=== PATIENT | male | born 1965 | race Caucasian/White ===

== ENCOUNTER 2017-07-20 05:51 | Day surgery (SDC) | payer OTHER, SELFPAY ==
[2017-07-20 06:16] VITALS: BP 135/84; PULSE 66; RESP 16; TEMP 36.3; O2SAT 98; BMI 40.1
[2017-07-20] MEDS: oxyCODONE HCl Cr 10 MG Tablet PO (06:27)
--- NOTE | 2017-07-20 07:06 | PCM.IMDPSTOP ---
Immediate Post-Op Note Date of Procedure: 07/20/17 Primary Surgeon/Physician: Ryan Recinos DO plate cutter: Christian Kohler Pre-Operative Diagnosis: Left knee medial meniscus tear, left medial tibial plateau stress fracture with subchondral edema. Internal derangement of the knee. Post-Operative Diagnosis: Same as above Surgery/Procedure Performed:: Left knee arthroscopy with medial meniscus debridement, partial synovectomy, micro internal fixation of the medial tibial plateau Description of Surgical Findings:: See dictation Estimated Blood Loss: 10 Specimen's removed: None Type of Anesthesia:: General, General/Regional ASA Class: ASA1 Normal Healthy Patient - Admit VTE Documentation VTE Present on Admission: No VTE Mechan Device Prophylaxis: SCD's, Knee High [place] Hose VTE Pharm Prophylaxis ordered?: No Reason prophylaxis not ordered:: Treatment Not Indicated
--- NOTE | 2017-07-20 07:07 | PCM.DC.ORTHO ---
Discharge Activity: Return to Normal Activity, May not drive while taking narcotic pain medications., May Shower, Use Crutches May shower in (days): 2 May resume sexual activity in: No Restrictions Ice area for (Minutes): 20 - Use Polar Care as needed Weight Bearing Status: Weight bearing as tolerated Keep extremity elevated above heart level: Left Leg Additional Activity Instructions:: Activity as tolerated. May shower in 2 days. Do not submerge wound. Remove dressing completely. Replace Micheal wrap to keep swelling down. Range of motion as tolerated. Call your doctor if your incision/area has: Continuous Slow Oozing, Sudden Increased Bleeding, Increased Pain/ Swelling, Increased Redness, Foul Smelling Discharge, Swelling at the incision site Call your doctor if you observe: Fever of 101 or Higher, Coldness, Increased Pain, Numbness or Tingling, Change in Color, Inability to urinate, Inability to have a bowel movement, Using more than one pad per hour, Shortness of breath, Dizziness, Fainting spells, Swelling in the ankles, Chest pain, Prolonged hiccoughing, Increased palpitations (irregular heartbeat), Calf discomfort, Uncontrolled pain Suture Line Care: Avoid Pulling/Pushing, Avoid Pinching/Bending Change Dressing in (Days):: 2 Remove Dressing in (days):: 2 Cleanse incision/area with: Soap & Water Allergies/Adverse Reactions: Allergies No Known Allergies Allergy (Verified 07/13/17 10:04) Medications to take at Discharge Amlodipine [Norvasc] 10 mg PO DAILY 07/13/17 Lisinopril/Hydrochlorothiazide [Zestoretic 20-12.5 mg Tablet] 1 each PO DAILY 07/13/17 Docusate Sodium [Colace] 100 mg PO BID PRN PRN #10 cap 07/20/17 Oxycodone [Oxyir] 10 mg PO Q4H PRN PRN #60 tablet 07/20/17 ProMETHAzine [Phenergan] 25 mg PO Q4H PRN PRN #10 tab 07/20/17 The following prescriptions were given: Oxycodone [Oxyir] 10 mg PO Q4H PRN PRN #60 tablet PRN Reason: Pain ProMETHAzine [Phenergan] 25 mg PO Q4H PRN PRN #10 tab PRN Reason: Nausea Docusate Sodium [Colace] 100 mg PO BID PRN PRN #10 cap PRN Reason: Constipation Primary Care Physician: Mathtew Bender Jr. [Primary Care Provider] - Please Follow Up With: Ryan Recinos DO When: CALL [facility] FOR APPT FOR 2 WEEKS Proposed Discharge Date: 07/20/17
--- NOTE | 2017-07-20 07:10 | RAD_ITS ---
STUDY: X-RAY - LEFT KNEE REASON FOR EXAM: Male, 52 years old. Imaging provided for arthroscopy. TECHNIQUE: 2 coned-down view(s) of the knee. COMPARISON: None. FINDINGS: Intraoperative imaging was provided. A metallic nail is seen in the medial tibial plateau. RAD/Knee 1 or 2 Views IMPRESSION: Metallic nail seen in the medial tibial plateau. Electronically Signed: Dustin Patton MD at 8:54 EST Tel [phone], Service support ,
[2017-07-20] MEDS: Cefazolin 2 GM in 0.9% Normal Saline 100 ML IV (07:14)
[2017-07-20] MEDS: Bupivacaine Mpf 0.5% 30 ML VIAL (08:10)
[2017-07-20 08:39] VITALS: BP 131/81; BP 135/84; PULSE 86; RESP 18; TEMP 36.6; O2SAT 100
[2017-07-20] MEDS: Ketorolac 30 MG/ML Syringe IV (08:44)
[2017-07-20 08:45] VITALS: BP 127/81; PULSE 86; RESP 18; O2SAT 98
[2017-07-20 09:00] VITALS: BP 113/78; PULSE 81; RESP 18; O2SAT 97
--- NOTE | 2017-07-20 09:01 | OP.PCM_ITS ---
Report of Operation Date of Procedure: 07/20/17 Pre-Operative Diagnosis: Left knee medial meniscus tear, left medial tibial plateau stress fracture with subchondral edema. Internal derangement of the knee. Post-Operative Diagnosis: Same as above Surgery/Procedure Performed:: Left knee arthroscopy with medial meniscus debridement, partial synovectomy, micro internal fixation of the medial tibial plateau Description of Surgical Findings:: 52-year-old male with recalcitrant left knee pain that failed nonoperative management to include NSAIDs activity modifications physical therapy and injections. Patient had an MRI that showed subchondral edema and stress reaction to the medial tibial plateau with some degenerative changes noted. Patient had a medial meniscus tear. Having failed conservative measures patient elected for operative intervention. Patient was met in the holding area was left lower extremity was marked and identified by the with surgeon. Patient was taken the operating room in satisfactory condition with somewhat to place to identify patient up procedure limb. Patient received 2 g Ancef. He had a well-placed tourniquet left proximal thigh. He was then prepped and draped in usual fashion. Left lower extremity was elevated Esmarch used for exsanguination and tourniquet was increased to 250 mmHg for roughly 40 minutes. Anterolateral portal was established and we entered into the suprapatellar pouch. There was no return effusion. Superior lateral outflow portal was created. 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 His trochlea showed a very proximal grade 2 segment but then the mid segment was within normal limits. There was no patella maltracking. The patient had a large robust thick plical band medially. Moved in the lateral gutter and there was no loose bodies the popliteal hiatus was normal. We then moved underneath the plical band into the medial compartment established anteromedial portal. Using mechanical shaver and vapor cautery the patient underwent a standard partial synovectomy and plica resection. We performed a chondroplasty of the patella. His trochlear chondromalacia was otherwise stable. Patient's medial compartment showed chondromalacia from his plical band rubbing which was stable. However the was a drop off at roughly 10? of knee flexion moving into the mid range of motion consistent with his medial compartment changes. The patient does not show joseph eburnation of the bone yet but the cartilage is very thin through that area although globally worn. The patient showed a radial tear to the body of the meniscus medial to the posterior horn. This was mechanically debrided using biters and an shaver technique to a stable rim. The patient showed anteromedial wear patterns consistent with his femoral condyle lesion. This was grade 3 and overall nature. Again this was medially located underneath a normal-appearing medial meniscus. This was localized roughly to the 9 o'clock position of the condyle. Patient showed mild notch stenosis but the ACL and PCL are normal. Patient's lateral compartment otherwise was pristine to the femoral condyle he had no meniscal pathology and showed grade 1 to grade 2 changes across the plateau. The popliteal hiatus was normal. After performing a synovectomy chondroplasty meniscus debridement we prepared for the micro internal fixation of the stress reaction region of his medial tibial plateau. Using C-arm visualization the trocar was placed in appropriate position and drilled accordingly. We then injected the calcium phosphate cement using standard technique with gentle pressurization. The scope was left within the joint to evaluate for any extravasation of calcium flakes versus fat bubbles. Because of the cartilage maintenance we did not see any. The joint was subsequently run to be sure we did not miss anything and nothing could be seen. C-arm visualization showed no extravasation of fluid at this point time. Cement was allowed to cure for 8 minutes. This the trocar was then retracted. The portal sites were then closed with 3-0 nylon. He was injected with 50 cc of Marcaine solution around the portal sites in the trocar site on his proximal tibia. He was then dressed with Xeroform 4 x 4's Kerlix roll ABD Micheal wrap. Tourniquet was let down. I was scrubbed and available time during our procedure. Patient be weightbearing as tolerated while the knee arthroscopy protocol from [facility]. We had no drains or complications. Implants included calcium phosphate cement from [employer] using the micro internal fixation fixation technique. Any issues please contact me. data analyst: Christian Kohler Type of Anesthesia:: General, General/Regional Specimen's removed: None Estimated Blood Loss (mL): 10 - Admit VTE Documentation VTE Present on Admission: No VTE Mechan Device Prophylaxis: SCD's, Knee High [place] Hose VTE Pharm Prophylaxis ordered?: No Reason prophylaxis not ordered:: Treatment Not Indicated
[2017-07-20 09:22] VITALS: BP 114/75; BP 135/84; PULSE 80; RESP 16; TEMP 36.6; O2SAT 98
[2017-07-20] MEDS: oxyCODONE 5 MG Tablet 10 MG PO (09:50)
[2017-07-20 10:10] VITALS: BP 135/84
== END 2017-07-20 10:10 | disposition home or self-care (01) ==
LOC: SDC 05:51 → AC 05:52
PROVIDERS: Visit Provider Orthopaedic Surgery
PROC: (CPT 29870; principal; 2017-07-20 06:55)
DX: S83.242A Other tear of medial meniscus, current injury, left knee, initial encounter (principal); M84.362A Stress fracture, left tibia, initial encounter for fracture; M23.92 Unspecified internal derangement of left knee; X58.XXXA Exposure to other specified factors, initial encounter; Y93.9 Activity, unspecified; Y92.9 Unspecified place or not applicable; Y99.9 Unspecified external cause status; I10 Essential (primary) hypertension; G47.30 Sleep apnea, unspecified; Z85.828 Personal history of other malignant neoplasm of skin
CPT/HCPCS: 01400; 29855; 29881; 64447; 73560; 76000; J7120; J2405

== ENCOUNTER → 2017-09-20 15:39 | Outpatient (CLI) | payer OTHER, SELFPAY ==
--- NOTE | 2017-09-20 15:41 | RAD_ITS ---
STUDY: X-RAY - LEFT KNEE REASON FOR EXAM: Male, 52 years old. Pain of the left knee. 9 weeks past surgery. TECHNIQUE: 4 view(s) of the knee. COMPARISON: Prior left knee radiographs of March 16, 2017. Prior limited fluoroscopic views of the knee from July 20, 2017. FINDINGS: Normal visualized distal femur. Broad area of new sclerotic density in the proximal tibia under the medial tibial plateau. Normal proximal tibiofibular articulation. Advanced/increased narrowing of the medial compartment. Normal lateral femorotibial compartment. There is mild degenerative arthrosis of the patellofemoral articulation. Negative for a substantial joint effusion. The soft tissue structures are unremarkable. RAD/Knee 4 or More Views IMPRESSION: Increased narrowing of the medial compartment since the prior radiographs of March 16, 2017. A broad band of sclerosis has developed in the proximal tibia under the medial tibial plateau. Negative for acute fracture or substantial joint effusion. Electronically Signed: Daiana Sherman MD at 0:01 EDT , Service support ,
== END ==
PROVIDERS: Visit Provider Orthopaedic Surgery
DX: M17.11 Unilateral primary osteoarthritis, right knee (principal)
CPT/HCPCS: 73564

== ENCOUNTER 2017-09-20 16:30 | Outpatient (RCR) | payer OTHER, SELFPAY ==
--- NOTE | 2017-09-06 08:45 | HP.PTEVAL_ITS ---
Patient's Visit Information ERYN ERICKSON is a 52 year old M referred to Physical Therapy by Ryan Recinos DO DR.[email or web address] with a diagnosis of Left knee medial meniscus tear, left medial tibial plateau stress fracture. Date of Evaluation: 09/05/17 Physical Therapist: Nadine Rudd - Visit Plan Frequency: 2x /Week Duration: 4 Weeks Plan: Focus on LE and core s/s s/p knee scope- pain management as needed - Subjective Subjective: Patient reports that he feels worse than he has every been. Had surgery 07/20/[address] Recinos- Before surgery pain was on the tibia under the knee cap- scope and injection feels good now the pain has moved. Point tender along the medial joint line and has not gotten any better. Ice helps momentarily but does not last long distances. Back to work 2 weeks post op- eased back in. General Surgery- stands half a day for 90 minutes at a time. No radiating pain. No N/T from surgery. Describes pain as sharp/shooting. No pain when sitting. Instant he gets off of it the pain goes away. Worst: 10/10 Best: 0/10. Had PT for piriformis syndrome right side- over a year ago. Does not get a lot of exercises. No x-rays since surgery- MRI- June. Celebrex started 2 days ago. Last injection was 3 weeks ago on the lateral side of the joint. Shoes- crocs with orthotics. Sleep: no problems. PMHx: HTN , multiple right knee surgeries. Meds: Celebrex, lysinopril, hypothiaside, amlodapine. - Objective Posture: FH, RS- pt is overweight. Gait: antalgic decreased stance on the left LE- poor heel/toe pattern. Stairs: recip with 2 HR-poor control with descent and uses UE. HR/TR: able- discomfort with TR. Balance: WS but unable to SLS for greater than 3 seconds. Squat: (mini)- weight shift to the right and reports pain. Palpation: tender superior to medial joint line. ROM: 0-120 degrees. Strength: Ankle: 5/5, Knee: 4+/5 with pain, Hip: 4/5 Core: poor. Flexibility: HS: moderate, Gastroc: moderate. Observation: incision healing well no s/s of infection - Goals Goal 1:: Patient will be I with HEP and progression Goal Time Frame: 4-6 Weeks Goal 2:: Patient will asc/desc 8 stairs recip with 1 HR and good control Goal Time Frame: 4-6 Weeks Goal 3:: Patient will ambulate >300 feet with a normal gait pattern Goal Time Frame: 4-6 Weeks Goal 4:: Patient will demo 5/5 strength in LE where deficit Goal Time Frame: 4-6 Weeks - Rehabilitation Potential Physical Therapy Diagnosis: Patient presents with hypomobility s/p left knee scope. He has decreased strength and muscular endurance leading to pain with ADL 's. Rehabilitation Potential: Good - Anticipated Interventions Patient/Client Instruction: Educate patient on: Benefits of Fitness Program For the Purpose of:: To increase tolerance to activity/condition/position Therapeutic Exercise to Include: Strength training, Endurance training, Balance training, Body mechanics, Postural training, Flexibilty training, Gait and locomotor training, Dynamic Lumbar Stabilization For the Purpose of:: To improve muscle performance and motor function TENS: Yes Cryotherapy (ice pack, ice massage): Yes Thermo therapy (hot pack): Yes Ultrasound (thermal/non thermal): Yes For the Purpose of:: To decrease pain Thank you for the opportunity to evaluate your patient. For Medicare and Medicare HMO plans, please review the plan of care and approve it. It will need to be FAXED BACK to us at [phone] for Medicare purposes. Please let me know if there are questions or concerns regarding this plan of care. Physician Signature: Date:
--- NOTE | 2017-11-12 14:08 | HP.PT.NRP ---
HP - Discharge Summary (1) - Patient Information ERYN ERICKSON was seen in my office for initial evaluation on 09/05/17. The following Plan of Care was established for this patient: Initial Frequency: 2x /Week Initial Duration: 4 Weeks - Anticipated Interventions Patient/Client Instruction: Educate patient on: Benefits of Fitness Program For the Purpose of:: To increase tolerance to activity/condition/position Therapeutic Exercise to Include: Strength training, Endurance training, Balance training, Body mechanics, Postural training, Flexibilty training, Gait and locomotor training, Dynamic Lumbar Stabilization For the Purpose of:: To improve muscle performance and motor function TENS: Yes Cryotherapy (ice pack, ice massage): Yes Thermo therapy (hot pack): Yes Ultrasound (thermal/non thermal): Yes For the Purpose of:: To decrease pain This patient was last seen in our office . Pertinent comments regarding their Physical therapy will appear below: Patient has not returned for 30 days and is appropriate for discharge. Return to MD for further evaluation as needed. At this point I will be discontinuing this patient from physical therapy. I would be happy to see this patient again in the future if found appropriate by the physician. Thank you! Nadine Rudd
== END 2017-09-20 19:00 | disposition home or self-care (01) ==
LOC: PT 16:30
PROVIDERS: Visit Provider Orthopaedic Surgery
DX: Z98.890 Other specified postprocedural states (principal)
CPT/HCPCS: 97110; 97162

== ENCOUNTER → 2018-03-19 07:46 | Outpatient (CLI) | payer OTHER, SELFPAY ==
[2018-03-19 09:07] LABS: AST(SGOT) 21 U/L (15-37); Alanine Aminotransfer ALT/SGPT 41 U/L (16-61); Albumin, Serum 3.4 g/dL (3.2-5.0); Alkaline Phosphatase 84 U/L (45-117); Anion Gap 8 (5-15); BUN 14 mg/dL (7-18); BUN/Creat Ratio 18.5 RATIO (10-20); Calcium,Total 8.6 mg/dL (8.5-10.1); Chloride 104 mmol/L (98-107); Cholesterol 190 mg/dL (200); Creatinine, Serum 0.76 mg/dL (0.70-1.30); EST Glomerular Filtration Rate 115 mL/min (>60); Est Glom Filt Rate - Afr Amer 139 mL/min (>60); Globulin 3.4 g/dL (2.2-4.2); Glucose 97 mg/dL (74-106); High Density Lipoprotein 39 mg/dL; Potassium 3.5 mmol/L (3.5-5.1); Protein, Total 6.8 g/dL (6.4-8.2); Sodium Level 143 mmol/L (136-145); Triglycerides 120 mg/dL; Very Low Density Lipoprotein 24 mg/dL (5-40)
== END ==
PROVIDERS: Family Provider Family Medicine; PCP Family Medicine; Referring Provider Family Medicine; Visit Provider Family Medicine
DX: I10 Essential (primary) hypertension (principal); E78.5 Hyperlipidemia, unspecified
CPT/HCPCS: 36415; 80053; 80061

== ENCOUNTER → 2018-07-05 14:56 | Outpatient (CLI) | payer OTHER, SELFPAY ==
[2018-07-05 14:56] VITALS: BMI 40.8
--- NOTE | 2018-07-05 14:59 | RAD_ITS ---
STUDY: X-RAY - PELVIS AND BILATERAL HIPS REASON FOR EXAM: Bilateral hip pain, fall today. TECHNIQUE: AP view of the pelvis.? 2 views of the right hip, and 2 views of the left hip were obtained. COMPARISON: None. FINDINGS: Normal visualized soft tissue structures. There is enthesopathy of the right iliac wing. Normal bilateral superior and inferior pubic rami. Normal pubic symphysis. Normal bilateral ischial tuberosities. Normal visualized right femoral head. Normal right acetabulum. Normal right hip joint. Normal visualized left femoral head. Normal left acetabulum. Normal left hip joint. RAD/Hips B/L min 2 views w/ Pelvis IMPRESSION: Enthesopathy of the right iliac wing. Otherwise, unremarkable x-ray examination of the pelvis and bilateral hips. Electronically Signed: Kermit Michaels MD at 15:38 EST Tel , Service support ,
== END ==
PROVIDERS: Family Provider Family Medicine; PCP Family Medicine; Referring Provider Physician Assistant Surgical; Visit Provider Physician Assistant Surgical
DX: S70.02XA Contusion of left hip, initial encounter (principal); S70.12XA Contusion of left thigh, initial encounter; W19.XXXA Unspecified fall, initial encounter; Y93.9 Activity, unspecified; Y92.9 Unspecified place or not applicable; Y99.9 Unspecified external cause status
CPT/HCPCS: 73521

== ENCOUNTER → 2018-07-17 16:09 | Outpatient (CLI) | payer OTHER, SELFPAY ==
[2018-07-05 14:56] VITALS: BMI 40.8
--- NOTE | 2018-07-17 16:26 | MRI_ITS ---
STUDY: MRI RIGHT SHOULDER REASON FOR EXAM: Anterior upper chest pain from fall 2 weeks ago. TECHNIQUE: Standardized fat and water weighted pulse sequences were obtained in all 3 orthogonal planes. COMPARISON: None. FINDINGS: There is mild supraspinatus tendinosis (T2 coronal images 14, 15) without discrete tendon tear. Normal infraspinatus tendon. Normal subscapularis tendon. Normal teres minor tendon. Normal supraspinatus muscle. Normal infraspinatus muscle. Normal subscapularis muscle. There is atrophy with partial fat replacement of the teres minor muscle (T2 axial images 11, 12). There is a minimal volume of fluid in the glenohumeral joint extending into the bicipital tendon sheath. There is mild cystic change of the greater tuberosity. Normal biceps labral complex. Normal intracapsular long biceps tendon. Normal labrum. Normal capsulo- ligamentous complex. There is acromioclavicular arthrosis without substantial undersurface osteophytes (T2 sagittal image 9). There is a Type II morphology (curved), with a neutral orientation. There is no subacromial-subdeltoid bursal fluid. Normal visualized coracohumeral and coracoacromial ligaments. Normal deltoid muscle. Normal trapezius muscle. MRI/Upper Ext Joint Only(Routine) IMPRESSION: Mild supraspinatus tendinosis without demonstrated rotator cuff tear. Atrophy of the teres minor muscle. Acromioclavicular arthrosis. Right pectoralis major tear, described on the MRI chest report. Electronically Signed: Kermit Michaels MD at 10:24 EST Tel , Service support ,
--- NOTE | 2018-07-17 16:27 | MRI_ITS ---
STUDY: MR CHEST WITHOUT CONTRAST (ATTENTION RIGHT PECTORALIS MAJOR) REASON FOR EXAM: Right pectoralis tear, fall 2 weeks ago. TECHNIQUE: Standardized fat and water weighted pulse sequences were obtained in all 3 orthogonal planes. COMPARISON: None. FINDINGS: There is a tear of the sternal head of the right pectoralis major at the musculotendinous junction with a hematoma (T2 axial images 11-18). The hematoma measures approximately 6.2 x 5.6 cm (AP x length). There is a partial tendon tear of the clavicular head of the right pectoralis major near the musculotendinous junction (inversion recovery axial image 13). MRI/Chest without Contrast IMPRESSION: Tear of the sternal head of the right pectoralis major at the musculotendinous junction with hematoma. Partial tear of the tendon of the clavicular head of the right pectoralis major. Electronically Signed: Kermit Michaels MD at 10:23 EST Tel , Service support ,
--- OUTSIDE RECORDS SUMMARY | 2018-09-16 05:27 | XMS RPT_ITS ---
:1965 Author Organization OH[facility] Care Team Providers Name Role Phone FELICIA CROOKS (DIRECTOR OF PREMIUM SEAT SALES) Referring Unavailable AVTAR BUNCH (PA) Referring Unavailable MEAGHAN BROUSSARD Admitting Unavailable MEAGHAN BROUSSARD Attending Unavailable RHEA ANDERSON Consulting Unavailable MEAGHAN BROUSSARD Attending Unavailable AVTAR BUNCH (ANABELL) Referring Unavailable MEAGHAN BROUSSARD Referring Unavailable MEAGHAN BROUSSARD Referring Unavailable AVTAR BUNCH (PA) Attending Unavailable AVTAR BUNCH (PA) Referring Unavailable AVTAR BUNCH (PA) Referring Unavailable CEBUL III, ELIAS A Attending Unavailable CEBUL III, ELIAS A Referring Unavailable AVTAR BUNCH (PA) Attending Unavailable JULIO C, AVTAR Retana (PA) Referring Unavailable GABE, KERMIT Attending Unavailable GABE, KERMIT Attending Unavailable GABE, KERMIT Referring Unavailable Mitchel, William Attending Unavailable Cebul III, Elias Referring Unavailable Mitchel, William Attending Unavailable Mitchel, William Referring Unavailable Cebul III, Elias Primary Care Unavailable Mitchel, William Attending Unavailable Mitchel, William Referring Unavailable Cebul III, Elias Primary Care Unavailable Jorje, Ryan Attending Unavailable Jorje, Ryan Referring Unavailable Cebul Jr., Elias Primary Care Unavailable Jorje, Ryan Attending Unavailable Jorje, Ryan Referring Unavailable Cebul Jr., Elias Primary Care Unavailable Cebul III, Elias Attending Unavailable Cebul III, Elias Referring Unavailable Cebul III, Elias Primary Care Unavailable PROBLEMS PROBLEMS DATE TYPE CONDITION / CODE ATTENDING STATUS SOURCE 07/19/2018 Unknown S29.011A - Strain of William Grullon Active [facility] thorax, initial Repository encounter / S29.011A(ICD-10) 07/05/2018 Unknown S70.02XA - Contusion William Grullon Active [facility] of left hip, initial [facility] encounter / Hospital S70.02XA(ICD-10) Repository 07/05/2018 Unknown S70.12XA - Contusion William Grullon Active [facility] of left thigh, [facility] initial encounter / Hospital S70.12XA(ICD-10) Repository 12/18/2017 Active Unknown / JULIO C Active [facility] UNK(Unknown) AVTAR Retana (PA) Clinic Main [place] Repository 11/30/2017 Active Unilateral primary AARTI MEAGHAN Active [facility] osteoarthritis, left M Clinic Other knee / [place] M17.12(ICD-10) Repository 11/30/2017 Active Presence of MEAGHAN BROUSSARD Active [facility] unspecified M Clinic Other artificial knee [place] joint / Repository Z96.659(ICD-10) 09/15/2016 Active Hyperlipidemia, NA [facility]ly [facility] unspecified / Clinic Other E78.5(ICD-10) [place] Repository 09/15/2016 Active Morbid (severe) NA Formerly [facility] obesity due to Clinic Other excess calories / [place] E66.01(ICD-10) Repository 09/15/2016 Active Essential (primary) NA Active [facility] hypertension / Clinic Other I10(ICD-10) [place] Repository 09/01/2016 Active Obstructive sleep NA Active [facility] apnea (adult) Clinic Other (pediatric) / [place] G47.33(ICD-10) Repository 11/08/2017 Active Encounter for other NA Active [facility] preprocedural Clinic Other examination / [place] Z01.818(ICD-10) Repository 11/08/2017 Active Pain in left knee / NA Active [facility] M25.562(ICD-10) Clinic Other [place] Repository 11/08/2017 Active Gastro-esophageal NA Active [facility] reflux disease Clinic Other without esophagitis [place] / K21.9(ICD-10) Repository 10/18/2017 Active 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 Clinic Main osteoarthritis, left [place] knee / Repository M17.32(ICD-10) 10/18/2017 Active Anemia, unspecified NA [facility]ly [facility] / D64.9(ICD-10) Clinic Main [place] Repository 11/15/2017 Unknown Z98.890 - Other JorjeRyan Active [facility] specified [facility] postprocedural Hospital states / Repository Z98.890(ICD-10) 09/20/2017 Unknown M17.11 - Unilateral Ryan Recinos [facility] primary [facility] osteoarthritis, Hospital right knee / Repository M17.11(ICD-10) PROCEDURES PROCEDURES No Procedure Records FoundRESULTS RESULTS CHEST WITHOUT Observed: 07/17/2018 Status: F Source: [facility] CONTRAST 4:27 PM [facility] RE[facility] Imaging Services [address] [place] [address] Chest without Contrast MR#: [id number] Acct: [id number] Name: JUSTUS ERICKSON Rep #: [id number] : 1965 M 53 From: Kermit Michaels MD PCP: Elias Gibbs III, MD Status: REG CLI Study: Chest without Contrast Date of Exam: 07/17/18 Exam# [id number] Ordering Dr: William Grullon STUDY: MR CHEST WITHOUT CONTRAST (ATTENTION RIGHT PECTORALIS MAJOR) REASON FOR EXAM: Right pectoralis tear, fall 2 weeks ago. TECHNIQUE: Standardized fat and water weighted pulse sequences were obtained in all 3 orthogonal planes. COMPARISON: None. FINDINGS: There is a tear of the sternal head of the right pectoralis major at the musculotendinous junction with a hematoma (T2 axial images 11-18). The hematoma measures approximately 6.2 x 5.6 cm (AP x length). There is a partial tendon tear of the clavicular head of the right pectoralis major near the musculotendinous junction (inversion recovery axial image 13). MRI/Chest without Contrast IMPRESSION: Tear of the sternal head of the right pectoralis major at the musculotendinous junction with hematoma. Partial tear of the tendon of the clavicular head of the right pectoralis major. Electronically Signed: Kermit Michaels MD at 10:23 EST Tel , Service support , CC: William HUNG; Elias Gibbs III, MD Manufacturing Engineering Director: Signed UPPER EXT JOINT Observed: 07/17/2018 Status: F Source: FAIRFAX ONLY(ROUTINE) 4:26 PM [facility] Imaging Services [address] [place] [address] Upper Ext Joint Only(Routine) MR#: [id number] Acct: [id number] Name: JUSTUS ERICKSON Rep #: [id number] : 1965 M 53 From: Kermit Michaels MD PCP: Elias Gibbs III, MD Status: REG CLI Study: Upper Ext Joint Only(Routine) Date of Exam: 07/17/18 Exam# [id number] Ordering Dr: Mikhail Tejada STUDY: MRI RIGHT SHOULDER REASON FOR EXAM: Anterior upper chest pain from fall 2 weeks ago. TECHNIQUE: Standardized fat and water weighted pulse sequences were obtained in all 3 orthogonal planes. COMPARISON: None. FINDINGS: There is mild supraspinatus tendinosis (T2 coronal images 14, 15) without discrete tendon tear. Normal infraspinatus tendon. Normal subscapularis tendon. Normal teres minor tendon. Normal supraspinatus muscle. Normal infraspinatus muscle. Normal subscapularis muscle. There is atrophy with partial fat replacement of the teres minor muscle (T2 axial images 11, 12). There is a minimal volume of fluid in the glenohumeral joint extending into the bicipital tendon sheath. There is mild cystic change of the greater tuberosity. Normal biceps labral complex. Normal intracapsular long biceps tendon. Normal labrum. Normal capsulo- ligamentous complex. There is acromioclavicular arthrosis without substantial undersurface osteophytes (T2 sagittal image 9). There is a Type II morphology (curved), with a neutral orientation. There is no subacromial-subdeltoid bursal fluid. Normal visualized coracohumeral and coracoacromial ligaments. Normal deltoid muscle. Normal trapezius muscle. MRI/Upper Ext Joint Only(Routine) IMPRESSION: Mild supraspinatus tendinosis without demonstrated rotator cuff tear. Atrophy of the teres minor muscle. Acromioclavicular arthrosis. Right pectoralis major tear, described on the MRI chest report. Electronically Signed: Kermit Michaels MD at 10:24 EST Tel , Service support , CC: Elias Gibbs III, MD; Mikhail HNUG Manufacturing Engineering Director: Signed URGENT CARE VISIT Observed: 07/08/2018 Status: F Source: [facility] REPORT 8:36 AM [facility] [place] [address] OFFICE VISIT Date of Service: 07/05/18 MR#: [id number] Acct: [id number] Name: DREROGERJUSTUS Tiburcio Rep #: [id number] : 1965 Provider: William HUNG Age/Sex: 53/M Location: [facility] Status: Signed Intake Vital Signs07/05/18 Body Mass Index (BMI) 40.1 07/05/18 Height 6 ft Intake Visit Reasons: FELL AT WORK Is patient in pain?: Yes Allergies No Known Allergies Allergy (Verified 07/05/18 14:48) Medications Amlodipine [Norvasc] 10 mg PO DAILY 07/13/17 [History Confirmed 07/05/18] Lisinopril/Hydrochlorothiazide [Zestoretic 20-12.5 mg Tablet] 1 ea PO DAILY 07/13/17 [History Confirmed 07/05/18] Docusate Sodium [Colace] 100 mg PO BID PRN PRN #10 cap 07/20/17 [Rx Confirmed 07/05/18] proMETHazine tablet [Phenergan] 25 mg PO Q4H PRN PRN #10 tab 07/20/17 [Rx Confirmed 07/05/18] celecoxib 100 mg capsule 100 mg PO BID #60 cap 09/03/17 [Rx Confirmed 07/05/18] placard See Rx Instructions .ROUTE .COMPLEX #1 09/12/17 [Rx Confirmed 07/05/18] oxycodone 5 mg tablet 10 mg PO Q8H PRN #60 tab 11/23/17 [Rx Confirmed 07/05/18] PFSH Medical History Hypertension (Chronic) Surgical History History of left knee replacement (Acute) Social History Smoking Status: Never smoker HPI HPI Details: JUSTUS ERICKSON, is a 53 M who presents to the office today for initial evaluation of left hip and right pectoral pain after falling at work last night. Patient states that he was walking down the hallway and then turned into another cord or and when he turned the floor was wet causing him to fall. He states that he caught himself with his right arm and felt a sharp shearing type pain in the right pectoral region. He also reports left hip pain that was seemingly minimal at the time of the incident however today he states his pain has increased particularly with any type of forward extension or going up or down stairs. He denies any previous injuries to either the right shoulder or left hip. He denies hitting his head or any moments of loss of consciousness. He denies any numbness or tingling or loss in range of motion to either. No other associated symptoms or alleviating/aggravating factors. ROS Const Constitutional: No chills, fever(s) or fatigue Resp Respiratory: No shortness of breath or chest congestion Cardio Cardiology: No chest pain at rest, chest pain with exertion or shortness of breath Musc Musculoskeletal: Positive for abnormal walking, joint pain and stiffness; no tingling, numbness or radiating pain into limb Skin Skin: No wounds or lesions Neuro Neurology: Positive for abnormal walking; no behavioral changes, confusion, tingling or numbness Psych Psychiatric: No behavioral changes, No confusion Endo Endocrine: No fatigue Exam Const General: cooperative, healthy appearing [facility] Head: normocephalic, atraumatic Ears: hearing grossly normal bilaterally Eyes General: appearance normal, both eyes and all related structures Pupils: PERRL Resp Effort AND Inspection: normal respiratory effort Skin General: no rashes or lesions noted Neuro General: alert, CN's II-XI intact bilaterally Cognition: normal cognition Speech: speech normal Gait: normal gait Motor: muscle tone normal throughout Sensory Exam: no sensory deficits noted Extrem General: full ROM, normal capillary refill, no joint enlargement, normal exam except as noted Other: Pain upon forward flexion of the left hip. No pain to extension or abduction at the left hip. No obvious deformity upon palpation. Mild ecchymosis over the right middle upper arm with no tenderness to palpation. There is moderate tender to palpation of the right pectoral muscle toward the point of insertion. Positive cross arm test. Negative apley scratch or pain upon abduction of the right arm. Psych Appearance: grossly normal Mental Status: mental status grossly normal Assessment AND Plan Problems 1. Contusion of left hip and thigh, initial encounter S70.02XA; S70.12XA Status Acute 2. Strain of right pectoralis muscle, initial encounter S29.011A Status Acute Plan X-ray of the hip and pelvis read and interpreted by myself finding no acute osseous abnormalities. Awaiting radiology interpretation at time of dictation. [employer] 14 filled out with patient released back to work today with no restrictions. Form C9 filled out requesting MRI of the right chest and shoulder. Patient advised to continue with ibuprofen and ice 3 times daily for 20 minutes. Patient advised to follow-up after his MRI or sooner should he have any worsening symptoms or new concerns. Patient advised of potential red flags and when appropriate to report to the ED. Patient verbalized understanding and agreement with all the above. Orders Orders: Coding Level of Care Code Off vis,new,level 4 Diagnoses Contusion of left hip and thigh, initial encounter S70.02XA; S70.12XA Encounter type: initial encounter Strain of right pectoralis muscle, initial encounter S29.011A Encounter type: initial encounter 07/08/18 0836 <Electronically signed by William HUNG> Date William HUNG Cosigner Signature: Date (if applicable) CC: HIPS B/L MIN 2 Observed: 07/05/2018 Status: F Source: [facility] VIEWS W/ PELVIS 3:00 PM [facility] Imaging Services [address] [place] [address] Hips B/L min 2 views w/ Pelvis MR#: [id number] Acct: [id number] Name: JUSTUS ERICKSON Rep #: [id number] : 1965 53 From: Kermit Michaels MD PCP: Elias Gibbs III, MD Status: REG CLI Study: Hips B/L min 2 views w/ Pelvis Date of Exam: 07/05/18 Exam# [id number] Ordering Dr: William Grullon STUDY: X-RAY - PELVIS AND BILATERAL HIPS REASON FOR EXAM: Bilateral hip pain, fall today. TECHNIQUE: AP view of the pelvis.? 2 views of the right hip, and 2 views of the left hip were obtained. COMPARISON: None. FINDINGS: Normal visualized soft tissue structures. There is enthesopathy of the right iliac wing. Normal bilateral superior and inferior pubic rami. Normal pubic symphysis. Normal bilateral ischial tuberosities. Normal visualized right femoral head. Normal right acetabulum. Normal right hip joint. Normal visualized left femoral head. Normal left acetabulum. Normal left hip joint. RAD/Hips B/L min 2 views w/ Pelvis IMPRESSION: Enthesopathy of the right iliac wing. Otherwise, unremarkable x-ray examination of the pelvis and bilateral hips. Electronically Signed: Kermit Michaels MD at 15:38 EST Tel , Service support , CC: William HUNG; Elias Gibbs III, MD Manufacturing Engineering Director: Signed PROGRESS Observed: 06/21/2018 Status: COMPLETED Source: [facility] 4:05 PM [facility] REPOSITORY HNO ID: [id number] Author: Kermit High V Service: (none) Author Type: Physician Type: Progress Notes Filed: 06/21/2018 4:09 PM Note Text: Addendum- recheck on 06/21/18 due to worsening shoulder pain. Murray is leaving for vacation (cruise) in 4 days, and shoulder pain is so severe that he is not sure if he will be able to go in the state he is in. He would like to repeat the corticosteroid injection in slightly different location, as he is having sharp and severe pain over the greater tuberosity at insertion point of the rotator cuff. Exam shows restricted range of motion due to pain. Rotator cuff strength testing is difficult to evaluate due to pain response. No significant redness or swelling noted. The risk, benefits and alternatives of injection and no injection therapy were discussed. Personnel were discussed and the patient consented for an injection. The patient has been identified by name and birthdate. The injection site was identified, marked and prepped with a alcohol swab. Time out completed. The lateral shoulder was injected with a 25 gauge needle with 1cc Kenalog (40mg), 2cc xylocaine plain 1% and 2cc marcaine plain 0.5%. The injection site was then dressed with a bandaid. The patient tolerated the injection well. The patient was instructed to call the office if any adverse local effects occurred or any if any questions or concerns arise. Patient's request for medication is as follows Signed Prescriptions Disp Refills betamethasone acetate-betamethasone sodium phosphate 6 mg injection (CELESTONE) oxyCODONE ER (OXYCONTIN) 10 mg 12 hr tablet 20 tablet 0 Sig: Take 1 tablet by mouth every 12 hours for 10 days. ALDEN Class: C-II He is given a short-term course of medication for pain with the understanding that he will not be working or driving while taking this medication and it is for short-term use only, until the injection takes full effect and normal motion is restored. Kermit High DO PROGRESS Observed: 06/17/2018 Status: COMPLETED Source: [place] 10:05 AM [facility] REPOSITORY O ID: [id number] Author: Kermit High V Service: (none) Author Type: Physician Type: Progress Notes Filed: 06/17/2018 10:09 AM Note Text: Patient presents with: left shoulder pain, follow up HPI: Justus is a 53 year old male who presents for evaluation of shoulder pain for 2 weeks. He received a subacromial injection from hi 3 months ago, and had great symptom relief until recently. He has been exercising more lately, and thinks it may be contributing to the exacerbation of pain. He states it is not as severe as it was last time, but present every day and beginning to interfere with daily activities. PE: General: Well-appearing male in no acute distress. Skin: Intact to inspection and palpation. Psychiatric: Mood and affect appropriate. A and O x3. Musculoskeletal Exam: Gait and Station normal. Cervical spine: Normal ROM and normal to palpation. Bilateral upper extremities show equal motion of the elbows, and wrists. Left shoulder exam shows active forward flexion to 160, abduction to 160, IR to belt line, ER adduction was 60. Positive for Hawkin's and Neer's tests. Rotator cuff strength 5/5. Normal stability to testing. Normal tone. No pain to palpation of the AC joint. No pain to palpation of the bicipital groove. Neurologic Exam: Intact sensation and reflexes in both upper extremities. Vascular: 2+ radial pulses, both upper extremities. IMPRESSION: Left shoulder subacromial bursitis with calcification. RECOMMENDATIONS: Continue with shoulder rehab exercises- handout given with examples of exercises. The risk, benefits and alternatives of injection and no injection therapy were discussed. Personnel were discussed and the patient consented for an injection. The patient has been identified by name and birthdate. The injection site was identified, marked and prepped with a alcohol swab. Time out completed. The subacromial space was injected with a 25 gauge needle with 1cc Celestone (6 mg), 2cc xylocaine plain 1% and 2cc marcaine plain 0.5%. The injection site was then dressed with a bandaid. The patient tolerated the injection well. The patient was instructed to call the office if any adverse local effects occurred or any if any questions or concerns arise. Kermit High DO PROGRESS Observed: 06/17/2018 Status: COMPLETED Source: [place] 9:38 AM [facility] REPOSITORY O ID: [id number] Author: Heather Nelson Ma Service: (none) Author Type: (none) Type: Progress Notes Filed: 06/17/2018 10:09 AM Note Text: Patient presents with: Established Patient: Follow up left shoulder pain AMB ROOMING INTAKE FLOWSHEET DATA Risk Screening Do you have concerns about personal safety or safety in the home?: No Pain Pain Score: 4/10 Pain Location: Shoulder-Left Description: Aching Duration Amount of Time: 1 Duration Units: Weeks Frequency: Continuous Intervention: Medication Patient states he is taking Ibuprofen for the pain and helps some. Wants a cortisone injection. CNOV Observed: 06/17/2018 Status: COMPLETED Source: [place] 9:30 AM [facility] Office Visit ([facility]) JUSTUS ERICKSON III ([id number]) 1965 M EMP Date Time Provider Department 06/17/18 9:30 AM KERMIT HIGH During your visit today, we recorded the following information about you: Blood pressure 137/91 Heather Nelson Ma 06/17/2018 10:09 AM Signed Patient presents with: Established Patient: Follow up left shoulder pain AMB ROOMING INTAKE FLOWSHEET DATA Risk Screening Do you have concerns about personal safety or safety in the home?: No Pain Pain Score: 4/10 Pain Location: Shoulder-Left Description: Aching Duration Amount of Time: 1 Duration Units: Weeks Frequency: Continuous Intervention: Medication Patient states he is taking Ibuprofen for the pain and helps some. Wants a cortisone injection. Kermit High DO 06/17/2018 10:09 AM Signed Patient presents with: left shoulder pain, follow up HPI: Justus is a 53 year old male who presents for evaluation of shoulder pain for 2 weeks. He received a subacromial injection from hi 3 months ago, and had great symptom relief until recently. He has been exercising more lately, and thinks it may be contributing to the exacerbation of pain. He states it is not as severe as it was last time, but present every day and beginning to interfere with daily activities. PE: General: Well-appearing male in no acute distress. Skin: Intact to inspection and palpation. Psychiatric: Mood and affect appropriate. A and O x3. Musculoskeletal Exam: Gait and Station normal. Cervical spine: Normal ROM and normal to palpation. Bilateral upper extremities show equal motion of the elbows, and wrists. Left shoulder exam shows active forward flexion to 160, abduction to 160, IR to belt line, ER adduction was 60. Positive for Hawkin's and Neer's tests. Rotator cuff strength 5/5. Normal stability to testing. Normal tone. No pain to palpation of the AC joint. No pain to palpation of the bicipital groove. Neurologic Exam: Intact sensation and reflexes in both upper extremities. Vascular: 2+ radial pulses, both upper extremities. IMPRESSION: Left shoulder subacromial bursitis with calcification. RECOMMENDATIONS: Continue with shoulder rehab exercises- handout given with examples of exercises. The risk, benefits and alternatives of injection and no injection therapy were discussed. Personnel were discussed and the patient consented for an injection. The patient has been identified by name and birthdate. The injection site was identified, marked and prepped with a alcohol swab. Time out completed. The subacromial space was injected with a 25 gauge needle with 1cc Celestone (6 mg), 2cc xylocaine plain 1% and 2cc marcaine plain 0.5%. The injection site was then dressed with a bandaid. The patient tolerated the injection well. The patient was instructed to call the office if any adverse local effects occurred or any if any questions or concerns arise. DO Kermit Cabral DO 06/21/2018 3:52 PM Signed Addended by: KERMIT HIGH DO, V on: 06/21/2018 03:52 PM Modules accepted: Yaya High DO 06/21/2018 4:09 PM Signed Addendum- recheck on 06/21/18 due to worsening shoulder pain. Murray is leaving for vacation (cruise) in 4 days, and shoulder pain is so severe that he is not sure if he will be able to go in the state he is in. He would like to repeat the corticosteroid injection in slightly different location, as he is having sharp and severe pain over the greater tuberosity at insertion point of the rotator cuff. Exam shows restricted range of motion due to pain. Rotator cuff strength testing is difficult to evaluate due to pain response. No significant redness or swelling noted. The risk, benefits and alternatives of injection and no injection therapy were discussed. Personnel were discussed and the patient consented for an injection. The patient has been identified by name and birthdate. The injection site was identified, marked and prepped with a alcohol swab. Time out completed. The lateral shoulder was injected with a 25 gauge needle with 1cc Kenalog (40mg), 2cc xylocaine plain 1% and 2cc marcaine plain 0.5%. The injection site was then dressed with a bandaid. The patient tolerated the injection well. The patient was instructed to call the office if any adverse local effects occurred or any if any questions or concerns arise. Patient's request for medication is as follows Signed Prescriptions Disp Refills betamethasone acetate-betamethasone sodium phosphate 6 mg injection (CELESTONE) oxyCODONE ER (OXYCONTIN) 10 mg 12 hr tablet 20 tablet 0 Sig: Take 1 tablet by mouth every 12 hours for 10 days. ALDEN Class: C-II He is given a short-term course of medication for pain with the understanding that he will not be working or driving while taking this medication and it is for short-term use only, until the injection takes full effect and normal motion is restored. Kermit High DO Referring Provider: KERMIT HIGH V [[id number]] Allergies As of Date: 06/17/2018 (No Known Allergies) Date Reviewed: 06/17/2018 Reviewed by: Heather Nelson Ma - Fully Assessed Reason for Visit: Established Patient [175] Cmt: Follow up left shoulder pain Primary Visit Diagnosis:Subacromial impingement of left shoulder [M75.42] Other Visit Diagnosis:Chronic left shoulder pain [M25.512, G89.29] Order(s):[] betamethasone acetate-betamethasone sodium phosphate 6 mg injection (CELESTONE)Disp: Rfl: oxyCODONE ER (OXYCONTIN) 10 mg 12 hr tabletTake 1 tablet by mouth every 12 hours for 10 days.Disp: 20 tabletRfl: 0 MRI SHOULDER WO IVCON LT [[id number]] Order #: [id number] FUTURE Prescriptions as of 06/17/2018 Sig: AMLODIPINE 10 MG TABLET TAKE 1 TABLET BY MOUTH ONCE D* COMPOUNDED PRESCRIPTION CPAP @ 9 cm of water w/humidi* COMPOUNDED PRESCRIPTION CPAP/BIPAP MASK A7034 CUSH* LOSARTAN 100 MG-HYDROCHLOROTH* Take 1 tablet by mouth once d* NALTREXONE 8 MG-BUPROPION 90 * 1 po qam for 1 wk; then 1 po * ASPIRIN 81 MG TABLET,DELAYED * Take 1 tablet by mouth twice * DOCUSATE SODIUM 100 MG CAPSULE Take 1 capsule by mouth twice* Patient not taking: Reported on 04/02/2018 MUPIROCIN 2 % TOPICAL OINTMENT Please apply 0.5 inches to th* Patient not taking: Reported on 04/02/2018 OXYCODONE ER 10 MG TABLET,CRU* Take 1 tablet by mouth every * PANTOPRAZOLE 20 MG TABLET,DEL* Take 1 tablet by mouth once d* Problem List As Of Date 06/17/2018 Noted Resolved Pain in testis [N50.819] INVALID FOR*09/15/2016 Family history of colon cancer [Z80.0] INVALID FOR* Esophageal reflux [K21.9] INVALID FOR* Acute gastritis without mention of hemorrhage [*INVALID FOR*09/15/2016 ABDON (obstructive sleep apnea) [G47.33] INVALID FOR* Tendinopathy of left gluteus medius [M67.952] INVALID FOR*03/22/2017 Essential hypertension [I10] INVALID FOR* Morbid obesity due to excess calories (HCC) [E6*INVALID FOR* Situational depression [F43.21] INVALID FOR*03/22/2017 Hyperlipidemia LDL goal <100 [E78.5] INVALID FOR* Primary osteoarthritis of left knee [M17.12] INVALID FOR*11/30/2017 More... Obesity, Class III, BMI >= 40 [E66.01] INVALID FOR* S/P total knee arthroplasty [Z96.659] INVALID FOR*11/30/2017 Other tear of medial meniscus, current injury, *INVALID FOR* Other meniscus derangements, unspecified medial*INVALID FOR* Benign colon polyp [K63.5] INVALID FOR* Prescriptions ordered this encounter Disp Refills Start End BETAMETHASONE ACETATE AND SODIUM ANDERS* 06/17/2018 06/17/2018 Route: OTHER OXYCODONE ER 10 MG TABLET,CRUSH RESI* 20 t* 0 06/21/2018 07/01/2018 Class: Print RX Route: ORAL Sig: Take 1 tablet by mouth every 12 hours for 10 days. Medications Discontinued During This Encounter oxyCODONE IR (ROXICODONE) 5 mg immed* 60 t* 0 03/05/2018 06/21/2018 Class: Print RX Sig: Take 1-2 tabs every 8 hours NEEDED for pain PATIENT IS STATUS POST MAJOR ORTHOPEDIC SURGERY Disc: Reason for discontinue is not on file. Encounter Status:Closed by KERMIT HIGH DO, V on 06/17/18 PROGRESS Observed: 04/02/2018 Status: COMPLETED Source: [place] 4:27 PM [facility] [place] REPOSITORY [facility] ID: [id number] Author: Kemrit High V Service: (none) Author Type: Physician Type: Progress Notes Filed: 04/02/2018 4:32 PM Note Text: Patient presents with: New Patient: left shoulder pain, calcium deposit HPI: Justus is a 52 year old male who presents for evaluation of shoulder pain for 2 weeks. The pain was the result of no specific injury. The location is along the lateral aspect of the shoulder, with radiation to the mid brachium. The pain is described as a sharp pain, intensity is 5/10 at its worse. The pain is intermittant in nature. The pain is relieved with rest, and aggravated with reaching, lifting and overhead movements. The pain wakes the patient at night. Over the counter NSAIDs do not improve the symptoms. Previous treatments include NSAIDS. Previous studies include X-ray. MEDICATIONS: Current Outpatient Prescriptions on File Prior to Visit: losartan-hydrochlorothiazide (HYZAAR) 100-25 mg per tablet Take 1 tablet by mouth once daily. amLODIPine (NORVASC) 10 mg tablet TAKE 1 TABLET BY MOUTH ONCE DAILY. aspirin, enteric coated (ASPIR-LOW) 81 mg EC tablet Take 1 tablet by mouth twice daily for [address] (PROTONIX) 20 mg tablet Take 1 tablet by mouth once daily for 14 days. COMPOUNDED PRESCRIPTION CPAP/BIPAP MASK A7034 CUSHION FOR NASAL APAP A7032 DISPOSABLE FILTER/APAP A7038 CPAP TUBING WHEATING ELEMENT A4604 HEADGEAR USED W/CPAP/BIPAP A7035 COMPOUNDED PRESCRIPTION CPAP @ 9 cm of water w/humidification. Mask ( medium ResMed Browning FX nasal pillows) optional chin strap (if indicated) , filters, tubing, humidifier and lifetime supplies docusate sodium (COLACE) 100 mg capsule Take 1 capsule by mouth twice daily. (Patient not taking: Reported on 04/02/2018 ) mupirocin (BACTROBAN) 2 % ointment Please apply 0.5 inches to the inside of each nostril with a Q-tip two times a day for the 5 consecutive days prior to surgery. (Patient not taking: Reported on 04/02/2018 ) naltrexone-bupropion (CONTRAVE) 8-90 mg TbER 1 po qam for 1 wk; then 1 po BID for 1 wk; then 2 po qam and 1 every afternoon for 1 wk; then 2 po BID No current facility-administered medications on file prior to visit. ALLERGIES: Patient has no known allergies. HISTORIES: PAST MEDICAL HISTORY Diagnosis Date - Essential hypertension 09/15/2016 - HTN (hypertension) - Hyperlipidemia LDL goal <100 09/15/2016 - Situational depression 09/15/2016 - Skin cancer of face 09/06/10 Invasive SCC left lateral cheek PAST SURGICAL HISTORY Procedure Laterality Date - COLONOSCOP W/ OR W/O BRSH SPEC 06/10/2004 Colonoscopy - COLONOSCOP W/ OR W/O BRSH SPEC 04/08/10 Normal - EGD W/O BRSH SPECIMEN W/BX 04/08/10 Mild antral gastritis - EGD W/O OR W/BRUSH/WASH 06/10/2004 EGD - KNEE SCOPE,DIAGNOSTIC 1982 right Arthroscopy, knee - MAL LESION FACE,EAR,EYEL <5MM 09/06/10 Exc. left cheek skin lesion/ablate skin tags axilla bilaterally - PAST SURGICAL HISTORY OF 1997 knee surgery - SHAV SKIN LES <5MM FACE,FACIAL 04/01/14 Shave bx right infraorbit - SIMP REPAIR SCALP,NECK,TRK <2.5CM 10/25/12 Right thumb lac repair Social History Marital status: Spouse name: Years of education: Number of children: Social History Main Topics Smoking status: Never Smoker Smokeless tobacco: Never Used Alcohol use: Yes Comment: Occasional Drug use: No PE: General: Well-appearing male in no acute distress. Skin: Intact to inspection and palpation. Psychiatric: Mood and affect appropriate. A and O x3. Musculoskeletal Exam: Gait and Station normal. Cervical spine: Normal ROM and normal to palpation. Bilateral upper extremities show equal motion of the elbows, and wrists. Left shoulder exam shows active forward flexion to 160, abduction to 160, IR to belt line, ER adduction was 60. Positive for Hawkin's and Neer's tests. Rotator cuff strength 5/5. Normal stability to testing. Normal tone. No pain to palpation of the AC joint. No pain to palpation of the bicipital groove. Neurologic Exam: Intact sensation and reflexes in both upper extremities. Vascular: 2+ radial pulses, both upper extremities. IMPRESSION: Left shoulder subacromial bursitis with calcification. RECOMMENDATIONS: I recommend Continuing with home exercises for shoulder rehabilitation and range of motion The risk, benefits and alternatives of injection and no injection therapy were discussed. Personnel were discussed and the patient consented for an injection. The patient has been identified by name and birthdate. The injection site was identified, marked and prepped with a alcohol swab. Time out completed. The subacromial space was injected with a 25 gauge needle with 1cc Celestone (6 mg), 2cc xylocaine plain 1% and 2cc marcaine plain 0.5%. The injection site was then dressed with a bandaid. The patient tolerated the injection well. The patient was instructed to call the office if any adverse local effects occurred or any if any questions or concerns arise. Kermit High DO PROGRESS Observed: 04/02/2018 Status: COMPLETED Source: [place] 4:01 PM [facility] [place] REPOSITORY [facility] ID: [id number] Author: Vanessa Pond RN Service: (none) Author Type: (none) Type: Progress Notes Filed: 04/02/2018 4:55 PM Note Text: AMB ROOMING INTAKE FLOWSHEET DATA Risk Screening Do you have concerns about personal safety or safety in the home?: No Pain Pain Score: 5/10 Pain Location: Shoulder-Left Description: Aching, Sharp Duration Amount of Time: 2 Duration Units: Weeks Frequency: Continuous Intervention: Medication Patient presents with: New Patient: left shoulder pain, calcium deposit Pt. had recent xray by Dr. Wright. He has had pain x 2 weeks and has been taking ibuprofen 800 mg three times daily, without relief. CNOV Observed: 04/02/2018 Status: COMPLETED Source: [place] 4:00 PM [facility] REPOSITORY Office Visit ([facility]) DREJUSTUS Tiburcio LUBIN ([id number]) 1965 [facility] Date Time Provider Department 04/02/18 4:00 PM KERMIT HIGH During your visit today, we recorded the following information about you: Vanessa Pond RN 04/02/2018 4:55 PM Addendum AMB ROOMING INTAKE FLOWSHEET DATA Risk Screening Do you have concerns about personal safety or safety in the home?: No Pain Pain Score: 5/10 Pain Location: Shoulder-Left Description: Aching, Sharp Duration Amount of Time: 2 Duration Units: Weeks Frequency: Continuous Intervention: Medication Patient presents with: New Patient: left shoulder pain, calcium deposit Pt. had recent xray by Dr. Wright. He has had pain x 2 weeks and has been taking ibuprofen 800 mg three times daily, without relief. Kermit High DO 04/02/2018 4:32 PM Signed Patient presents with: New Patient: left shoulder pain, calcium deposit HPI: Justus is a 52 year old male who presents for evaluation of shoulder pain for 2 weeks. The pain was the result of no specific injury. The location is along the lateral aspect of the shoulder, with radiation to the mid brachium. The pain is described as a sharp pain, intensity is 5/10 at its worse. The pain is intermittant in nature. The pain is relieved with rest, and aggravated with reaching, lifting and overhead movements. The pain wakes the patient at night. Over the counter NSAIDs do not improve the symptoms. Previous treatments include NSAIDS. Previous studies include X-ray. MEDICATIONS: Current Outpatient Prescriptions on File Prior to Visit: losartan-hydrochlorothiazide (HYZAAR) 100-25 mg per tablet Take 1 tablet by mouth once daily. amLODIPine (NORVASC) 10 mg tablet TAKE 1 TABLET BY MOUTH ONCE DAILY. aspirin, enteric coated (ASPIR-LOW) 81 mg EC tablet Take 1 tablet by mouth twice daily for [address] (PROTONIX) 20 mg tablet Take 1 tablet by mouth once daily for 14 days. COMPOUNDED PRESCRIPTION CPAP/BIPAP MASK A7034 CUSHION FOR NASAL APAP A7032 DISPOSABLE FILTER/APAP A7038 CPAP TUBING WHEATING ELEMENT A4604 HEADGEAR USED W/CPAP/BIPAP A7035 COMPOUNDED PRESCRIPTION CPAP @ 9 cm of water w/humidification. Mask ( medium ResMed Browning FX nasal pillows) optional chin strap (if indicated) , filters, tubing, humidifier and lifetime supplies docusate sodium (COLACE) 100 mg capsule Take 1 capsule by mouth twice daily. (Patient not taking: Reported on 04/02/2018 ) mupirocin (BACTROBAN) 2 % ointment Please apply 0.5 inches to the inside of each nostril with a Q-tip two times a day for the 5 consecutive days prior to surgery. (Patient not taking: Reported on 04/02/2018 ) naltrexone-bupropion (CONTRAVE) 8-90 mg TbER 1 po qam for 1 wk; then 1 po BID for 1 wk; then 2 po qam and 1 every afternoon for 1 wk; then 2 po BID No current facility-administered medications on file prior to visit. ALLERGIES: Patient has no known allergies. HISTORIES: PAST MEDICAL HISTORY Diagnosis Date - Essential hypertension 09/15/2016 - HTN (hypertension) - Hyperlipidemia LDL goal <100 09/15/2016 - Situational depression 09/15/2016 - Skin cancer of face 09/06/10 Invasive SCC left lateral cheek PAST SURGICAL HISTORY Procedure Laterality Date - COLONOSCOP W/ OR W/O BRS SPEC 06/10/2004 Colonoscopy - COLONOSCOP W/ OR W/O BRSH SPEC 04/08/10 Normal - EGD W/O BRSH SPECIMEN W/BX 04/08/10 Mild antral gastritis - EGD W/O OR W/BRUSH/WASH 06/10/2004 EGD - KNEE SCOPE,DIAGNOSTIC 1982 right Arthroscopy, knee - MAL LESION FACE,EAR,EYEL <5MM 09/06/10 Exc. left cheek skin lesion/ablate skin tags axilla bilaterally - PAST SURGICAL HISTORY OF 1997 knee surgery - SHAV SKIN LES <5MM FACE,FACIAL 04/01/14 Shave bx right infraorbit - SIMP REPAIR SCALP,NECK,TRK <2.5CM 10/25/12 Right thumb lac repair Social History Marital status: Spouse name: Years of education: Number of children: Social History Main Topics Smoking status: Never Smoker Smokeless tobacco: Never Used Alcohol use: Yes Comment: Occasional Drug use: No PE: General: Well-appearing male in no acute distress. Skin: Intact to inspection and palpation. Psychiatric: Mood and affect appropriate. A and O x3. Musculoskeletal Exam: Gait and Station normal. Cervical spine: Normal ROM and normal to palpation. Bilateral upper extremities show equal motion of the elbows, and wrists. Left shoulder exam shows active forward flexion to 160, abduction to 160, IR to belt line, ER adduction was 60. Positive for Hawkin's and Neer's tests. Rotator cuff strength 5/5. Normal stability to testing. Normal tone. No pain to palpation of the AC joint. No pain to palpation of the bicipital groove. Neurologic Exam: Intact sensation and reflexes in both upper extremities. Vascular: 2+ radial pulses, both upper extremities. IMPRESSION: Left shoulder subacromial bursitis with calcification. RECOMMENDATIONS: I recommend Continuing with home exercises for shoulder rehabilitation and range of motion The risk, benefits and alternatives of injection and no injection therapy were discussed. Personnel were discussed and the patient consented for an injection. The patient has been identified by name and birthdate. The injection site was identified, marked and prepped with a alcohol swab. Time out completed. The subacromial space was injected with a 25 gauge needle with 1cc Celestone (6 mg), 2cc xylocaine plain 1% and 2cc marcaine plain 0.5%. The injection site was then dressed with a bandaid. The patient tolerated the injection well. The patient was instructed to call the office if any adverse local effects occurred or any if any questions or concerns arise. Kermit High DO Referring Provider: SELF [[id number]] Allergies As of Date: 04/02/2018 (No Known Allergies) Date Reviewed: 04/02/2018 Reviewed by: Vanessa Pond RN - Fully Assessed Reason for Visit: New Patient [172] Cmt: left shoulder pain, calcium deposit Primary Visit Diagnosis:Subacromial impingement of left shoulder [M75.42] Order(s):[] betamethasone acetate-betamethasone sodium phosphate 6 mg injection (CELESTONE)Disp: Rfl: Prescriptions as of 04/02/2018 Sig: LOSARTAN 100 MG-HYDROCHLOROTH* Take 1 tablet by mouth once d* AMLODIPINE 10 MG TABLET TAKE 1 TABLET BY MOUTH ONCE D* ASPIRIN 81 MG TABLET,DELAYED * Take 1 tablet by mouth twice * PANTOPRAZOLE 20 MG TABLET,DEL* Take 1 tablet by mouth once d* COMPOUNDED PRESCRIPTION CPAP/BIPAP MASK A7034 CUSH* COMPOUNDED PRESCRIPTION CPAP @ 9 cm of water w/humidi* DOCUSATE SODIUM 100 MG CAPSULE Take 1 capsule by mouth twice* Patient not taking: Reported on 04/02/2018 MUPIROCIN 2 % TOPICAL OINTMENT Please apply 0.5 inches to th* Patient not taking: Reported on 04/02/2018 NALTREXONE 8 MG-BUPROPION 90 * 1 po qam for 1 wk; then 1 po * Medication notes this encounter ASPIRIN 81 MG TABLET,DELAYED RELEASE >> Vanessa Pond RN 04/02/2018 3:59 PM >> VANESSA POND RN Apr 02, 2018 3:59 PM occasionally PANTOPRAZOLE 20 MG TABLET,DELAYED RELEASE >> Vanessa Pond RN 04/02/2018 4:00 PM >> VANESSA POND RN lai Apr 02, 2018 4:00 PM as needed Problem List As Of Date 04/02/2018 Noted Resolved Pain in testis [N50.819] INVALID FOR*09/15/2016 Family history of colon cancer [Z80.0] INVALID FOR* Esophageal reflux [K21.9] INVALID FOR* Acute gastritis without mention of hemorrhage [*INVALID FOR*09/15/2016 ABDON (obstructive sleep apnea) [G47.33] INVALID FOR* Tendinopathy of left gluteus medius [M67.952] INVALID FOR*03/22/2017 Essential hypertension [I10] INVALID FOR* Morbid obesity due to excess calories (HCC) [E6*INVALID FOR* Situational depression [F43.21] INVALID FOR*03/22/2017 Hyperlipidemia LDL goal <100 [E78.5] INVALID FOR* Primary osteoarthritis of left knee [M17.12] INVALID FOR*11/30/2017 More... Obesity, Class III, BMI >= 40 [E66.01] INVALID FOR* S/P total knee arthroplasty [Z96.659] INVALID FOR*11/30/2017 Other tear of medial meniscus, current injury, *INVALID FOR* Other meniscus derangements, unspecified medial*INVALID FOR* Benign colon polyp [K63.5] INVALID FOR* Prescriptions ordered this encounter Disp Refills Start End BETAMETHASONE ACETATE AND SODIUM ANDERS* 04/02/2018 04/02/2018 Route: OTHER Encounter Status:Closed by KERMIT HIGH DO, V on 04/02/18 COMPREHENSIVE METABOLIC Collected: 03/19/2018 Status: F Source: [place] 7:53 AM [facility] [place] [place] REPOSITORY TYPE CODE TESTS RESULT OUT OF RANGE REFERENCE UNITS LAB L501.0100 74-106 mg/dL Normal GLU 97 Result Comment: Please note revised GLUCOSE reference range effective 2017. LAB L501.1000 7-18 mg/dL Normal BUN 14 LAB L501.1100 0.70-1.30 mg/dL Normal CREAT,SERUM 0.76 Result Comment: The validity of the calculated GFR AND GFRAA in patients over 70 years has not been determined. Clinical correlation is essential. LAB L501.1110 >60 mL/min Normal EST GFR 115 Result Comment: Non- GFR Calc LAB L501.1115 >60 mL/min Normal EST GFR - AA 139 Result Comment: GFR Calc LAB L501.1300 10-20 RATIO Normal BUN/CRE 18.5 LAB L501.1500 6.4-8.2 g/dL T Normal PROT 6.8 LAB L501.1800 3.2-5.0 g/dL Normal ALB 3.4 LAB L501.1950 2.2-4.2 g/dL Normal GLOB 3.4 LAB L501.2000 0.9-2.4 RATIO Normal A/G 1.0 LAB L501.2200 8.5-10.1 mg/dL CA Normal 8.6 LAB L501.4100 15-37 U/L Normal AST 21 LAB L501.4305 45-117 U/L Normal ALK P 84 LAB L501.4405 16-61 U/L Normal ALT 41 LAB L501.4600 0.20-1.00 mg/dL T Normal BILI 0.40 LAB L501.5300 136-145 mmol/L NA Normal 143 LAB L501.5600 3.5-5.1 mmol/L K Normal 3.5 LAB L501.5900 98-107 mmol/L CL Normal 104 LAB L501.6100 21.0-32.0 mmol/L Normal CO2 31.0 LAB L501.6200 5-15 Normal GAP 8 Performed By: #### L500.4050, L500.4100 #### [facility] [address] [place], [place], [address] LIPID PROFILE Collected: 03/19/2018 Status: F Source: [place] 7:53 AM [facility] REPOSITORY TYPE CODE TESTS RESULT OUT OF RANGE REFERENCE UNITS LAB L501.4900 200 mg/dL Normal CHOL 190 Result Comment: <200 mg/dL Desirable 200-240 mg/dL Borderline >240 mg/dL High Risk LAB L501.5000 mg/dL Normal TRIG 120 Result Comment: The drugs N-Acetylcysteine and Metamizole may falsely depress this assay. Serum Triglycerides Reference Interval Normal <150 mg/dL Borderline high 150 - 199 mg/dL High 200 - 499 mg/dL Very High > or = 500 mg/dL LAB L501.6400 mg/dL Low HDL 39 Result Comment: The drugs N-Acetylcysteine and Metamizole may falsely depress this assay. Reference Range HDL <40 mg/dL Low HDL Cholesterol HDL >or= 60 mg/dL High HDL Cholesterol LAB L501.6500 0-130 mg/dL Normal LDL 127 LAB L501.6600 5-40 mg/dL Normal VLDL 24 Performed By: #### L500.4050, L500.4100 #### [facility] [address] [place], [place], [address] PROGRESS Observed: 03/05/2018 Status: COMPLETED Source: [place] 3:45 PM [facility] ID: [id number] Author: Avtar Bunch (Pa) Service: (none) Author Type: Physician Manager Advertising Type: Progress Notes Filed: 03/06/2018 7:55 AM Note Text: Ortho Knee Follow Up Note Narrative Referring Provider: Avtar Bunch PA-C [id number] [facility] [place] [place] [address] PCP: Elias Gibbs III MD IMPRESSION/PLAN: 52 year old male s/p left knee uni completed on 11/30/2017. IMPRESSION: No complaints or limitations PLAN: No new treatment indicated: Routine follow-up with x-rays. Patient Reassurance: Patient reassured and supported. All questions answered. Follow up 1 year X-Rays Needed Justus Erickson III presents today for a 3 month visit ACTIVE PROBLEM LIST Family History of Colon Cancer Esophageal Reflux Abdon (Obstructive Sleep Apnea) Essential Hypertension Morbid Obesity Due to Excess Calories (Hcc) Hyperlipidemia Ldl Goal <100 Obesity, Class III, BMI >= 40 Other Tear of Medial Meniscus, Current Injury, Left Knee, Initial Encounter Other Meniscus Derangements, Unspecified Medial Meniscus, Left Knee Benign Colon Polyp Status post op: Left unicompartmental arthroplasty BMI: There is no height or weight on file to calculate BMI. Post-operative recovery was complicated by uneventful/none. Patient rates his condition as improving. Does the patient still experience pain? Yes 4/10 Post Op discharge patient location: in home. Functional Assessment is as follows: completed course of therapy. Functional difficulties: None. Pain Medication: None Currently Ambulating with: no ambulation aides EXAM: POST OP KNEE Left Post-Operative Knee Ambulates with a: normal gait. SKIN: Appropriate postop appearance and Incision well healed. Range of motion is 0 degrees in extension and 120 degrees of flexion. Extension La degrees Pain with ROM:No There is None effusion. Mal-alignment: No Tender to the palpation of None Neurovascular Status: Sensation Intact and Moves foot and ankle up AND down Stability:Anterior/Posterior- Yes, stable and Varus/Valgus- Yes, stable Quad strength: normal Imagin. None today. Provider: Avtar Bunch PA-C CNOV Observed: 03/05/2018 Status: COMPLETED Source: [place] 3:30 PM [facility] REPOSITORY Office Visit ([place]) JUSTUS ERICKSON III ([id number]) 1965 [facility] Date Time Provider Department 03/05/18 3:30 PM AVTAR BUNCH (PA) During your visit today, we recorded the following information about you: Blood pressure 152/82 Avtar Bunch PA-C 03/06/2018 7:55 AM Signed Ortho Knee Follow Up Note Narrative Referring Provider: Avtar Bunch PA-C [id number] [facility] [address] PCP: Elias Gibbs III MD IMPRESSION/PLAN: 52 year old male s/p left knee uni completed on 11/30/2017. IMPRESSION: No complaints or limitations PLAN: No new treatment indicated: Routine follow-up with x-rays. Patient Reassurance: Patient reassured and supported. All questions answered. Follow up 1 year X-Rays Needed Justus Erickson III presents today for a 3 month visit ACTIVE PROBLEM LIST Family History of Colon Cancer Esophageal Reflux Abdon (Obstructive Sleep Apnea) Essential Hypertension Morbid Obesity Due to Excess Calories (Hcc) Hyperlipidemia Ldl Goal <100 Obesity, Class III, BMI >= 40 Other Tear of Medial Meniscus, Current Injury, Left Knee, Initial Encounter Other Meniscus Derangements, Unspecified Medial Meniscus, Left Knee Benign Colon Polyp Status post op: Left unicompartmental arthroplasty BMI: There is no height or weight on file to calculate BMI. Post-operative recovery was complicated by uneventful/none. Patient rates his condition as improving. Does the patient still experience pain? Yes 10/02 Post Op discharge patient location: in home. Functional Assessment is as follows: completed course of therapy. Functional difficulties: None. Pain Medication: None Currently Ambulating with: no ambulation aides EXAM: POST OP KNEE Left Post-Operative Knee Ambulates with a: normal gait. SKIN: Appropriate postop appearance and Incision well healed. Range of motion is 0 degrees in extension and 120 degrees of flexion. Extension La degrees Pain with ROM:No There is None effusion. Mal-alignment: No Tender to the palpation of None Neurovascular Status: Sensation Intact and Moves foot and ankle up AND down Stability:Anterior/Posterior- Yes, stable and Varus/Valgus- Yes, stable Quad strength: normal Imagin. None today. Provider: Avtar Bunch PA-C Referring Provider: AVTAR BUNCH (ANABELL) [[id number]] Allergies As of Date: 03/05/2018 (No Known Allergies) Date Reviewed: 03/05/2018 Reviewed by: Kalpana Rosales (Alfonso) ALFONSO Solitario - Fully Assessed Reason for Visit: Follow Up [171] Cmt: Left UNI replacement 11/30/2017 Visit Diagnosis:Status post total knee replacement, unspecified laterality [Z96.659] Order(s):oxyCODONE IR (ROXICODONE) 5 mg immediate release tabletTake 1-2 tabs every 8 hours NEEDED for pain PATIENT IS STATUS POST MAJOR ORTHOPEDIC SURGERYDisp: 60 tabletRfl: 0 Prescriptions as of 03/05/2018 Sig: OXYCODONE 5 MG TABLET Take 1-2 tabs every 8 hours A* LOSARTAN 100 MG-HYDROCHLOROTH* Take 1 tablet by mouth once d* AMLODIPINE 10 MG TABLET TAKE 1 TABLET BY MOUTH ONCE D* DOCUSATE SODIUM 100 MG CAPSULE Take 1 capsule by mouth twice* ASPIRIN 81 MG TABLET,DELAYED * Take 1 tablet by mouth twice * PANTOPRAZOLE 20 MG TABLET,DEL* Take 1 tablet by mouth once d* MUPIROCIN 2 % TOPICAL OINTMENT Please apply 0.5 inches to th* COMPOUNDED PRESCRIPTION CPAP/BIPAP MASK A7034 CUSH* NALTREXONE 8 MG-BUPROPION 90 * 1 po qam for 1 wk; then 1 po * COMPOUNDED PRESCRIPTION CPAP @ 9 cm of water w/humidi* Problem List As Of Date 03/05/2018 Noted Resolved Pain in testis [N50.819] INVALID FOR*09/15/2016 Family history of colon cancer [Z80.0] INVALID FOR* Esophageal reflux [K21.9] INVALID FOR* Acute gastritis without mention of hemorrhage [*INVALID FOR*09/15/2016 ABDON (obstructive sleep apnea) [G47.33] INVALID FOR* Tendinopathy of left gluteus medius [M67.952] INVALID FOR*03/22/2017 Essential hypertension [I10] INVALID FOR* Morbid obesity due to excess calories (HCC) [E6*INVALID FOR* Situational depression [F43.21] INVALID FOR*03/22/2017 Hyperlipidemia LDL goal <100 [E78.5] INVALID FOR* Primary osteoarthritis of left knee [M17.12] INVALID FOR*11/30/2017 More... Obesity, Class III, BMI >= 40 [E66.01] INVALID FOR* S/P total knee arthroplasty [Z96.659] INVALID FOR*11/30/2017 Other tear of medial meniscus, current injury, *INVALID FOR* Other meniscus derangements, unspecified medial*INVALID FOR* Benign colon polyp [K63.5] INVALID FOR* Prescriptions ordered this encounter Disp Refills Start End OXYCODONE 5 MG TABLET 60 t* 0 03/05/2018 03/16/2018 Class: Print RX Sig: Take 1-2 tabs every 8 hours NEEDED for pain PATIENT IS STATUS POST MAJOR ORTHOPEDIC SURGERY Medications Discontinued During This Encounter oxyCODONE IR (ROXICODONE) 5 mg immed* 80 t* 0 12/18/2017 03/05/2018 Class: Print RX Sig: Take 1-2 tabs every 6-8 hours NEEDED for pain PATIENT IS STATUS POST MAJOR ORTHOPEDIC SURGERY Disc: Reason for discontinue is not on file. Encounter Status:Closed by AVTAR BUNCH PA-C on 03/06/18 PROGRESS Observed: 02/21/2018 Status: COMPLETED Source: [place] 5:10 PM [facility] [place] REPOSITORY HNO ID: [id number] Author: Elias Gibbs III Service: (none) Author Type: Physician Type: Progress Notes Filed: 02/21/2018 7:33 PM Note Text: SUBJECTIVE: This is a 52 year old male that is here today for 1. obesity--he would like to retry contrave and weight losing diet 2. s/p marta-replacement L knee-improving though he still feels pain at the end of his work day. He is taking less ibuprofen and only an occasional hydrocodone. 3. Hypertension. He does note that his blood pressure never goes below 135/90. He is willing to try a medication switch from lisinopril to losartan. He does not have cough. PAST MEDICAL HISTORY Diagnosis Date - Essential hypertension 09/15/2016 - HTN (hypertension) - Hyperlipidemia LDL goal <100 09/15/2016 - Situational depression 09/15/2016 - Skin cancer of face 09/06/10 Invasive SCC left lateral cheek Current Outpatient Prescriptions on File Prior to Visit: amLODIPine (NORVASC) 10 mg tablet TAKE 1 TABLET BY MOUTH ONCE DAILY. docusate sodium (COLACE) 100 mg capsule Take 1 capsule by mouth twice daily. mupirocin (BACTROBAN) 2 % ointment Please apply 0.5 inches to the inside of each nostril with a Q-tip two times a day for the 5 consecutive days prior to surgery. lisinopril-hydrochlorothiazide (PRINZIDE,ZESTORETIC) 20-12.5 mg per tablet Take 2 tablets by mouth once daily. COMPOUNDED PRESCRIPTION CPAP/BIPAP MASK A7034 CUSHION FOR NASAL APAP A7032 DISPOSABLE FILTER/APAP A7038 CPAP TUBING WHEATING ELEMENT A4604 HEADGEAR USED W/CPAP/BIPAP A7035 naltrexone-bupropion (CONTRAVE) 8-90 mg TbER 1 po qam for 1 wk; then 1 po BID for 1 wk; then 2 po qam and 1 every afternoon for 1 wk; then 2 po BID COMPOUNDED PRESCRIPTION CPAP @ 9 cm of water w/humidification. Mask ( medium ResMed Browning FX nasal pillows) optional chin strap (if indicated) , filters, tubing, humidifier and lifetime supplies aspirin, enteric coated (ASPIR-LOW) 81 mg EC tablet Take 1 tablet by mouth twice daily for [address] (PROTONIX) 20 mg tablet Take 1 tablet by mouth once daily for 14 days. No current facility-administered medications on file prior to visit. FAMILY HISTORY Problem Relation Age of Onset - Cancer Mother colon - other (corneal transplant x 2) Father Social History Substance Use Topics - Smoking status: Never Smoker - Smokeless tobacco: Never Used - Alcohol use Yes Comment: Occasional BP 140/86 Pulse 78 Resp 18 . OBJECTIVE: APPEARANCE Well appearing, alert, in no acute distress, well-hydrated, well nourished. and Morbidly obese NECK Supple, no adenopathy; thyroid symmetric, normal size, no bruits HEART RRR with normal S1 and S2, no murmurs, no gallops, no JVD appreciated LUNG clear to auscultation ABDOMEN soft, non-tender, non-distended, without organomegaly or palpable masses, no tenderness to palpation EXTREMITIES well-healing scar left anterior knee. Large lower legs with knee-high support hose ASSESSMENT: Morbid obesity Hypertension?just at goal Recent left knee hemiarthroplasty?doing well History of colon polyps?benign PLAN: healthy weight losing diet and regular exercise eat less sugar, bread, potato, pasta, rice, corn, corn syrup, saturated fats switch from lisinopril-hct to losartan-hct 100mg-25mg daily restart contrave in follow-up in weight and blood pressure in one month TRISTIAN Suggs MD, III MD CNOV Observed: 02/21/2018 Status: COMPLETED Source: [place] 4:00 PM [facility] REPOSITORY Office Visit (FAMPWS) JUSTUS ERICKSON III ([id number]) 1965 [facility] Date Time Provider Department 02/21/18 4:00 PM ELIAS GIBBS III During your visit today, we recorded the following information about you: Pulse Respiration Blood pressure 78/minute 18/minute 140/86 Elias Gibbs III MD 02/21/2018 7:33 PM Signed SUBJECTIVE: This is a 52 year old male that is here today for 1. obesity--he would like to retry contrave and weight losing diet 2. s/p marta-replacement L knee-improving though he still feels pain at the end of his work day. He is taking less ibuprofen and only an occasional hydrocodone. 3. Hypertension. He does note that his blood pressure never goes below 135/90. He is willing to try a medication switch from lisinopril to losartan. He does not have cough. PAST MEDICAL HISTORY Diagnosis Date - Essential hypertension 09/15/2016 - HTN (hypertension) - Hyperlipidemia LDL goal <100 09/15/2016 - Situational depression 09/15/2016 - Skin cancer of face 09/06/10 Invasive SCC left lateral cheek Current Outpatient Prescriptions on File Prior to Visit: amLODIPine (NORVASC) 10 mg tablet TAKE 1 TABLET BY MOUTH ONCE DAILY. docusate sodium (COLACE) 100 mg capsule Take 1 capsule by mouth twice daily. mupirocin (BACTROBAN) 2 % ointment Please apply 0.5 inches to the inside of each nostril with a Q-tip two times a day for the 5 consecutive days prior to surgery. lisinopril-hydrochlorothiazide (PRINZIDE,ZESTORETIC) 20-12.5 mg per tablet Take 2 tablets by mouth once daily. COMPOUNDED PRESCRIPTION CPAP/BIPAP MASK A7034 CUSHION FOR NASAL APAP A7032 DISPOSABLE FILTER/APAP A7038 CPAP TUBING WHEATING ELEMENT A4604 HEADGEAR USED W/CPAP/BIPAP A7035 naltrexone-bupropion (CONTRAVE) 8-90 mg TbER 1 po qam for 1 wk; then 1 po BID for 1 wk; then 2 po qam and 1 every afternoon for 1 wk; then 2 po BID COMPOUNDED PRESCRIPTION CPAP @ 9 cm of water w/humidification. Mask ( medium ResMed Browning FX nasal pillows) optional chin strap (if indicated) , filters, tubing, humidifier and lifetime supplies aspirin, enteric coated (ASPIR-LOW) 81 mg EC tablet Take 1 tablet by mouth twice daily for [address] (PROTONIX) 20 mg tablet Take 1 tablet by mouth once daily for 14 days. No current facility-administered medications on file prior to visit. FAMILY HISTORY Problem Relation Age of Onset - Cancer Mother colon - other (corneal transplant x 2) Father Social History Substance Use Topics - Smoking status: Never Smoker - Smokeless tobacco: Never Used - Alcohol use Yes Comment: Occasional BP 140/86 Pulse 78 Resp 18 . OBJECTIVE: APPEARANCE Well appearing, alert, in no acute distress, well- hydrated, well nourished. and Morbidly obese NECK Supple, no adenopathy; thyroid symmetric, normal size, no bruits HEART RRR with normal S1 and S2, no murmurs, no gallops, no JVD appreciated LUNG clear to auscultation ABDOMEN soft, non-tender, non-distended, without organomegaly or palpable masses, no tenderness to palpation EXTREMITIES well-healing scar left anterior knee. Large lower legs with knee-high support hose ASSESSMENT: Morbid obesity Hypertension?just at goal Recent left knee hemiarthroplasty?doing well History of colon polyps?benign PLAN: healthy weight losing diet and regular exercise eat less sugar, bread, potato, pasta, rice, corn, corn syrup, saturated fats switch from lisinopril-hct to losartan-hct 100mg-25mg daily restart contrave in follow-up in weight and blood pressure in one month TRISTIAN Suggs MD, III MD Frank A Cebul, III MD 02/21/2018 5:24 PM Signed PLAN: healthy weight losing diet and regular exercise eat less sugar, bread, potato, pasta, rice, corn, corn syrup, saturated fats switch from lisinopril-hct to losartan-hct 100mg-25mg daily restart contrave Elias Gibbs III MD Referring Provider: ELIAS GIBBS III [[id number]] Allergies As of Date: 02/21/2018 (No Known Allergies) Date Reviewed: 02/21/2018 Reviewed by: Juliana ([facility]) ASHANTI Gaxiola - Fully Assessed Reason for Visit: Routine check up [Other] Primary Visit Diagnosis:Essential hypertension [I10] Other Visit Diagnoses:Morbid obesity due to excess calories (HCC) [E66.01] ABDON (obstructive sleep apnea) [G47.33] Benign colon polyp [K63.5] Order(s):losartan-hydrochlorothiazide (HYZAAR) 100-25 mg per tabletTake 1 tablet by mouth once daily.Disp: 30 tabletRfl: 11 CPAP DEVICE, WITH HUMIDIFIER [[id number]] Order #: [id number] Prescriptions as of 02/21/2018 Sig: AMLODIPINE 10 MG TABLET TAKE 1 TABLET BY MOUTH ONCE D* DOCUSATE SODIUM 100 MG CAPSULE Take 1 capsule by mouth twice* MUPIROCIN 2 % TOPICAL OINTMENT Please apply 0.5 inches to th* COMPOUNDED PRESCRIPTION CPAP/BIPAP MASK A7034 CUSH* NALTREXONE 8 MG-BUPROPION 90 * 1 po qam for 1 wk; then 1 po * COMPOUNDED PRESCRIPTION CPAP @ 9 cm of water w/humidi* LOSARTAN 100 MG-HYDROCHLOROTH* Take 1 tablet by mouth once d* ASPIRIN 81 MG TABLET,DELAYED * Take 1 tablet by mouth twice * PANTOPRAZOLE 20 MG TABLET,DEL* Take 1 tablet by mouth once d* Problem List As Of Date 02/21/2018 Noted Resolved Pain in testis [N50.819] INVALID FOR*09/15/2016 Family history of colon cancer [Z80.0] INVALID FOR* Esophageal reflux [K21.9] INVALID FOR* Acute gastritis without mention of hemorrhage [*INVALID FOR*09/15/2016 ABDON (obstructive sleep apnea) [G47.33] INVALID FOR* Tendinopathy of left gluteus medius [M67.952] INVALID FOR*03/22/2017 Essential hypertension [I10] INVALID FOR* Morbid obesity due to excess calories (HCC) [E6*INVALID FOR* Situational depression [F43.21] INVALID FOR*03/22/2017 Hyperlipidemia LDL goal <100 [E78.5] INVALID FOR* Primary osteoarthritis of left knee [M17.12] INVALID FOR*11/30/2017 More... Obesity, Class III, BMI >= 40 [E66.01] INVALID FOR* S/P total knee arthroplasty [Z96.659] INVALID FOR*11/30/2017 Other tear of medial meniscus, current injury, *INVALID FOR* Other meniscus derangements, unspecified medial*INVALID FOR* Benign colon polyp [K63.5] INVALID FOR* Other instructions from your clinician: PLAN: healthy weight losing diet and regular exercise eat less sugar, bread, potato, pasta, rice, corn, corn syrup, saturated fats switch from lisinopril-hct to losartan-hct 100mg-25mg daily restart robyn Gibbs III MD Prescriptions ordered this encounter Disp Refills Start End LOSARTAN 100 MG-HYDROCHLOROTHIAZIDE * 30 t* 11 02/21/2018 Route: ORAL Sig: Take 1 tablet by mouth once daily. Medications Discontinued During This Encounter lisinopril-hydrochlorothiazide (PRIN* 180 * 3 05/10/2017 02/21/2018 Route: ORAL Sig: Take 2 tablets by mouth once daily. Disc: Clinical Decision Encounter Status:Closed by ELIAS GIBBS III, MD on 02/21/18 CNOV Observed: 12/18/2017 Status: COMPLETED Source: [place] 12:00 PM [facility] REPOSITORY Office Visit (ORAVON) JUSTUS ERICKSON III ([id number]) 1965 [facility] Date Time Provider Department 12/18/17 12:00 PM AVTAR BUNCH (PA) During your visit today, we recorded the following information about you: Avtar Bunch PA-C 12/18/2017 11:38 AM Signed Ortho Knee Follow Up Note Narrative Referring Provider: Avtar Bunch PA-C [id number] [facility] [address] PCP: Elias Gibbs III MD IMPRESSION/PLAN: 52 year old male s/p left knee unicompartmental arthroplasty completed on November 30, 2017. IMPRESSION: Excellent early outcome PLAN: Continue therapy as per prior. Patient is doing remarkably well. Patient Reassurance: Patient reassured and supported. All questions answered. Follow up 3 months No X-Rays Needed Justus Erickson III presents today for a a routine 1st post- op visit ACTIVE PROBLEM LIST Family History of Colon Cancer Esophageal Reflux Abdon (Obstructive Sleep Apnea) Essential Hypertension Morbid Obesity Due to Excess Calories (Hcc) Hyperlipidemia Ldl Goal <100 Obesity, Class III, BMI >= 40 Status post op: Left unicompartmental arthroplasty BMI: There is no height or weight on file to calculate BMI. Post-operative recovery was complicated by uneventful/none. Patient rates his condition as improving. Post Op discharge patient location: in home. Functional Assessment is as follows: has already started outpatient PT as of this visit. Functional difficulties: None. Pain Medication: Narcotic Currently Ambulating with: no ambulation aides EXAM: POST OP KNEE Left Post-Operative Knee Ambulates with a: normal gait. SKIN: Appropriate postop appearance. Range of motion is 0 degrees in extension and 115 degrees of flexion. Extension La degrees Pain with ROM:Yes There is Mild effusion. Mal-alignment: No Tender to the palpation of Medial femoral condyle and Medial joint line Neurovascular Status: Sensation Intact and Moves foot and ankle up AND down Stability:Anterior/Posterior- Yes, stable and Varus/Valgus- Yes, stable Quad strength: normal Imagin. There is no evidence of loosening. Provider: Avtar Bunch PA-C Completed by: Avtar Bunch PA-C Referring Provider: AVTAR BUNCH (ANABELL) [[id number]] Allergies As of Date: 12/18/2017 (No Known Allergies) Date Reviewed: 11/30/2017 Reviewed by: Jama (Rn) ALFONSO Valles - Fully Assessed Primary Visit Diagnosis:Primary osteoarthritis of left knee [M17.12] Other Visit Diagnosis:Status post total knee replacement, unspecified laterality [Z96.659] Order(s):oxyCODONE IR (ROXICODONE) 5 mg immediate release tabletTake 1-2 tabs every 6-8 hours NEEDED for pain PATIENT IS STATUS POST MAJOR ORTHOPEDIC SURGERYDisp: 80 tabletRfl: 0 Prescriptions as of 12/18/2017 Sig: OXYCODONE 5 MG TABLET Take 1-2 tabs every 6- 8 hours* DOCUSATE SODIUM 100 MG CAPSULE Take 1 capsule by mouth twice* ASPIRIN 81 MG TABLET,DELAYED * Take 1 tablet by mouth twice * PANTOPRAZOLE 20 MG TABLET,DEL* Take 1 tablet by mouth once d* MUPIROCIN 2 % TOPICAL OINTMENT Please apply 0.5 inches to th* AMLODIPINE 10 MG TABLET TAKE 1 TABLET BY MOUTH ONCE D* LISINOPRIL 20 MG-HYDROCHLOROT* Take 2 tablets by mouth once * COMPOUNDED PRESCRIPTION CPAP/BIPAP MASK A7034 CUSH* NALTREXONE 8 MG-BUPROPION 90 * 1 po qam for 1 wk; then 1 po * Patient not taking: Reported on 11/08/2017 COMPOUNDED PRESCRIPTION CPAP @ 9 cm of water w/humidi* Problem List As Of Date 12/18/2017 Noted Resolved Pain in testis [N50.819] INVALID FOR*09/15/2016 Family history of colon cancer [Z80.0] INVALID FOR* Esophageal reflux [K21.9] INVALID FOR* Acute gastritis without mention of hemorrhage [*INVALID FOR*09/15/2016 ABDON (obstructive sleep apnea) [G47.33] INVALID FOR* Tendinopathy of left gluteus medius [M67.952] INVALID FOR*03/22/2017 Essential hypertension [I10] INVALID FOR* Morbid obesity due to excess calories (HCC) [E6*INVALID FOR* Situational depression [F43.21] INVALID FOR*03/22/2017 Hyperlipidemia LDL goal <100 [E78.5] INVALID FOR* Primary osteoarthritis of left knee [M17.12] INVALID FOR*11/30/2017 More... Obesity, Class III, BMI >= 40 [E66.01] INVALID FOR* S/P total knee arthroplasty [Z96.659] INVALID FOR*11/30/2017 Prescriptions ordered this encounter Disp Refills Start End OXYCODONE 5 MG TABLET 80 t* 0 12/18/2017 12/29/2017 Class: Print RX Sig: Take 1-2 tabs every 6-8 hours NEEDED for pain PATIENT IS STATUS POST MAJOR ORTHOPEDIC SURGERY Medications Discontinued During This Encounter oxyCODONE IR (ROXICODONE) 5 mg immed* 80 t* 0 11/29/2017 12/18/2017 Class: Print RX Cmt: Patient is s/p a major orthopedic surgery. They have received a prescription for more than 30 ME because of the anticipated pain following this procedure in the immediate postoperative period. Route: ORAL Sig: Take 1-2 tablets by mouth every 4 hours as needed for up to 14 days. Earliest Fill Date: 11/29/17 Disc: Reason for discontinue is not on file. Encounter Status:Closed by AVTAR BUNCH PA-C on 12/18/17 PROGRESS Observed: 12/18/2017 Status: COMPLETED Source: [place] 11:36 AM [facility] REPOSITORY O ID: [id number] Author: Avtar Bunch (Pa) Service: (none) Author Type: Physician Manager Advertising Type: Progress Notes Filed: 12/18/2017 11:38 AM Note Text: Ortho Knee Follow Up Note Narrative Referring Provider: Avtar Bunch PA-C [id number] [facility] [address] PCP: Elias Gibbs III MD IMPRESSION/PLAN: 52 year old male s/p left knee unicompartmental arthroplasty completed on November 30, 2017. IMPRESSION: Excellent early outcome PLAN: Continue therapy as per prior. Patient is doing remarkably well. Patient Reassurance: Patient reassured and supported. All questions answered. Follow up 3 months No X-Rays Needed Justus Erickson III presents today for a a routine 1st post- op visit ACTIVE PROBLEM LIST Family History of Colon Cancer Esophageal Reflux Abdon (Obstructive Sleep Apnea) Essential Hypertension Morbid Obesity Due to Excess Calories (Hcc) Hyperlipidemia Ldl Goal <100 Obesity, Class III, BMI >= 40 Status post op: Left unicompartmental arthroplasty BMI: There is no height or weight on file to calculate BMI. Post-operative recovery was complicated by uneventful/none. Patient rates his condition as improving. Post Op discharge patient location: in home. Functional Assessment is as follows: has already started outpatient PT as of this visit. Functional difficulties: None. Pain Medication: Narcotic Currently Ambulating with: no ambulation aides EXAM: POST OP KNEE Left Post-Operative Knee Ambulates with a: normal gait. SKIN: Appropriate postop appearance. Range of motion is 0 degrees in extension and 115 degrees of flexion. Extension La degrees Pain with ROM:Yes There is Mild effusion. Mal-alignment: No Tender to the palpation of Medial femoral condyle and Medial joint line Neurovascular Status: Sensation Intact and Moves foot and ankle up AND down Stability:Anterior/Posterior- Yes, stable and Varus/Valgus- Yes, stable Quad strength: normal Imagin. There is no evidence of loosening. Provider: Avtar Bunch PA-C Completed by: Avtar Bunch PA-C XR KNEE 3V AP/LAT/MERCHANT Observed: 12/18/2017 Status: F Source: [facility] 10:49 AM [facility] REPOSITORY * * *Final Report* * * DATE OF EXAM: Dec 18 2017 10:49AM AFR [id number] - XR KNEE 3V AP/LAT/MERCHANT LT / PROCEDURE REASON: Unilateral primary osteoarthritis, left knee * * * * Physician Interpretation * * * * EXAMINATION: XR KNEE 3V AP/LAT/MERCHANT LT HISTORY: POST OP FOLLOW UP Unilateral primary osteoarthritis, left knee . TECHNIQUE: XR KNEE 3V AP/LAT/MERCHANT LT Laterality: LEFT Number of different views (projections): 3 M: XB_1 COMPARISON: 10/02/2017 RESULT: Medial unicondylar arthroplasty has been performed since the previous examination. Components are intact and in expected position and alignment. Remainder of the joint spaces are preserved without change. There is no significant joint effusion. Incidental note is made of a right ACL reconstruction. No other significant abnormality. IMPRESSION: Normal left postoperative medial unicondylar arthroplasty. Manufacturing Engineering Director: AIME Transcribe Date/Time: Dec 18 2017 10:57A Dictated by : RACH GUERRA MD This examination was interpreted and the report reviewed and electronically signed by: RACH GUERRA MD on Dec 18 2017 10:58AM EST [id number] PROGRESS Observed: 12/18/2017 Status: COMPLETED Source: [place] 10:46 AM [facility] REPOSIT[facility] HNO ID: [id number] Author: Bert Conteh (Rt) Service: (none) Author Type: Fine Dining Server Type: Progress Notes Filed: 12/18/2017 10:47 AM Note Text: Radiology Service Progress Note PATIENT NAME: Justus Erickson III DATE OF SERVICE: December 18, 2017 TIME: 10:46 AM PATIENT IDENTITY VERIFICATION COMPLETED USING TWO (2) METHODS: Patient confirmed name verbally and Date of . PATIENT GENDER DATA: Male PATIENT RELEVANT IMPLANT DATA REVIEWED: Not Applicable RADIOLOGY DEPARTMENT: General X-ray: Exam(s) Completed: Lower Extremity X-Ray(s): Knee, AP / Lat / Merchant Left and Wt. Bearing: PERIPHERAL IV DATA: Not applicable SIGNED BY: RT Yady December 18, 2017 10:46 AM CONSULT Observed: 11/30/2017 Status: COMPLETED Source: [place] 4:45 PM [facility] REPOSITORY HNO ID: [id number] Author: Rhea Anderson Service: General Internal Medicine Author Type: Physician Type: Consults Filed: 11/30/2017 5:04 PM Note Text: CONSULT NOTE - INTERNAL MEDICINE PATIENT NAME: Justus Erickson III SERVICE DATE: 11/30/2017 SERVICE TIME: 4 PM ADMITTING PHYSICIAN: Meaghan Broussard CC: Postop medical management, patient is status post left uni-KR SUBJECTIVE / ROS: Patient denies any CP, SOB, Dizziness, Palpitations, Abdominal Pain, Nausea or Vomiting. His pain is controlled well He denies any recent cough, skin rash, Ear/ nose/ Eye complaints, urinary/bowel change He has been able to urinate since his surgery. He has been ambulating with therapy and is doing well. He complains of soreness in his throat since his surgery. PAST MEDICAL HISTORY Diagnosis Date - Essential hypertension 09/15/2016 - HTN (hypertension) - Hyperlipidemia LDL goal <100 09/15/2016 - Situational depression 09/15/2016 - Skin cancer of face 09/06/10 Invasive SCC left lateral cheek PAST SURGICAL HISTORY Procedure Laterality Date - COLONOSCOP W/ OR W/O BRSH SPEC 06/10/2004 Colonoscopy - COLONOSCOP W/ OR W/O BRSH SPEC 04/08/10 Normal - EGD W/O BRSH SPECIMEN W/BX 04/08/10 Mild antral gastritis - EGD W/O OR W/BRUSH/WASH 06/10/2004 EGD - KNEE SCOPE,DIAGNOSTIC 1982 right Arthroscopy, knee - MAL LESION FACE,EAR,EYEL <5MM 09/06/10 Exc. left cheek skin lesion/ablate skin tags axilla bilaterally - PAST SURGICAL HISTORY OF 1997 knee surgery - SHAV SKIN LES <5MM FACE,FACIAL 04/01/14 Shave bx right infraorbit - SIMP REPAIR SCALP,NECK,TRK <2.5CM 10/25/12 Right thumb lac repair Social History Substance Use Topics - Smoking status: Never Smoker - Smokeless tobacco: Never Used - Alcohol use Yes Comment: Occasional ALLERGIES No Known Allergies MEDICATIONS: No current facility-administered medications on file prior to encounter. Current Outpatient Prescriptions on File Prior to Encounter: lisinopril-hydrochlorothiazide (PRINZIDE,ZESTORETIC) 20-12.5 mg per tablet Take 2 tablets by mouth once daily. COMPOUNDED PRESCRIPTION CPAP/BIPAP MASK A7034 CUSHION FOR NASAL APAP A7032 DISPOSABLE FILTER/APAP A7038 CPAP TUBING WHEATING ELEMENT A4604 HEADGEAR USED W/CPAP/BIPAP A7035 naltrexone-bupropion (CONTRAVE) 8-90 mg TbER 1 po qam for 1 wk; then 1 po BID for 1 wk; then 2 po qam and 1 every afternoon for 1 wk; then 2 po BID (Patient not taking: Reported on 11/08/2017 ) COMPOUNDED PRESCRIPTION CPAP @ 9 cm of water w/humidification. Mask ( medium ResMed Browning FX nasal pillows) optional chin strap (if indicated) , filters, tubing, humidifier and lifetime supplies OBJECTIVE PHYSICAL EXAM: Patient Vitals for the past 24 hrs: BP Temp Temp src Pulse Resp SpO2 Height Weight 11/30/17 1400 - - - - - - 182.9 cm (6' 0.01) (!) 137 kg (302 lb 0.5 oz) 11/30/17 1200 138/86 36.3 ?C (97.4 ?F) Temporal Art 72 16 96 % - - 11/30/17 1130 122/81 - - 70 16 96 % - - 11/30/17 1115 125/84 36.3 ?C (97.3 ?F) Temporal Art 73 16 96 % - - 11/30/17 1100 130/84 - - 69 16 98 % - - 11/30/17 1053 122/78 - - 63 16 95 % - - 11/30/17 1048 128/83 - - 71 16 96 % - - 11/30/17 1035 125/76 - - 79 16 - - - 11/30/17 1028 122/79 36.4 ?C (97.5 ?F) Temporal Art 84 16 96 % - - 11/30/17 0735 125/91 - - 91 16 96 % - - 11/30/17 0730 144/99 - - 85 16 96 % - - 11/30/17 0637 144/82 36.7 ?C (98.1 ?F) Temporal Art 80 16 98 % - - Body mass index is 40.95 kg/m?. GENERAL: no distress. AANDOX3 HEENT: conjunctiva is pink, no icterus; m/m moist, no sinus tenderness NECK: no LN LUNGS: Lungs clear to auscultation, Fair air entry. CARDIAC: normal S1 and S2; no rub or gallops ABDOMEN: Abdomen soft, non-tender. BS normal. EXTREMETIES: Bilateral normal ankle DF Problem List ACTIVE PROBLEM LIST Family History of Colon Cancer Esophageal Reflux Abdon (Obstructive Sleep Apnea) Essential Hypertension Morbid Obesity Due to Excess Calories (Hcc) Hyperlipidemia Ldl Goal <100 Obesity, Class III, BMI >= 40 DATA: Diagnostic tests reviewed for today's visit: Most recent labs: CBC, Coags, BMP, Mg, Phos: No new labs Assessment/Plan: 1. Status post left uni-KR: His pain is controlled well. He is doing well with therapy. He has been cleared by therapy and orthopedic service also for discharge to home today area patient is comfortable with his plans for discharge. 2. Hypertension: I have discussed with patient regarding possibility of hypotension and to hold his medications as advised if any symptoms of dizziness were noted. 3. Obstructive sleep apnea: Continue CPAP. 4. Hyperlipidemia: Continue present management SIGNATURE: Rhea Anderson MD DATE: November 30, 2017 TIME: 4:59 PM NURSING PROG Observed: 11/30/2017 Status: COMPLETED Source: [place] 4:41 PM [facility] OTHER CAMPUS REPOSITORY HNO ID: [id number] Author: Jama Valles RN Service: Nursing Author Type: Registered Nurse Type: Nursing Progress Note Filed: 11/30/2017 4:42 PM Note Text: Nursing Progress Note Patient Name: Justus Erickson III Patient Location: [id number]- Cleared by medical dr. anderson PT, and Dr. Mcclellan. This note was completed by: Jama Valles RN CASE MANAGEM Observed: 11/30/2017 Status: COMPLETED Source: [place] 4:19 PM [facility] REPOSITORY HNO ID: [id number] Author: Mckenna Weinre (Sw) Service: Care Management Author Type: Sewer Contractor Type: Care Mgt Progress Note Filed: 11/30/2017 4:21 PM Note Text: CARE MANAGEMENT DISCHARGE NOTE SERVICE DATE: 11/30/2017 SERVICE TIME: 4:20pm LOS: 1 day Admission Date: 11/30/2017 DISCHARGE ARRANGEMENT (list agency and phone number) Home and Home care Provider: [facility] CAREGIVER ASSESSMENT: Caregiver is ready, willing and able to meet the patient's needs as recommended by the inter-professional team? No Caregiver Needed Patient's transition needs and plan for meeting these needs: Does the patient have an acute stroke diagnosis, or has the patient had a stroke during this admission? No HANDOFF COMMUNICATION: soc for hhc 12/01/09. 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 Anderson then discharged home w/ Home PT Discharge orders were reviewed, med reconciliation reviewed DISPO: Home with Home PT today I spent 15 minutes in the visit, with more than 50% of the total kwaj-[id number] time of the visit in counseling / coordination of care. SIGNATURE: Ryan Maza APRN.NICOLASA PATIENT NAME: Justus Erickson III DATE: November 30, 2017 TIME: 3:35 PM PAGER/CONTACT #: [phone] THERAPY NT Observed: 11/30/2017 Status: COMPLETED Source: [place] 2:43 PM CLINIC OTHER CAMPUS REPOSITORY HNO ID: [id number] Author: Lito Maldonado (PtLinda Vergara Service: Physical Therapy Author Type: Physical Therapist Type: Therapy (PT/OT/Speech/Resp) Filed: 11/30/2017 2:55 PM Note Text: Physical Therapy Evaluation LUCKR by Dr. Broussard SERVICE DATE: 11/30/2017 SERVICE TIME: 1320 to 1435 ROOM: [place] [id number] Recommended Discharge Disposition: Home PT Anticipated Discharge Needs: Equipment Recommended Discharge Equipment: Wheeled Walker PT Recommendations to Nursing: Ambulate with device;In halls;With assist of 1 person Device: Crutch(es);Wheeled Walker PT 6 Clicks Score: 23 Precautions/Activity Restrictions: Total Knee Replacement;Weight Bearing Restrictions Extremity With Weight Bearing Restricted: Left Lower Extremity Left Lower Extremity Weight Bearing Status: WBAT ASSESSMENT : Patient presents s/p L UCKR by Dr. Broussard on 11/30/17. Pt. performes bed mobility with MOD I and completes transfers and amb on level surfaces with SBA with either crutches or FWW. Pt. Owns crutches and plans on getting FWW. Pt. amb up/down 3 steps with 1 HR and 1 crutch withCGA. Pt. Was instructed in supine and seated TKR ex, car transfers, safety, and TKR precautions. Pt.'s will be available to A as needed. Recommend [facility] To progress ROM and strength of L knee and improve transfers and amb with least restrictive AD. Patient Disposition at Start of Session: Supine in Bed Patient Disposition at End of Session: Supine in Bed Tolerated Full Session Physical Therapy Problem List: Education Deficit;Pain;Decreased Activity Tolerance;Decreased Range Of Motion;Decreased Strength;Functional Mobility Impairment;Balance Impaired Patient /Caregiver Goals: Go Home Goals for Plan of Care: Transfer sit to/from stand with: Modified Independent Ambulate with: Modified Independent Distance: 250' Device: Crutch(es);Wheeled Walker Ambulate up and down steps with: Modified Independent Number of steps: 3 Device: Crutch(es);Rail ROM: 0-100 L knee Rehab Potential: Excellent PLAN: Treatment Frequency (times per week): BID Current admission Treatment Interventions: Education;Joint Mobility;Strengthening;Functional Mobility Training;Balance Training Plan of Care developed with: Patient;Caregiver TREATMENT INTERVENTIONS: Therapy Diagnosis: Difficulty walking-musculoskeletal Interventions Provided: Evaluation;Therapeutic Exercise (64506);Therapeutic Activity (38183);Gait Training (97388) $ Evaluation-Low (62210) Billed Units: 1 unit Therapeutic Exercise (34280) Treatment Minutes: 15 1 unit Skilled Intervention(s): Instruction in therapeutic exercise supine B LE ther ex 1 x 10: QS, AP, GS, SAQ, Hip ABD, SLR and seated LE there ex 1 x 10: LAQ, Seated knee flex, seated knee ext stretch Verbal and tactile cuing provided L LE Facilitation of muscle control, optimal recruitment and alignment L LE Therapeutic Activity (13601) Treatment Minutes: 25 2 units Skilled Intervention(s): Instructed patient in supine to and from sit pushing with upper extremities to sit up Instruction in sit to and from stand technique with proper hand placement and body positioning at edge of bed/chair Education with TKR precautions, car transfers, commode transfers, safety Gait Training (03230) Treatment Minutes: 15 1 unit Skilled Intervention(s): Instruction in sit to stand technique with proper hand placement and body positioning at edge of bed/chair, Instruction in stand to sit technique with LE's touching chair/bed and reaching back for surface, Instruction in sequencing, gait pattern, Instruction in correction of gait deviations, Instruction in WB precautions, Instruction in stair negotiation and Instruction in use of equipment, cues for sequence and pattern Pt. Was instructed in gait training on level surfaces with both FWW and them B axillary crutches. Pt. Was instructed in stair amb with 1 HR and 1 crutch. Total Timed Code Treatment Minutes: 55 Total Treatment Time (minutes): 70 FUNCTIONAL G CODE: PT 6 Clicks Score: 23 (11/30/17 1320) Mobility: Walking and Moving Around Current Status (G8978): CI (11/30/17 1320) Mobility: Walking and Moving Around Goal Status (G8979): CH (11/30/17 1320) Based on clinical assessment and the score on the 6 Clicks Functional Assessment Tool, the G code and corresponding severity modifiers are documented above. SUBJECTIVE: Current Hospital Course: Chart reviewed; Pt. was admitted to [facility] for elective L UCKR by Dr. Broussard on 11/30/17. Reason for Physical Therapy Consult : s/p L UCKR Relevant Past Medical History: GERD, ABDON, HTN, obesity Patient Report: Pt. agreeable to therapy. Pt. Asking about ex, when he can ride a bike and if he can walk with crutches. 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 Pt. Lives in a 2 level house but can stay on 1st floor. OBJECTIVE: CURRENT FUNCTIONAL STATUS: Current Functional Mobility Assist Level Additional Information Rolling Supine to Sit Modified Independent bedrail used Sit to Supine Modified Independent bedrail used Scooting Independent Sit to Stand Stand By Assistance Stand to Sit Stand By Assistance Bed to Chair Stand By Assistance Toilet/Commode Contact Guard Assistance Gait Stand By Assistance Gait Device: Crutch(es);Wheeled Walker Gait Distance (feet): 100' Stairs Contact Guard Assistance Stairs Device: Crutch(es);Rail Number of Stairs: 3 Curb Step Car Transfer (verbally reviewed wi Pt.) Gait Deviations Left Lower Extremity: Weight bearing decreased;Stance time decreased;Step length decreased Pt. amb 100' with FWW with SBA and then 50' with B axillary crutches with SBA. Pt. amb with a slow, steady, reciprocal gait wit heel to toe progression, Balance: Static Sitting;Dynamic Sitting;Static Standing;Dynamic Standing Static Sitting Balance: Independent Dynamic Sitting Balance: Independent Static Standing Balance: Supervision Dynamic Standing Balance: Stand By Assistance Please see discipline specific clinical documentation flowsheet for complete details for this therapy evaluation/treatment. SIGNATURE: Lito Vergara PT PATIENT NAME: Justus Erickson III DATE: November 30, 2017 TIME: 2:44 PM PAGER/CONTACT #: [phone] CASE MGT INIT Observed: 11/30/2017 Status: COMPLETED Source: [facility] 1:45 PM CLINIC OTHER CAMPUS REPOSITORY HNO ID: [id number] Author: Mckenna Weiner (Sw) Service: Care Management Author Type: Sewer Contractor Type: Care Mgt Initial Assessment Filed: 11/30/2017 1:48 PM Note Text: CARE MANAGEMENT: ASSESSMENT AND DISCHARGE PLAN SERVICE DATE: 11/30/2017 SERVICE TIME: 1:30pm PRIMARY CARE PHYSICIAN: Elias Gibbs III MD ADMISSION STATUS: Extended Recovery Needs Prior to Discharge: To Be Determined;Discharge Prescriptions;OT/PT Evaluation;Discharge Transportation 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 No Advance Directive: Current Advance Directive: Health Care Power of Leather Scraper In Chart: Yes Up To Date and Valid: Yes Health Literacy: 1. How often do you need to have someone help you when you read instructions, pamphlets, or other written material from your doctor or pharmacy? Never - 1 2. How confident are you filling out medical forms by yourself? Extremely - 1 If Patient scores > 3 on either question, the following interventions were put into place: Patient did not score > 3 FUNCTIONAL AND COGNITIVE/BEHAVIORAL PRIOR TO ADMISSION: Baseline Mental Status: Alert AND Oriented, Person, Place , Time and Situation Functional Status: Independent Does Patient Currently Receive Any Community Services or Home Care? None Equipment Prior to Admission: None Has the Patient Been in a Jail Facility in the Past 30 days? No SOCIAL: Living Arrangement: Home Lives With: Spouse Financial Resources: Employed: yes Primary Contact: Extended Emergency Contact Information Primary Emergency Contact: Anastacia Spear Address: [address] [place] [address] [place] [address] Mobile Relation: Spouse Supportive: Yes Other Important Patient Contacts: None Caregiver Assessment: Caregiver is ready, willing and able to meet the patient's needs as recommended by the inter-professional team? No Caregiver Needed Patient's transition needs and plan for meeting these needs: Does the patient have an acute stroke diagnosis, or has the patient had a stroke during this admission? No Medication Adherence: I am convinced of the importance of my prescription medication: Agree completely - 0 I worry that my prescription medication will do more harm than good to me Disagree completely - 0 I feel financially burdened by my [id number] expenses for my prescription medication: Disagree completely - 0 Patient is categorized as low risk < 2 Are you interested in bedside delivery of your medications? No Food Concerns: In the Last Month, Have You had Trouble Getting Food? No trouble getting food During the Last Month, Have You Worried Whether Your Food Would Run Out Before You Had Enough Money to Buy More? No Is the Patient Psychosocially Complex? No ASSESSMENT AND PLAN: Medical Needs: None Psychosocial Needs: None FREEDOM OF CHOICE EXPLAINED: Yes Justus Erickson Financial Disclosure Provided The patient and/or family has been given the Provider List: Yes Provider List: Home Care Preference: [facility] POTENTIAL TRANSITION PLANS [facility] OT/PT SIGNATURE: ÓSCAR Au PATIENT NAME: Justus Erickson III DATE: November 30, 2017 TIME: 1:45 PM PAGER/CONTACT #: LON POST Observed: 11/30/2017 Status: COMPLETED Source: [facility] 12:32 PM CLINIC OTHER CAMPUS REPOSITORY HNO ID: [id number] Author: Jr Ji Service: Anesthesiology Author Type: Anesthesiologist Type: Anesthesia PostOp Filed: 11/30/2017 12:32 PM Note Text: POST ANESTHESIA EVALUATION NOTE SERVICE DATE: 11/30/2017 SERVICE TIME: 12:32 PM : 1965 Vitals: 11/30/17 0637 11/30/17 1028 11/30/17 1115 11/30/17 1200 Temp: 36.7 ?C (98.1 ?F) 36.4 ?C (97.5 ?F) 36.3 ?C (97.3 ?F) 36.3 ?C (97.4 ?F) 11/30/17 1100 11/30/17 1115 11/30/17 1130 11/30/17 1200 BP: 130/84 125/84 122/81 138/86 11/30/17 1100 11/30/17 1115 11/30/17 1130 11/30/17 1200 Pulse: 69 73 70 72 11/30/17 1100 11/30/17 1115 11/30/17 1130 11/30/17 1200 Resp: 16 16 16 16 11/30/17 1100 11/30/17 1115 11/30/17 1130 11/30/17 1200 SpO2: 98% 96% 96% 96% Validated Vital Signs: Yes No apparent anesthetic complications. The patient is appropriately hydrated with stable respiratory and cardiovascular status. Patient has safe and adequate airway control. The patient has appropriate pain relief and no significant post operative nausea or vomiting. The patient has achieved baseline mental status. Further assessment by Anesthesia Service: None Other Remarks: SIGNATURE: Jr Ji MD PATIENT NAME: Justus Erickson III DATE: November 30, 2017 TIME: 12:32 PM PAGER/CONTACT #: [phone] NURSING PROG Observed: 11/30/2017 Status: COMPLETED Source: [place] 10:26 AM [facility] REPOSITORY HNO ID: [id number] Author: Sharon Maldonado (Rn) ALFONSO Smith Service: (none) Author Type: Registered Nurse Type: Nursing Progress Note Filed: 11/30/2017 10:29 AM Note Text: Discharge Status: Patient is Awakening, and is no airway issues. Skin condition was warm and pink. Transported to recovery room via bed with siderails up. Accompanied by director life insurance and [employer]/. OPERATIVE NO Observed: 11/30/2017 Status: COMPLETED Source: [place] 9:54 AM [facility] REPOSITORY HNO ID: [id number] Author: Meaghan Broussard Service: Orthopaedic Surgery Author Type: Physician Type: Operative Report Filed: 11/30/2017 9:59 AM Note Text: PATIENT NAME: Justus Erickson III LOG ID: [id number] Surgery Date: November 30, 2017 Surgeon(s) and Manager Advertising(s): Surgeon(s) and Role: * Meaghan Broussard - Primary * Marco Mata - Assisting There were no qualified residents available for this procedure. Please bill for Jace Mata as neurology physician assistant Procedure(s): Procedure(s) (LRB): ROBOTIC ASSISTED UNI KNEE ARTHROPLASTY (Left) NAVIGATION COMPUTER ASSISTED (Left) Anesthesia: Spinal Operative Time: Total operative time from wheels in to wheels out, including anesthesia time was * Missing case tracking time(s) * Incision Start: 8:15 AM Incision Stop: 10 AM Attestation: I was present for all of the critical portions of the operation and performed all critical portions. The resident/fellow/PA performed the closure under supervision, and assisted during the operation. I was immediately available for the duration of the entire case. Preop Diagnosis: Pre-Op Diagnosis Codes: Primary osteoarthritis of left knee [M17.12] Postop Diagnosis: Same as Pre-Op Diagnosis Codes: Primary osteoarthritis of left knee [M17.12] Findings: Medial compartment OA EBL: 150 cc Implants: Implant Name Type Inv. Item Serial No. Personal Care Aid Lot No. LRB No. Used CEMENT SIMPLEX P BONE RADIOPAQUE FULL DOSE - [id number] Cement / Putty CEMENT SIMPLEX P BONE RADIOPAQUE FULL DOSE DELFINO [id number] Left 1 BFG-TM-R-KIND IMPLANT - Rancho tibial baseplate Implant JRR-OO-C-KIND IMPLANT DELFINO [id number] Left 1 CAU-LH-C-KIND IMPLANT -Rancho femoral component Implant ZNW-SL-K-KIND IMPLANT DELFINO [id number] Left 1 ONC-GS-L-KIND IMPLANT -RANCHO tibial insert Implant KYW-RR-X-KIND IMPLANT DELFINO [id number] Left 1 Problem List: ACTIVE PROBLEM LIST Family History of Colon Cancer Esophageal Reflux Abdon (Obstructive Sleep Apnea) Essential Hypertension Morbid Obesity Due to Excess Calories (Hcc) Hyperlipidemia Ldl Goal <100 Primary Osteoarthritis of Left Knee Obesity, Class III, BMI >= 40 OPERATIVE INDICATIONS: The patient has a long history of progressive left knee pain, arthritis, and degeneration. They has developed deformity in the left knee from predominantly medial wear and bone loss. Non-operative treatment and Physical Therapy have been attempted on the left, but have not improved or controlled the symptoms and pain that occurs during normal daily activities. Knee motion has also become limited and is restricting the patient. Left uni vs. total knee arthroplasty was recommended. The risks, benefits and potential complications of the arthroplasty surgery were discussed with the patient in detail. Specific details of the surgical procedure, hospitalization, recovery, rehabilitation, and long-term precautions were also presented. Pre-operative teaching was provided. Implant/prosthesis selection was outlined, and the many options available were explained; the final choice will be made at the time of the procedure to match the anatomy and condition of the bone, ligaments, tendons, and muscles. The patient was seen by [facility] for pre-operative optimization, and risk assessment. Nancy-operative blood management and the potential for blood transfusion were discussed with risks and options clearly outlined. Understanding of all topics was conveyed to me by the patient pre-operatively, and patient consent was given to proceed with the left total knee replacement. OPERATIVE PROCEDURE: The patient was identified and brought into the Operating Room by the anesthesia and nursing teams. Anesthesia was successfully performed. The patient was then positioned supine on the operating room table, and all bony prominences were padded. Intravenous antibiotic prophylaxis dosing was confirmed. A tourniquet was applied to the left upper thigh. A full knee exam was done after anesthesia was in full effect. The left leg was prepped and draped in the usual sterile fashion. A surgical time-out was performed immediately preceding the incision with all personnel in the operating room; the patient identity was again confirmed, the left knee-surgical site and extremity were identified and confirmed, X-rays were reviewed, and availability of the appropriate surgical equipment was established. The left knee was exsanguinated and exposed using a limited anterior-midline skin incision. Dissection was carried down through skin and subcutaneous tissue to the extensor mechanism with a scalpel. A limited median para-patellar arthrotomy was made to enter the knee space sharply. A large amount of normal appearing joint fluid was encountered and suctioned. The synovium was thickened, hypertrophic, and inflamed. A partial synovectomy was performed for exposure, and the medial and lateral gutters were cleared of scar and synovial reflections. The superficial medial collateral ligament was carefully elevated off osteophytes which were then removed with a rongeur and osteotome. Degenerative meniscal remnants were excised medially. The patellar synovial reflections were released and the patella exposed to reveal normal articular surface. The trochlea demonstrated similar minimal wear. The patella was then subluxed laterally. The knee was then flexed up to 90 degrees. Assessment of the left knee joint revealed severe end-stage articular damage with no remaining medial weight bearing cartilage. The medial compartment was severely eburnated with bone loss on the posterior medial tibia and posterior medial femoral condyles, resulting in the varus deformity. The anterior cruciate ligament was found to be functional. Osteophytes were removed from the notch. Osteophytes were then further debrided from the femur and the tibia. Next the arrays were placed and the femur and tibia were mapped. Tension on ligaments was taken using the computer/robot. He had some hyperextension, so we took less tibia and more posterior femur to balacne the gaps. The robot was used to p[repare the femur and tibia. Trials were placed. The knee had now full extension with no hyperextension and excellent ROM. The knee remained in slight varus overlall (0.5-1 degree) so we did not overstuff the joint. All of the trials were then removed and the wound was copiously irrigated and then dried using pulsatile lavage. The components were then cemented in place first with the tibia with pressurization and negative pressure using the suction. We then pressurized the femur and impacted this in place using cement as well. We then placed the appropriate sized feeler gauge and allow the cement to harden and 20-30? of flexion. Once it hardened we removed the trial feeler gauge and inspected the knee for any loose or retained cement. We copiously irrigated out the wound again. We then placed the final polyethylene insert. Again a range of motion was undertaken revealing excellent stability throughout the range of motion and no evidence of meniscal bearing spin out. The wound was then copiously irrigated again and closed in multiple layers irrigated between each layer of closure. A sterile dressing was then applied and the patient was brought to the recovery room in stable condition. SPECIMEN SENT TO PATHOLOGY: Distal femoral bone fragments, proximal tibial joint surface, and synovium. PAIN COCKTAIL: 1/2% Naropin (ropivacaine)-20cc, 0.5 % Lidocaine with 1:200,000 epi-20cc, 2 mg duramorph- 4cc, Toradol 30mg -1cc = injection total volume 45cc. SIGNATURE: Meaghan Broussard MD DATE: November 30, 2017 TIME: 9:54 AM NURSING PROG Observed: 11/30/2017 Status: COMPLETED Source: [place] 7:43 AM [facility] REPOSITORY HNO ID: [id number] Author: Sharon Ngo) ALFONSO Smith Service: (none) Author Type: Registered Nurse Type: Nursing Progress Note Filed: 11/30/2017 8:30 AM Note Text: Body temperature maintained by maintaining OR room temperature between 68-72 degrees F, providing patient with warm bath blankets, limiting areas of exposure and providing warm irrigation fluid. NURSING PROG Observed: 11/30/2017 Status: COMPLETED Source: [place] 7:43 AM [facility] HNO ID: [id number] Author: Sharon Ngo) ALFONSO Smith Service: (none) Author Type: Registered Nurse Type: Nursing Progress Note Filed: 11/30/2017 8:31 AM Note Text: Patient transported to the OR via cart, accompanied by RN, MUNIR. Level of consciousness: Alert and Oriented x 3 Emotional Status:Calm Sensory Impairments: No Language Barrier: No Mobility Impairments: Yes, spinal in place. Assisted to OR table x 4. Addressed any patient concerns regarding consents, OR environment, and anesthetics. NURSING PROG Observed: 11/30/2017 Status: COMPLETED Source: [place] 7:09 AM [facility] HNO ID: [id number] Author: Natalee Ngo) ALFONSO Allison Service: (none) Author Type: Registered Nurse Type: Nursing Progress Note Filed: 11/30/2017 7:10 AM Note Text: Nursing Progress Note Patient Name: Justus Erickson III Patient Location: -OPERATING ROOM MOCL[place]/* Daily Note: Pt alert and oriented, aware of procedure. +2 dp and pt pulses to left knee, push/pull adequate. Tolerated IV well. This note was completed by: Natalee Allison RN CONFIRM BLOOD TYPE Collected: 11/30/2017 Status: F Source: [place] 7:05 AM [facility] OTHER [place] REPOSITORY TYPE CODE TESTS RESULT OUT OF REFERENCE UNITS RANGE LAB %ABR A ABO/RH(D) POSITIVE Performed By: #### CONABO #### [place] [id number] [place] [id number] ANES PREOP Observed: 11/30/2017 Status: COMPLETED Source: [place] 7:02 AM [facility] OTHER [place] REPOSITORY HNO ID: [id number] Author: Jr Ji Service: Anesthesiology Author Type: Anesthesiologist Type: Anesthesia PreOp Filed: 11/30/2017 7:20 AM Note Text: ANESTHESIOLOGY DAY OF SURGERY NOTE SERVICE DATE: 11/30/2017 SERVICE TIME: 7:02 AM : 1965 Procedure(s) (LRB): ROBOTIC ASSISTED UNI KNEE ARTHROPLASTY (Left) NAVIGATION COMPUTER ASSISTED (Left) Surgeon(s): Meaghan Broussard Estimated body mass index is 40.96 kg/m? as calculated from the following: Height as of 11/08/17: 182.9 cm (6'). Weight as of 11/08/17: 137 kg (302 lb). Most recent hematocrit and potassium results: Hematocrit 47.8 10/18/2017 Potassium 3.8 11/08/2017 ANES DOS/PREOP NOTE: Vitals: 11/30/17 0637 BP: 144/82 Pulse: 80 Resp: 16 Temp: 36.7 ?C (98.1 ?F) TempSrc: Temporal Artery SpO2: 98% ACTIVE PROBLEM LIST Family History of Colon Cancer Esophageal Reflux Abdon (Obstructive Sleep Apnea) Essential Hypertension Morbid Obesity Due to Excess Calories (Hcc) Hyperlipidemia Ldl Goal <100 Primary Osteoarthritis of Left Knee Obesity, Class III, BMI >= 40 PAST MEDICAL HISTORY Diagnosis Date - Essential hypertension 09/15/2016 - HTN (hypertension) - Hyperlipidemia LDL goal <100 09/15/2016 - Situational depression 09/15/2016 - Skin cancer of face 09/06/10 Invasive SCC left lateral cheek PAST SURGICAL HISTORY Procedure Laterality Date - COLONOSCOP W/ OR W/O BRSH SPEC 06/10/2004 Colonoscopy - COLONOSCOP W/ OR W/O BRSH SPEC 04/08/10 Normal - EGD W/O BRSH SPECIMEN W/BX 04/08/10 Mild antral gastritis - EGD W/O OR W/BRUSH/WASH 06/10/2004 EGD - KNEE SCOPE,DIAGNOSTIC 1982 right Arthroscopy, knee - MAL LESION FACE,EAR,EYEL <5MM 09/06/10 Exc. left cheek skin lesion/ablate skin tags axilla bilaterally - PAST SURGICAL HISTORY OF 1997 knee surgery - SHAV SKIN LES <5MM FACE,FACIAL 04/01/14 Shave bx right infraorbit - SIMP REPAIR SCALP,NECK,TRK <2.5CM 10/25/12 Right thumb lac repair FAMILY HISTORY Problem Relation Age of Onset - Cancer Mother colon - corneal transplant x 2 [OTHER] Father Social History: Social History Substance Use Topics - Smoking status: Never Smoker - Smokeless tobacco: Never Used - Alcohol use Yes Comment: Occasional No current facility-administered medications on file prior to encounter. Current Outpatient Prescriptions on File Prior to Encounter: lisinopril-hydrochlorothiazide (PRINZIDE,ZESTORETIC) 20-12.5 mg per tablet Take 2 tablets by mouth once daily. COMPOUNDED PRESCRIPTION CPAP/BIPAP MASK A7034 CUSHION FOR NASAL APAP A7032 DISPOSABLE FILTER/APAP A7038 CPAP TUBING WHEATING ELEMENT A4604 HEADGEAR USED W/CPAP/BIPAP A7035 naltrexone-bupropion (CONTRAVE) 8-90 mg TbER 1 po qam for 1 wk; then 1 po BID for 1 wk; then 2 po qam and 1 every afternoon for 1 wk; then 2 po BID (Patient not taking: Reported on 11/08/2017 ) COMPOUNDED PRESCRIPTION CPAP @ 9 cm of water w/humidification. Mask ( medium ResMed Browning FX nasal pillows) optional chin strap (if indicated) , filters, tubing, humidifier and lifetime supplies Omeprazole Magnesium (PRILOSEC OTC) 20 mg ORAL tablet Take 1 tablet by mouth daily before breakfast. 1/2 hr before meal. Current Facility-Administered Medications: lidocaine 10 mg/mL (1 %) 1-2 mg injection (XYLOCAINE) 0.1- 0.2 mL INTRADERMAL PRN Magalys (Pa) Felix lactated ringers infusion 5-30 mL/hr INTRAVENOUS CONTINUOUS Magalys (Pa) Felix ceFAZolin 3 g in D5W 100 mL (ANCEF) 3 g INTRAVENOUS ONCE Magalys [place] (Pa) Allergies: ALLERGIES No Known Allergies DOS EXAM: Adequate NPO Status: Yes Anesthetic Risks, Benefits, Alternatives, Personnel and Consent Discussed: Yes Patient agrees to proceed: Yes Previous Anesthesia: No history of adverse event Airway Assessment: MP 4; Neck ROM: Limited Extension; Airway Evaluation: Short Neck, Thick neck and Small Mouth Opening Symptoms of Sleep Apnea: abdon on cpap hs Dentition: Teeth intact Additional Physical Exam: Lungs: Lungs clear to auscultation. Good diaphragmatic excursion. Cardiac: normal S1 and S2; no rubs, no murmurs, and no gallops Additional Pertinent Findings: N/A Blood Products: Will accept Blood/Blood Products Anesthetic Plan: Regional with general as back up Anesthetic Monitoring: Standard ASA Monitors Pain Management Plan: Parenteral or Oral and Peripheral Nerve Block ASA Class: 3 Other Medical Problems: None Chronic Beta Sandy medication administered within 24 hours: N/A I have interviewed and examined the patient. I have reviewed the medical record and/or the pre-anesthesia evaluation, pertinent labs, and test results. Significant changes in the patient's condition since the History and Physical, not otherwise documented in primary service progress notes: No This contains updated information obtained within 48 hours of Surgery/Procedure. SIGNATURE: Jr Ji MD PATIENT NAME: Justus Erickson III DATE: November 30, 2017 TIME: 7:02 AM CSN: [id number] PT ED Observed: 11/30/2017 Status: COMPLETED Source: [place] 6:16 AM CLINIC OTHER CAMPUS REPOSITORY [facility] ID: [id number] Author: Mary Lou (Rn) ALFONSO Blevins Service: Nursing Author Type: Registered Nurse Type: Patient Education Filed: 11/30/2017 6:17 AM Note Text: PATIENT EDUCATION TOPIC: PROCEDURE / SURGERY: Pre-op Teaching: Logistics Protocols Complication Prevention Surgical Safety Principles PATIENT NAME: Justus Erickson III PATIENT LOCATION: [facility]-OPERATING ROOM POOL/L* READINESS TO LEARN COGNITIVE ABILITY: Alert and oriented MOTIVATION TO LEARN: Interested FAMILY SUPPORT: High - Very involved in pt care INSTRUCTION PROVIDED TO: Patient and family member PATIENT LEARNS BEST BY: Verbal Instruction FACTORS AFFECTING LEARNING: None PHYSICAL LIMITATIONS AFFECTING LEARNING: None LEARNING RESPONSE DIAGNOSIS: ADULT: PATIENT/FAMILY RESPONSE: Verbalizes understanding of: PRE-OPERATIVE INSTRUCTIONS-Correct action to take to follow pre-operative instructions PRE-PROCEDURE INSTRUCTIONS-Correct action to take to follow pre-procedure instructions METHOD OF INSTRUCTION: Verbal instruction FOLLOW-UP PLAN: Complete - No need for follow-up INSTRUCTIONAL AIDS USED: NA SUPPLEMENTAL MATERIAL PROVIDED TO PATIENT: None REFERRAL (RECOMMENDATION): None Electronically Signed By: Mary Lou Blevins RN NURSING PROG Observed: 11/09/2017 Status: COMPLETED Source: [place] 1:21 PM [facility] OTHER CAMPUS REPOSITORY HNO ID: [id number] Author: Colten LandRn) ALFONSO Shelby Service: (none) Author Type: Registered Nurse Type: Nursing Progress Note Filed: 11/09/2017 1:26 PM Note Text: PACC Nurse Progress Note History AND Physical: PACC Visit Date: 11/08 Original HANDP Date: N/A ED visit Date: N/A Outside HANDP Scanned Date: N/A Labs Within Last 6 Months: CBC: Date 10/18 BMP/CMP: Date 11/08 STAAMP: Date 11/08 TYPE AND SCREEN: Date 11/08 OTHER TEST: iron, ferritin, TIBC, Date 10/18 Nasal swab positive. All other results within acceptable limits. Imaging Within Last 12 Months: N/A Cardiac Testing: EKG in last 12 Months: Yes: Date: 11/08, Comment: needs confirmation Last Menstrual Period: LMP Date: N/A Postmenopausal >1yr: N/A, S/P Hysterectomy: N/A BMI Percentile (PEDS): N/A Risk Assessment: N/A Anesthesia Review: EKG sent to anesthesia to review. Reviewed by Dr. Du, no further action needed. Narrative: Nasal swab positive. Prescription for mupirocin placed by DIRECTOR OF PREMIUM SEAT SALES. Patient called and notified. Reviewed instructions for use 5 days prior to surgery. Verbalized understanding. Pre-op Considerations: N/A Chart Check: IN PROGRESS-need confirmed EKG Colten Shelby RN November 09, 2017 1:21 PM PROGRESS Observed: 11/09/2017 Status: COMPLETED Source: [place] 6:29 AM [facility] [place] REPOSITORY HNO ID: [id number] Author: Felicia Crooks Service: (none) Author Type: Nurse Practitioner Type: Progress Notes Filed: 11/09/2017 6:29 AM Note Text: Nasal swab positive for staphylococcus aureus by PCR, negative for MRSA. Mupirocin (BACTROBAN) 2 % ointment E-scripted to patient's pharmacy. CT KNEE WO IVCON LT Observed: 11/08/2017 Status: F Source: [place] 9:29 AM [facility] REPOSITORY * * *Final Report* * * DATE OF EXAM: Nov 08 2017 9:29AM CHERYL 0083 - CT KNEE WO IVCON LT / PROCEDURE REASON: PRIMARY OSTEOARTHRITIS LT KNEE(RANCHO PROTOCOL) * * * * Physician Interpretation * * * * EXAM: CT KNEE WO IVCON LT HISTORY: Encounter for other preprocedural examination Unilateral primary osteoarthritis, left knee TECHNIQUE: CT left knee without contrast 1mm axial slices, hip and ankle 3mm axial slices ([facility] CT protocol) CT Radiation dose: Integrated Dose-length product (DLP) for this visit = 1223 mGy*cm. CT Dose Reduction Employed: Automated exposure control (AEC) COMPARISON: 09/20/2017 imported radiographs FINDINGS: Left knee medial compartment predominant osteoarthritis with joint space narrowing, small subchondral cysts, subchondral and medullary sclerosis at the medial tibial metaphysis, tricompartmental osteophytes and joint effusion. IMPRESSION: Left knee osteoarthritis, preoperative [facility] CT protocol for robotic assisted total joint replacement. Manufacturing Engineering Director: PSCB Transcribe Date/Time: Nov 08 2017 9:33A Dictated by : Lainey ALY MD This examination was interpreted and the report reviewed and electronically signed by: Lainey ALY MD on Nov 08 2017 4:41PM EST [id number] COMP METABOLIC PANEL Collected: 11/08/2017 Status: F Source: [place] 8:30 AM [facility] OTHER CAMPUS REPOSITORY TYPE CODE TESTS RESULT OUT OF REFERENCE UNITS RANGE LAB TP 6.3-8.0 g/dL Protein, Total 7.2 LAB ALB 3.9-4.9 g/dL Albumin 4.2 LAB CA 8.5-10.2 mg/dL Calcium, Total 9.2 LAB TBIL 0.2-1.3 mg/dL Bilirubin, Total 0.5 LAB ALKP 36-108 U/L Alkaline Phosphatase 87 LAB AST 14-40 U/L AST 34 LAB GLU 74-99 mg/dL Glucose 99 LAB BUN 9-24 mg/dL BUN 13 LAB CRET 0.73-1.22 mg/dL Creatinine Low 0.68 LAB NA 136-144 mmol/L Sodium 141 LAB K 3.7-5.1 mmol/L Potassium 3.8 LAB CL 97-105 mmol/L Chloride 100 LAB CO2 22-30 mmol/L CO2 High 31 LAB AGAP 9-18 mmol/L Anion Gap 10 LAB ALT 10-54 U/L ALT High 61 LAB GFRAA >60 eGFR- >60 Amer. LAB GFRNAA >60 . eGFR-All Other Races >60 Performed By: #### CMP #### [place] [address] TYPE AND SCR (30D) Collected: 11/08/2017 Status: F Source: [place] 8:29 AM [facility] REPOSITORY TYPE CODE TESTS RESULT OUT OF REFERENCE UNITS RANGE LAB %ABR A ABO/RH(D) POSITIVE LAB % Antibody NEG Screen Performed By: #### [id number] #### [place] [address] PROGRESS Observed: 11/08/2017 Status: COMPLETED Source: [place] 8:13 AM [facility] REPOSITORY HNO ID: [id number] Author: Megan Doan LPN Service: (none) Author Type: (none) Type: Progress Notes Filed: 11/08/2017 8:44 AM Note Text: HCG wipes, instructions and demonstration provided this visit. Pt verbalized understanding. Information for joint replacement class with dates and times provided.Megan Doan LPN [facility] PCR Collected: 11/08/2017 Status: F Source: [place] 8:08 AM [facility] REPOSITORY TYPE CODE TESTS RESULT OUT OF RANGE REFERENCE UNITS LAB SASRC Nasal S aureus Spec Source LAB MRSRES Negative for MRSA MRSA by PCR. PCR LAB SARES Positive for Abnormal Staph Staphylococcus Alert aureus PCR aureus by PCR. Performed By: #### SAPCR #### [place] [address] [facility] [address] [place], [place] [address] HISTORY PHYSICAL Observed: 11/07/2017 Status: COMPLETED Source: [place] 8:28 AM [facility] REPOSITORY HNO ID: [id number] Author: Felicia Crooks Service: (none) Author Type: Nurse Practitioner Type: HANDP Filed: 11/08/2017 8:44 AM Note Text: HISTORY AND PHYSICAL EXAMINATION SERVICE DATE: 11/07/2017 SERVICE TIME: 7:54 AM PRIMARY CARE PHYSICIAN: Elias Gibbs III MD REASON FOR VISIT: Justus Erickson III is a 52 year old male who is scheduled for robotic assisted uni knee arthroplasty: LEFT at the request of Dr. Meaghan Broussard for consultation. My final recommendation will be communicated back to the requesting physician by way of shared medical record or letter. The patient has the following: ACTIVE PROBLEM LIST Family History of Colon Cancer Esophageal Reflux Abdon (Obstructive Sleep Apnea) Essential Hypertension Morbid Obesity Due to Excess Calories (Hcc) Hyperlipidemia Ldl Goal <100 Primary Osteoarthritis of Left Knee Subjective CHIEF COMPLAINT: Left knee pain HPI: 52 yo male with h/o left knee pain for the past year, progressively worsening. He c/o of intermittent pain, located along the inside of the knee, describes as a sharp, stabbing pain. He denies any specific injury/trauma that started the pain. 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 He c/o pain has affected his daily activities and work. He was referred to Dr Broussard for eval/treatment, who recommends surgery: UNI left knee arthroplasty. PAST MEDICAL HISTORY Diagnosis Date - Essential hypertension 09/15/2016 - HTN (hypertension) - Hyperlipidemia LDL goal <100 09/15/2016 - Situational depression 09/15/2016 - Skin cancer of face 09/06/10 Invasive SCC left lateral cheek PAST SURGICAL HISTORY Procedure Laterality Date - COLONOSCOP W/ OR W/O [facility] SPEC 06/10/2004 Colonoscopy - COLONOSCOP W/ OR W/O BRS SPEC 04/08/10 Normal - EGD W/O BRS SPECIMEN W/BX 04/08/10 Mild antral gastritis - EGD W/O OR W/BRUSH/WASH 06/10/2004 EGD - KNEE SCOPE,DIAGNOSTIC 1982 right Arthroscopy, knee - MAL LESION FACE,EAR,EYEL <5MM 09/06/10 Exc. left cheek skin lesion/ablate skin tags axilla bilaterally - PAST SURGICAL HISTORY OF 1997 knee surgery - SHAV SKIN LES <5MM FACE,FACIAL 04/01/14 Shave bx right infraorbit - SIMP REPAIR SCALP,NECK,TRK <2.5CM 10/25/12 Right thumb lac repair FAMILY HISTORY Problem Relation Age of Onset - Cancer Mother colon - corneal transplant x 2 [OTHER] Father SOCIAL HISTORY: Social History Marital status: Spouse name: Years of education: Number of children: Social History Main Topics Smoking status: Never Smoker Smokeless tobacco: Never Used Alcohol use: Yes Comment: Occasional Drug use: No MEDICATIONS: Prior to Admission medications as of 11/08/17 0757 Medication Sig Last Dose Taking amLODIPine (NORVASC) 10 mg tablet TAKE 1 TABLET BY MOUTH ONCE DAILY. Taking Yes lisinopril-hydrochlorothiazide (PRINZIDE,ZESTORETIC) 20-12.5 mg per tablet Take 2 tablets by mouth once daily. Taking Yes COMPOUNDED PRESCRIPTION CPAP @ 9 cm of water w/humidification. Mask ( medium ResMed Browning FX nasal pillows) optional chin strap (if indicated) , filters, tubing, humidifier and lifetime supplies Taking Yes Omeprazole Magnesium (PRILOSEC OTC) 20 mg ORAL tablet Take 1 tablet by mouth daily before breakfast. 1/2 hr before meal. Taking Yes COMPOUNDED PRESCRIPTION CPAP/BIPAP MASK A7034 CUSHION FOR NASAL APAP A7032 DISPOSABLE FILTER/APAP A7038 CPAP TUBING WHEATING ELEMENT A4604 HEADGEAR USED W/CPAP/BIPAP A7035 naltrexone-bupropion (CONTRAVE) 8-90 mg TbER 1 po qam for 1 wk; then 1 po BID for 1 wk; then 2 po qam and 1 every afternoon for 1 wk; then 2 po BID Patient not taking: Reported on 11/08/2017 Not Taking Metaxalone 400 mg tab Take by mouth. Not Taking No medication comments found. CURRENT ALLERGIES: ALLERGIES No Known Allergies REVIEW OF SYSTEMS: PAIN ASSESSMENT: Pain Pain Score: 7/10 Pain Location: Knee-Left Description: Sharp Duration Amount of Time: 9 Duration Units: Months Frequency: Intermittent Intervention: Reposition;Relaxation General: No weight loss, malaise or fevers. Neuro: No history of TIA's, stroke, CAR SHAGGER tumor, impaired sensorium, hemiplegia, paraplegia or quadraplegia. No neurological symptoms or problems. Respiratory: Positive for seasonal allegies. ABDON uses cpap. Cardiovascular: Positive for: Hypertension on PO meds Denies any chest pain, heart palpitations or fluttering. GI: Positive for GERD : No history of dysuria, frequency or incontinence,, stones or chronic kidney disease Endocrine: No history of diabetes. Has not taken steroids within the past 30 days. No history of endocrinological symptoms or problems. Hematology: No history of bleeding or clotting disorder. Pt is not taking anti-coagulation or platelet medications. No history of hematological symptoms or problems. Oncology: No history of CA metastasis, chemo within 30 days, or radiotherapy within 90 days. Has not lost 10% of body wt in 6 months. No history of oncological symptoms or problems. Psych: No history of psychiatric symptoms or problems. Musculoskeletal: See HPI Skin: Negative for lesions, rash and itching. Objective PHYSICAL EXAM: VITALS: BP 148/83 Pulse 90 Temp (Src) 98.6 (Temporal Artery) Resp 16 Ht 6' 0 (1.83m) Wt 302 lb (137.0kg) SpO2 95% BMI 40.95 kg/(m2). General: Alert and oriented, Morbidly obese BMI - 40.96 Skin: Normal color, no rash, no lesions. HEENT: EOM, pupils equal, round and reactive. Cardiovascular: Normal S1 AND S2, no rubs, murmurs or gallops. No JVD. Pulse regular. Lungs: Normal breath sounds, no wheezes or crackles. Abdomen: Soft, non-tender, no rigidity. Extremities: Joint tenderness: left knee Neurological: Normal cognition and motor skills. Pulses: Posterior tibial and radial pulses normal +2. Diagnostic tests reviewed for today's visit: Lab Value Units Date High Low HB 15.7 g/dL 10/18/2017 17.0 13.0 HCT 47.8 % 10/18/2017 51.0 39.0 WBC 8.41 k/uL 10/18/2017 11.00 3.70 PLT 325 k/uL 10/18/2017 400 150 Most recent labs: 10/18/2017 CBC (wnl) Iron (wnl) Left Knee Xray: 10/02/2017 IMPRESSION: Normal medial joint space under valgus stress. EK08/10/2016 Diagnosis:NORMAL SINUS RHYTHM WITH SINUS ARRHYTHMIA EKG completed in office today Date: November 07, 2017 Preliminary Result: SR, nonspecific intraventricular conduction delay Assessment ASSESSMENT Patient has the following medical conditions which may affect nancy-operative course osteoarthritis with pain - left knee ABDON - uses cpap daily BMI - 40.96 HTN - controlled with PO medications. BP today: 148/83. GERD - prilosec as needed METS: Climb a flight of stairs or walk up a hill (5.50 METs) Patient denies any chest pain or undue shortness of breath with the above physical activity. ASA Class: 2 ANESTHESIA FINDINGS: Intubation History: No history of difficult intubation Significant Anesthesia Considerations: None Airway Exam: General: obesity BMI - 40.96 Mallampati Score is CLASS II ULBT: Class I - Lower incisors can bite the upper lip above the ramila line Micronagthia/recessed chin Neck: large, thick, Short neck Mouth: Normal tongue size Dentition: Intact and Caps/crowns x1 in front, x2 in back Airway History: No abnormal airway history STOP BANG Score: ABDON uses CPAP/BiPAP PLAN This patient is optimally prepared for surgery pending LABS and EKG. CONSULTS: Anesthesia review EKG (today EKG showed a non-specific conduction delay, previous EKG: SR, with arrhythmia) The Following Tests/Procedures Have Been Initiated: Orders Placed This Encounter COMP METABOLIC PANEL [facility] PCR TYPE + SCREEN,30 DAY ECG COMPLETE W INTERPRETATION Planned Anesthetic: Per anesthesia choice Instructions Given to Patient: Patient given verbal and written preop instructions and voices comprehension and compliance. SIGNATURE: Felicia Crooks APRN.CNP PATIENT NAME: Justus Erickson III DATE: November 07, 2017 TIME: 8:28 AM PAGER/CONTACT #: [phone] CBC AND DIFFERENTIAL Collected: 10/18/2017 Status: F Source: [place] 9:52 AM [facility] REPOSITORY TYPE CODE TESTS RESULT OUT OF REFERENCE UNITS RANGE LAB WBC 3.70-11.00 k/uL WBC 8.41 LAB RBC 4.20-6.00 m/uL RBC 5.40 LAB HGB 13.0-17.0 g/dL Hemoglobin 15.7 LAB HCT 39.0-51.0 % Hematocrit 47.8 LAB MCV 80.0-100.0 fL MCV 88.5 LAB MCH 26.0-34.0 pG MCH 29.1 LAB MCHC 30.5-36.0 g/dL MCHC 32.8 LAB RDWCV 11.5-15.0 % RDW-CV 15.0 LAB PLTCT 150-400 k/uL Platelet Count 325 LAB MPV 9.0-12.7 fL MPV 10.0 LAB ANEUT % Neut% 72.1 LAB AANEUT 1.45-7.50 k/uL Abs Neut 6.06 LAB ALYMP % Lymph% 15.2 LAB AALYMP 1.00-4.00 k/uL Abs Lymph 1.28 LAB AMONO % [place]% 10.5 LAB AAMONO <0.87 k/uL Abs [place] High 0.88 LAB AEOS % Eosin% 2.0 LAB AAEOS <0.46 k/uL Abs Eosin 0.17 LAB ABASO % Baso% 0.2 LAB AABASO <0.11 k/uL Abs Baso <0.03 LAB AUNRBC 0 /100 WBC NRBCs 0.0 LAB ABNRBC <0.01 k/uL Absolute nRBC <0.01 LAB DTYP DTYPE Auto Diff Performed By: #### CBCDIF, ALB, IRON, FERR #### [facility] [address] [place] [address] ALBUMIN Collected: 10/18/2017 Status: F Source: [place] 9:52 [facility] REPOSITORY TYPE CODE TESTS RESULT OUT OF REFERENCE UNITS RANGE LAB ALB 3.9-4.9 g/dL Albumin 4.2 Performed By: #### CBCDIF, ALB, IRON, FERR #### [facility] [address] [place], [place] [address] IRON AND TIBC Collected: 10/18/2017 Status: F Source: [place] 9:52 AM [facility] REPOSITORY TYPE CODE TESTS RESULT OUT OF REFERENCE UNITS RANGE LAB IRN 41-186 ug/dL Iron 137 LAB TIBC 232-386 ug/dL TIBC 312 LAB SAT 15-57 % Transferrin Saturatn 44 Performed By: #### CBCDIF, ALB, IRON, FERR #### [facility] [address] [place], [place] [address] FERRITIN Collected: 10/18/2017 Status: F Source: [place] 9:52 AM [facility] REPOSITORY TYPE CODE TESTS RESULT OUT OF REFERENCE UNITS RANGE LAB FERR 30.3-565.7 ng/mL Ferritin 374.5 Performed By: #### CBCDIF, ALB, IRON, FERR #### [facility] [address] [place], [place] [address] PROGRESS Observed: 10/09/2017 Status: COMPLETED Source: [place] 12:36 PM [facility] REPOSITORY HNO ID: [id number] Author: Yady (Rn) Estevan Sheldon RN Service: (none) Author Type: Registered Nurse Type: Progress Notes Filed: 10/09/2017 12:36 PM Note Text: Patient referred to Blood Management for pre-surgical optimization. Current and complete lab data unavailable. Unable to complete evaluation. HOSP Observed: 10/09/2017 Status: COMPLETED Source: [place] 12:00 AM [facility] REPOSITORY Patient Update (ORAVON) JUSTUS ERICKSON ([id number]) 1965 [facility] Date Time Provider Department 10/09/17 YADY JACKSON (RN) RYLAN During your visit today, we recorded the following information about you: Yady Castellanos RN, RN 10/09/2017 12:36 PM Signed Patient referred to Blood Management for pre-surgical optimization. Current and complete lab data unavailable. Unable to complete evaluation. Allergies As of Date: 10/09/2017 (No Known Allergies) Date Reviewed: 10/02/2017 Reviewed by: Jessica Powers Cma - Fully Assessed Reason for Visit: Blood Management [Other] Prescriptions as of 10/09/2017 Sig: LISINOPRIL 20 MG-HYDROCHLOROT* Take 2 tablets by mouth once * AMLODIPINE 10 MG TABLET Take 1 tablet by mouth once d* COMPOUNDED PRESCRIPTION CPAP/BIPAP MASK A7034 CUSH* NALTREXONE 8 MG-BUPROPION 90 * 1 po qam for 1 wk; then 1 po * METAXALONE 400 MG TABLET Take by mouth. COMPOUNDED PRESCRIPTION CPAP @ 9 cm of water w/humidi* OMEPRAZOLE MAGNESIUM 20 MG TA* Take 1 tablet by mouth daily * Problem List As Of Date 10/09/2017 Noted Resolved Pain in testis [N50.819] INVALID FOR*09/15/2016 Family history of colon cancer [Z80.0] INVALID FOR* Esophageal reflux [K21.9] INVALID FOR* Acute gastritis without mention of hemorrhage [*INVALID FOR*09/15/2016 ABDON (obstructive sleep apnea) [G47.33] INVALID FOR* Tendinopathy of left gluteus medius [M67.952] INVALID FOR*03/22/2017 Essential hypertension [I10] INVALID FOR* Morbid obesity due to excess calories (HCC) [E6*INVALID FOR* Situational depression [F43.21] INVALID FOR*03/22/2017 Hyperlipidemia LDL goal <100 [E78.5] INVALID FOR* Primary osteoarthritis of left knee [M17.12] INVALID FOR* More... Encounter Status:Closed by YADY CASTELLANOS RN on 10/09/17 PROGRESS Observed: 10/02/2017 Status: COMPLETED Source: [place] 3:36 PM [facility] REPOSITORY HNO ID: [id number] Author: Avtar Padron) Julio C Service: (none) Author Type: Physician Manager Advertising Type: Progress Notes Filed: 10/02/2017 4:00 PM Note Text: The purpose of this encounter is to schedule L uni vs TKA at [facility] on November Kalpana Solitario RN XR KNEE SPECIFY 1V Observed: 10/02/2017 Status: F Source: [facility] 3:18 PM [facility] REPOSITORY * * *Final Report* * * DATE OF EXAM: Oct 02 2017 3:18PM AFR 5210 - XR KNEE SPECIFY 1V LT / PROCEDURE REASON: Unilateral post-traumatic osteoarthritis, left knee * * * * Physician Interpretation * * * * EXAMINATION: XR KNEE SPECIFY 1V LT HISTORY: VALGUS STRESS VIEW Unilateral post-traumatic osteoarthritis, left knee . TECHNIQUE: XR KNEE SPECIFY 1V LT Laterality: LEFT Number of different views (projections): 1 M: XB_1 COMPARISON: Side imported examination of 09/20/2017 RESULT: The outside examination weightbearing view demonstrates [id number]-[id number]-[id number] contact of the medial articular surfaces. Under valgus stress the bony articular surfaces to reveal a normal joint space. No other significant abnormality. IMPRESSION: Normal medial joint space under valgus stress. Manufacturing Engineering Director: PSCB Transcribe Date/Time: Oct 02 2017 4:26P Dictated by : RACH GUERRA MD This examination was interpreted and the report reviewed and electronically signed by: RACH GUERRA MD on Oct 02 2017 4:27PM EST [id number] PROGRESS Observed: 10/02/2017 Status: COMPLETED Source: [place] 3:17 PM [facility] REPOSITORY HNO ID: [id number] Author: Makeda Peña (Rt) Service: (none) Author Type: Fine Dining Server Type: Progress Notes Filed: 10/02/2017 3:18 PM Note Text: Radiology Service Progress Note PATIENT NAME: Justus Erickson DATE OF SERVICE: October 02, 2017 TIME: 3:17 PM PATIENT IDENTITY VERIFICATION COMPLETED USING TWO (2) METHODS: Patient confirmed name verbally and ID band matches. and Patient confirmed name verbally. PATIENT GENDER DATA: Male PATIENT RELEVANT IMPLANT DATA REVIEWED: Yes RADIOLOGY DEPARTMENT: General X-ray: Exam(s) Completed: Lower Extremity X-Ray(s): Knee, AP Only Left: VALGUS STRESS PERIPHERAL IV DATA: Not applicable SIGNED BY: BETO CARIAS RT October 02, 2017 3:17 PM PROGRESS Observed: 10/02/2017 Status: COMPLETED Source: [place] 2:41 PM [facility] REPOSITORY HNO ID: [id number] Author: Avtar Bunch (Pa) Service: (none) Author Type: Physician Manager Advertising Type: Progress Notes Filed: 10/02/2017 4:14 PM Note Text: CONSULT ORTHOPAEDIC: KNEE PRIMARY CARE PHYSICIAN: Elias Gibbs III MD REFERRING PROVIDER: SELF ASSESSMENT AND PLAN Dr. Broussard saw and spoke with patient this day. Impression: Left Knee Severe Degenerative Osteoarthritis, Primary and knee pain. Patient is ideal candidate for elective Uni versus TKA on the left side. He is not a candidate for surgery until late October secondary to arthroscopic surgery in late June followed by a CSI of the left knee in later July 2017. He has significant varus deformity with medial compartment collapse necessitating computer assisted surgery. Justus Erickson has radiograph and physical exam evidence of degenerative joint disease and wishes to pursue surgery. This patient appears to have sufficient symptoms to warrant surgical intervention and is an appropriate candidate for left Unicompartmental Knee Arthroplasty as evidenced by progressive symptoms. Progressive Symptoms Include: Pain effecting living situation. This patient has the following risk factors requiring the use of antibiotic cement: Obesity, BMI > 35 Previous surgery We had a lengthy discussion regarding the risk and benefit of surgery, the alternatives, limitations and personnel involved. These included but were not limited to infection, persistent pain, instability, nerve injury, blood clots, and medical complications. We also discussed the pre-operative course, surgery itself and rehabilitation. Nancy-operative blood management and transfusion issues were discussed, and options clearly outlined. The patient has consented to the use of the banked allogenic blood if medically necessary. The patient has elected to schedule surgery at this time or intends to call the office with a surgical date. Shared decision making occurred while obtaining informed consent. The patient will be scheduled for a pre-operative education class at which time they will have their nasal swab completed and will be given CHG cloths along with the verbal and written instructions for their use. The patient has been ordered: No orders placed today. CONSULTS: Patient does not require consults for optimization at this time. ACTIVE PROBLEM LIST Family History of Colon Cancer Esophageal Reflux Abdon (Obstructive Sleep Apnea) Essential Hypertension Morbid Obesity Due to Excess Calories (Hcc) Hyperlipidemia Ldl Goal <100 SUBJECTIVE CHIEF COMPLAINT: Knee Pain HPI: Justus Erickson is a 52 year old male here for evaluation and management of left knee pain. 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 The problem began limiting activities 7-12 months ago. Currently the pain in the joint is rated at 5 out of 10 with minimal activity. The pain is intermittent and is located along the inside aspect. The pain is described as sharp. Relieving factors include rest, ice, prescription medication and repositioning. There is no specific incident that brought about this pain. He also complains of weakness, locking, popping and giving way. FUNCTIONAL STATUS: Walk indoors, such as around the house (1.75 METs) Take care of self, that is eating, dressing, bathing, using the toilet (2.75 METs) Preoperative Ambulatory Status: Independent Community Distances Number of Entry Steps: 2 Bedroom Location: First floor Bathroom Location: First floor Caregiver Assistance: Consistent/Live-In (5-7 days/wk) Home Location: [place] to 150 miles PREVIOUS TREATMENTS: Attempted Weight Loss Medical Treatments: OTC NSAIDS for 3 Months or Greater (Ibuprofen), RX NSAIDS for 3 Months or Greater (Celebrex), Steroid Injections Left Knee Physical Therapy: Activities Modified Previous Surgery: Knee Arthroscopy REVIEW OF SYSTEMS: PAIN ASSESSMENT: See HPI. MUSCULOSKELETAL: See HPI. Surgical Risk Factors: Morbid Obesity PAST MEDICAL HISTORY Diagnosis Date - Essential hypertension 09/15/2016 - HTN (hypertension) - Hyperlipidemia LDL goal <100 09/15/2016 - Situational depression 09/15/2016 - Skin cancer of face 09/06/10 Invasive SCC left lateral cheek PAST SURGICAL HISTORY Procedure Laterality Date - COLONOSCOP W/ OR W/O BRSH SPEC 06/10/2004 Colonoscopy - COLONOSCOP W/ OR W/O BRSH SPEC 04/08/10 Normal - EGD W/O BRSH SPECIMEN W/BX 04/08/10 Mild antral gastritis - EGD W/O OR W/BRUSH/WASH 06/10/2004 EGD - KNEE SCOPE,DIAGNOSTIC 1982 right Arthroscopy, knee - MAL LESION FACE,EAR,EYEL <5MM 09/06/10 Exc. left cheek skin lesion/ablate skin tags axilla bilaterally - PAST SURGICAL HISTORY OF 1997 knee surgery - SHAV SKIN LES <5MM FACE,FACIAL 04/01/14 Shave bx right infraorbit - SIMP REPAIR SCALP,NECK,TRK <2.5CM 10/25/12 Right thumb lac repair FAMILY HISTORY Problem Relation Age of Onset - Cancer Mother colon - corneal transplant x 2 [OTHER] Father Social History Marital status: Spouse name: Years of education: Number of children: Social History Main Topics Smoking status: Never Smoker Alcohol use: Yes ALLERGIES: Review of patient's allergies indicates no known allergies. MEDICATIONS: lisinopril-hydrochlorothiazide (PRINZIDE,ZESTORETIC) 20-12.5 mg per tablet Take 2 tablets by mouth once daily. amLODIPine (NORVASC) 10 mg tablet Take 1 tablet by mouth once daily. COMPOUNDED PRESCRIPTION CPAP/BIPAP MASK A7034 CUSHION FOR NASAL APAP A7032 DISPOSABLE FILTER/APAP A7038 CPAP TUBING WHEATING ELEMENT A4604 HEADGEAR USED W/CPAP/BIPAP A7035 naltrexone-bupropion (CONTRAVE) 8-90 mg TbER 1 po qam for 1 wk; then 1 po BID for 1 wk; then 2 po qam and 1 every afternoon for 1 wk; then 2 po BID Metaxalone 400 mg tab Take by mouth. COMPOUNDED PRESCRIPTION CPAP @ 9 cm of water w/humidification. Mask ( medium ResMed Browning FX nasal pillows) optional chin strap (if indicated) , filters, tubing, humidifier and lifetime supplies Omeprazole Magnesium (PRILOSEC OTC) 20 mg ORAL tablet Take 1 tablet by mouth daily before breakfast. 1/2 hr before meal. ibuprofen 200 mg ORAL Tab Take 1-2 tablet's) every four(4) to six(6) hours as needed for pain. PHYSICAL EXAM: There were no vitals taken for this visit. All other systems deferred. GENERAL: Obese HABITUS: Obese GAIT: Antalgic to the left KNEE EXAM: Left: Alignment: Varus deformity, Correctable Range of motion is 0 degrees in extension and 120 degrees of flexion. Extension La degrees Pain with ROM: Yes Effusion: Moderate Tender to the palpation of Medial femoral condyle and Medial joint line Pain with patellar compression: No Stability: He has moderate laxity in the varus valgus planes Hip Exam: flexion to 100+ degrees, full extension and internal/external rotation adequate Neurovascular Status: Sensation Intact and Moves foot and ankle up AND down DATA: Diagnostic tests reviewed for today's visit: Left knee X-Ray: Medial joint space noted to have severe degenerative changes Stress views reveal no collapse of the lateral compartment SIGNATURE: Avtar Bunch PA-C PATIENT NAME: Justus Erickson DATE: October 02, 2017 TIME: 2:41 PM CNOV Observed: 10/02/2017 Status: COMPLETED Source: [place] 2:00 PM [facility] REPOSITORY Office Visit (ORAVON) JUSTUS ERICKSON ([id number]) 1965 [facility] Date Time Provider Department 10/02/17 2:00 PM AVTAR BUNCH (PA) During your visit today, we recorded the following information about you: Avtar Bunch PA-C 10/02/2017 4:14 PM Signed CONSULT ORTHOPAEDIC: KNEE PRIMARY CARE PHYSICIAN: Elias Gibbs III MD REFERRING PROVIDER: SELF ASSESSMENT ANDamp; PLAN Dr. Broussard saw and spoke with patient this day. Impression: Left Knee Severe Degenerative Osteoarthritis, Primary and knee pain. Patient is ideal candidate for elective Uni versus TKA on the left side. He is not a candidate for surgery until late October secondary to arthroscopic surgery in late June followed by a CSI of the left knee in later July 2017. He has significant varus deformity with medial compartment collapse necessitating computer assisted surgery. Justus Erickson has radiograph and physical exam evidence of degenerative joint disease and wishes to pursue surgery. This patient appears to have sufficient symptoms to warrant surgical intervention and is an appropriate candidate for left Unicompartmental Knee Arthroplasty as evidenced by progressive symptoms. Progressive Symptoms Include: Pain effecting living situation. This patient has the following risk factors requiring the use of antibiotic cement: Obesity, BMI ANDgt; 35 Previous surgery We had a lengthy discussion regarding the risk and benefit of surgery, the alternatives, limitations and personnel involved. These included but were not limited to infection, persistent pain, instability, nerve injury, blood clots, and medical complications. We also discussed the pre-operative course, surgery itself and rehabilitation. Nancy-operative blood management and transfusion issues were discussed, and options clearly outlined. The patient has consented to the use of the banked allogenic blood if medically necessary. The patient has elected to schedule surgery at this time or intends to call the office with a surgical date. Shared decision making occurred while obtaining informed consent. The patient will be scheduled for a pre- operative education class at which time they will have their nasal swab completed and will be given CHG cloths along with the verbal and written instructions for their use. The patient has been ordered: No orders placed today. CONSULTS: Patient does not require consults for optimization at this time. ACTIVE PROBLEM LIST Family History of Colon Cancer Esophageal Reflux Abdon (Obstructive Sleep Apnea) Essential Hypertension Morbid Obesity Due to Excess Calories (Hcc) Hyperlipidemia Ldl Goal ANDlt;100 SUBJECTIVE CHIEF COMPLAINT: Knee Pain HPI: Justus Erickson is a 52 year old male here for evaluation and management of left knee pain. 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 The problem began limiting activities 7-12 months ago. Currently the pain in the joint is rated at 5 out of 10 with minimal activity. The pain is intermittent and is located along the inside aspect. The pain is described as sharp. Relieving factors include rest, ice, prescription medication and repositioning. There is no specific incident that brought about this pain. He also complains of weakness, locking, popping and giving way. FUNCTIONAL STATUS: Walk indoors, such as around the house (1.75 METs) Take care of self, that is eating, dressing, bathing, using the toilet (2.75 METs) Preoperative Ambulatory Status: Independent Community Distances Number of Entry Steps: 2 Bedroom Location: First floor Bathroom Location: First floor Caregiver Assistance: Consistent/Live-In (5-7 days/wk) Home Location: [place] 150 miles PREVIOUS TREATMENTS: Attempted Weight Loss Medical Treatments: OTC NSAIDS for 3 Months or Greater (Ibuprofen), RX NSAIDS for 3 Months or Greater (Celebrex), Steroid Injections Left Knee Physical Therapy: Activities Modified Previous Surgery: Knee Arthroscopy REVIEW OF SYSTEMS: PAIN ASSESSMENT: See HPI. MUSCULOSKELETAL: See HPI. Surgical Risk Factors: Morbid Obesity PAST MEDICAL HISTORY Diagnosis Date - Essential hypertension 09/15/2016 - HTN (hypertension) - Hyperlipidemia LDL goal ANDlt;100 09/15/2016 - Situational depression 09/15/2016 - Skin cancer of face 09/06/10 Invasive SCC left lateral cheek PAST SURGICAL HISTORY Procedure Laterality Date - COLONOSCOP W/ OR W/O BRSH SPEC 06/10/2004 Colonoscopy - COLONOSCOP W/ OR W/O BRSH SPEC 04/08/10 Normal - EGD W/O BRSH SPECIMEN W/BX 04/08/10 Mild antral gastritis - EGD W/O OR W/BRUSH/WASH 06/10/2004 EGD - KNEE SCOPE,DIAGNOSTIC 1982 right Arthroscopy, knee - MAL LESION FACE,EAR,EYEL ANDlt;5MM 09/06/10 Exc. left cheek skin lesion/ablate skin tags axilla bilaterally - PAST SURGICAL HISTORY OF 1997 knee surgery - SHAV SKIN LES ANDlt;5MM FACE,FACIAL 04/01/14 Shave bx right infraorbit - SIMP REPAIR SCALP,NECK,TRK ANDlt;2.5CM 10/25/12 Right thumb lac repair FAMILY HISTORY Problem Relation Age of Onset - Cancer Mother colon - corneal transplant x 2 [OTHER] Father Social History Marital status: Spouse name: Years of education: Number of children: Social History Main Topics Smoking status: Never Smoker Alcohol use: Yes ALLERGIES: Review of patient's allergies indicates no known allergies. MEDICATIONS: lisinopril-hydrochlorothiazide (PRINZIDE,ZESTORETIC) 20-12.5 mg per tablet Take 2 tablets by mouth once daily. amLODIPine (NORVASC) 10 mg tablet Take 1 tablet by mouth once daily. COMPOUNDED PRESCRIPTION CPAP/BIPAP MASK A7034 CUSHION FOR NASAL APAP A7032 DISPOSABLE FILTER/APAP A7038 CPAP TUBING WHEATING ELEMENT A4604 HEADGEAR USED W/CPAP/BIPAP A7035 naltrexone-bupropion (CONTRAVE) 8-90 mg TbER 1 po qam for 1 wk; then 1 po BID for 1 wk; then 2 po qam and 1 every afternoon for 1 wk; then 2 po BID Metaxalone 400 mg tab Take by mouth. COMPOUNDED PRESCRIPTION CPAP @ 9 cm of water w/humidification. Mask ( medium ResMed Browning FX nasal pillows) optional chin strap (if indicated) , filters, tubing, humidifier and lifetime supplies Omeprazole Magnesium (PRILOSEC OTC) 20 mg ORAL tablet Take 1 tablet by mouth daily before breakfast. 1/2 hr before meal. ibuprofen 200 mg ORAL Tab Take 1-2 tablet's) every four(4) to six(6) hours as needed for pain. PHYSICAL EXAM: There were no vitals taken for this visit. All other systems deferred. GENERAL: Obese HABITUS: Obese GAIT: Antalgic to the left KNEE EXAM: Left: Alignment: Varus deformity, Correctable Range of motion is 0 degrees in extension and 120 degrees of flexion. Extension La degrees Pain with ROM: Yes Effusion: Moderate Tender to the palpation of Medial femoral condyle and Medial joint line Pain with patellar compression: No Stability: He has moderate laxity in the varus valgus planes Hip Exam: flexion to 100+ degrees, full extension and internal/external rotation adequate Neurovascular Status: Sensation Intact and Moves foot and ankle up ANDamp; down DATA: Diagnostic tests reviewed for today's visit: Left knee X-Ray: Medial joint space noted to have severe degenerative changes Stress views reveal no collapse of the lateral compartment SIGNATURE: Avtar uBnch PA-C PATIENT NAME: Justus Erickson DATE: October 02, 2017 TIME: 2:41 PM Meaghan Broussard MD 10/02/2017 3:29 PM Signed Instructions for Blood Management Decreasing the need for blood transfusions after surgery can help your body heal faster and help your body fight infection better. Blood Management will check your blood and iron levels to see if you would benefit from having treatment to help increase your blood counts before your surgery. What do you need to do? 1. Go and have your labs (CBC, Ferritin, Iron Studies) drawn today or within the next three days at the nearest [facility] lab. If you would like, you can go today, following your appointment, to any of our outpatient labs. 2. If it is determined that you would benefit from treatment, someone from the Blood Management Department will call you. If we call you, we will then give further instructions for iron replacement. If you do not hear from Blood Management, your lab results were okay and you do not need additional iron replacement. Questions? Contact us: If you are having surgery at [facility] or If you are having surgery at [place], [place], [facility], [place], [facility], [facility], or [facility] Referring Provider: SELF [[id number]] Allergies As of Date: 10/02/2017 (No Known Allergies) Date Reviewed: 10/02/2017 Reviewed by: Jessica Powers Cma - Fully Assessed Reason for Visit: surgical consult left knee pain [Other] Primary Visit Diagnosis:Post-traumatic osteoarthritis of left knee [M17.32] Other Visit Diagnosis:Anemia, unspecified type [D64.9] Order(s):XR KNEE SPECIFY 1V LT [[id number]] Order #: [id number] FUTURE XR KNEE SPECIFY 1V LT [[id number]] Order #: [id number]. #:[id number] ROLLING WALKER [[id number]] Order #: [id number] PATIENT PLACED ON [place] TKA CARE PATH [[id number]] Order #: [id number]: 1 ALBUMIN BLD [SQALB] Order #: [id number] FUTURE CBC + DIFF [SQCBCDIF] Order #: [id number] FUTURE IRON + TIBC [SQIRON] Order #: [id number] FUTURE FERRITIN BLD [SQFERR] Order #: [id number] FUTURE BLOOD MANAGEMENT REFERRAL [[id number]] Order #: [id number]: 3 TOTAL JOINT REPLACEMENT PRE-SURGERY EDUCATION CLASS [[id number]] Order #: [id number]: 1 Prescriptions as of 10/02/2017 Sig: LISINOPRIL 20 MG-HYDROCHLOROT* Take 2 tablets by mouth once * AMLODIPINE 10 MG TABLET Take 1 tablet by mouth once d* COMPOUNDED PRESCRIPTION CPAP/BIPAP MASK A7034 CUSH* NALTREXONE 8 MG-BUPROPION 90 * 1 po qam for 1 wk; then 1 po * METAXALONE 400 MG TABLET Take by mouth. 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 Other instructions from your clinician: Instructions for Blood Management Decreasing the need for blood transfusions after surgery can help your body heal faster and help your body fight infection better. Blood Management will check your blood and iron levels to see if you would benefit from having treatment to help increase your blood counts before your surgery. What do you need to do? 1. Go and have your labs (CBC, Ferritin, Iron Studies) drawn today or within the next three days at the nearest [facility] lab. If you would like, you can go today, following your appointment, to any of our outpatient labs. 2. If it is determined that you would benefit from treatment, someone from the Blood Management Department will call you. If we call you, we will then give further instructions for iron replacement. If you do not hear from Blood Management, your lab results were okay and you do not need additional iron replacement. Questions? Contact us: If you are having surgery at [facility] or If you are having surgery at [place], [facility], [facility], or [facility] Medications Discontinued During This Encounter ibuprofen 200 mg ORAL Tab 0 12/13/2006 10/02/2017 Class: Historical Med Route: ORAL Sig: Take 1-2 tablet's) every four(4) to six(6) hours as needed for pain. Disc: Reason for discontinue is not on file. Encounter Status:Closed by JULIO C DAWSON, AVTAR Retana on 10/02/17 HOSP Observed: 10/02/2017 Status: COMPLETED Source: [place] 12:00 AM [facility] OTHER CAMPUS REPOSITORY Patient:Justus Erickson III MRN: <[id number]> Height:6' 0(1.829 m) Weight:302 lb (136.986 kg) Outpatient Medications as of 11/30/17: docusate sodium (COLACE) 100 mg capsule oxyCODONE IR (ROXICODONE) 5 mg immediate release tablet aspirin, enteric coated (ASPIR-LOW) 81 mg EC tablet meloxicam (MOBIC) [address] (PROTONIX) 20 mg tablet mupirocin (BACTROBAN) 2 % ointment amLODIPine (NORVASC) 10 mg tablet lisinopril-hydrochlorothiazide (PRINZIDE,ZESTORETIC) 20-12.5 mg per tablet COMPOUNDED PRESCRIPTION naltrexone-bupropion (CONTRAVE) 8-90 mg TbER COMPOUNDED PRESCRIPTION Omeprazole Magnesium (PRILOSEC OTC) 20 mg ORAL tablet Admission/Clinic Administered Medications as of 11/30/17: lidocaine 10 mg/mL (1 %) 1-2 mg injection (XYLOCAINE) lactated ringers infusion ceFAZolin 3 g in D5W 100 mL (ANCEF) Problem List: Family history of colon cancer [Z80.0] Esophageal reflux [K21.9] ABDON (obstructive sleep apnea) [G47.33] Essential hypertension [I10] Morbid obesity due to excess calories (HCC) [E66.01] Hyperlipidemia LDL goal <100 [E78.5] Primary osteoarthritis of left knee [M17.12] Obesity, Class III, BMI >= 40 [E66.01] Allergies: No Known Allergies Date Verified:11/30/17 Lab Values Lab Value Units Date High Low POTA* 3.8 mmol/L 11/08/2017 5.1 3.7 Progress Notes (PRE ANES HOLINESS): Felicia Crooks APRN.NICOLASA 11/09/2017 6:[address] Erickson's Nasal swab was positive for staphylococcus aureus by PCR, negative for MRSA. Mupirocin (BACTROBAN) 2 % ointment E-scripted to patient's pharmacy. Please provide patient instructions. Thank you! Ashlyn Crooks APRN, DIRECTOR OF PREMIUM SEAT SALES [facility], [facility] [phone] Previous Version Colten Shelby, RN, RN 11/09/2017 1:30 PM Signed Patient called and notified of positive nasal swab. Order for mupirocin ointment placed by NICOLASA. Reviewed with patient how to use for 5 days prior to surgery. Verbalized understanding. Progress Notes (PRE ANES HOLINESS): Felicia Crooks APRN.NICOLASA 11/08/2017 8:26 AM Signed Can we please have Anesthesia review Dr. Erickson's EKG. Today, his EKG showed a non-specific conduction delay, previous EKG: SR, with arrhythmia. Thanks so much! Ashlyn Crooks APRN, DIRECTOR OF PREMIUM SEAT SALES [facility], [facility] [phone] Colten Shelby RN, RN 11/09/2017 1:28 PM Signed Reviewed by Dr. Du. No further action needed. HOSP Observed: 10/02/2017 Status: COMPLETED Source: [place] 12:00 AM [facility] REPOSITORY Patient Update (ORAVON) JUSTUS ERICKSON ([id number]) 1965 [facility] Date Time Provider Department 10/02/17 KALPANA SOLITARIO (RN) RYLAN During your visit today, we recorded the following information about you: Avtar Bunch PA-C 10/02/2017 4:00 PM Signed The purpose of this encounter is to schedule L uni vs TKA at [facility] on November Kalpana Solitario RN Allergies As of Date: 10/02/2017 (No Known Allergies) Date Reviewed: 10/02/2017 Reviewed by: Jessica Powers Cma - Fully Assessed Reason for Visit: Schedule Surgery [1330] Cmt: L uni vs TKA at [facility] on 11/29/2017 [place] Primary Visit Diagnosis:Primary osteoarthritis of left knee [M17.12] Order(s):SURGICAL REQUEST - ELECTIVE [[id number]] Order #: [id number]: 1 PATIENT PLACED ON [place] TKA CARE PATH [[id number]] Order #: [id number]: 1 CT KNEE WO IVCON LT [[id number]] Order #: [id number] FUTURE XR KNEE POST OP 3V AP/LAT/MERCHANT LT [[id number]] Order #: [id number] FUTURE Prescriptions as of 10/02/2017 Sig: LISINOPRIL 20 MG-HYDROCHLOROT* Take 2 tablets by mouth once * AMLODIPINE 10 MG TABLET Take 1 tablet by mouth once d* COMPOUNDED PRESCRIPTION CPAP/BIPAP MASK A7034 CUSH* NALTREXONE 8 MG-BUPROPION 90 * 1 po qam for 1 wk; then 1 po * METAXALONE 400 MG TABLET Take by mouth. 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] INVALID FOR*03/22/2017 Essential hypertension [I10] INVALID FOR* Morbid obesity due to excess calories (HCC) [E6*INVALID FOR* Situational depression [F43.21] INVALID FOR*03/22/2017 Hyperlipidemia LDL goal <100 [E78.5] INVALID FOR* Follow-up and Disposition History Recorded Encounter Status:Closed by AVTAR BUNCH PA-C on 10/02/17 KNEE 4 OR MORE Observed: 09/20/2017 Status: F Source: [facility] VIEWS 3:41 PM [facility] REPOSITORY [facility] Imaging Services [address] [place] [address] Knee 4 or More Views MR#: [id number] Acct: [id number] Name: JUSTUS ERICKSON Rep #: [id number] : 1965 M 52 From: Daiana Sherman MD PCP: Elias Gibbs Jr. Status: REG CLI Study: Knee 4 or More Views Date of Exam: 09/20/17 Exam# [id number] Ordering Dr: Ryan Recinos DO STUDY: X-RAY - LEFT KNEE REASON FOR EXAM: Male, 52 years old. Pain of the left knee. 9 weeks past surgery. TECHNIQUE: 4 view(s) of the knee. COMPARISON: Prior left knee radiographs of March 16, 2017. Prior limited fluoroscopic views of the knee from July 20, 2017. FINDINGS: Normal visualized distal femur. Broad area of new sclerotic density in the proximal tibia under the medial tibial plateau. Normal proximal tibiofibular articulation. Advanced/increased narrowing of the medial compartment. Normal lateral femorotibial compartment. There is mild degenerative arthrosis of the patellofemoral articulation. Negative for a substantial joint effusion. The soft tissue structures are unremarkable. RAD/Knee 4 or More Views IMPRESSION: Increased narrowing of the medial compartment since the prior radiographs of March 16, 2017. A broad band of sclerosis has developed in the proximal tibia under the medial tibial plateau. Negative for acute fracture or substantial joint effusion. Electronically Signed: Daiana Sherman MD at 0:01 EDT , Service support , CC: Elias Gibbs Jr.; Ryan Recinos DO Manufacturing Engineering Director: Signed CR-KNEE 4 OR MORE Observed: 09/20/2017 Status: F Source: [facility] IMPORT 12:00 AM [facility] REPOSITORY Images were obtained outside of [facility] [id number] INITAL EVALUATION (1) Observed: 09/06/2017 Status: F Source: [facility] - PT 8:45 AM [facility] REPOSITORY [facility] Physical [facility] [address] [place] [address]. [address] [place] [address] Fax REHABILITATION SERVICES INITIAL EVALUATION MR#: [id number] Acct: [id number] Name: JUSTUS ERICKSON Rep #: [id number] : 1965 52 From: Nadine Rudd DPT Referring DrLeobardo: Ryan Recinos DO Status: REG RCR Insurance: [employer] SELF PAY INSURANCE Patient's Visit Information JUSTUS ERICKSON is a 52 year old M referred to Physical Therapy by Ryan Recinos DO DR.MTODKeyonna with a diagnosis of Left knee medial meniscus tear, left medial tibial plateau stress fracture. Date of Evaluation: 09/05/17 Physical Therapist: Nadine Rudd - Visit Plan Frequency: 2x /Week Duration: 4 Weeks Plan: Focus on LE and core s/s s/p knee scope- pain management as needed - Subjective Subjective: Patient reports that he feels worse than he has every been. Had surgery 07/20/[address] Recinos- Before surgery pain was on the tibia under the knee cap- scope and injection feels good now the pain has moved. Point tender along the medial joint line and has not gotten any better. Ice helps momentarily but does not last long distances. Back to work 2 weeks post op- eased back in. General Surgery- stands half a day for 90 minutes at a time. No radiating pain. No N/T from surgery. Describes pain as sharp/shooting. No pain when sitting. Instant he gets off of it the pain goes away. Worst: 10/10 Best: 0/10. Had PT for piriformis syndrome right side- over a year ago. Does not get a lot of exercises. No x-rays since surgery- MRI- June. Celebrex started 2 days ago. Last injection was 3 weeks ago on the lateral side of the joint. Shoes- crocs with orthotics. Sleep: no problems. PMHx: HTN, multiple right knee surgeries. Meds: Celebrex, lysinopril, hypothiaside, amlodapine. - Objective Posture: FH, RS- pt is overweight. Gait: antalgic decreased stance on the left LE- poor heel/toe pattern. Stairs: recip with 2 HR-poor control with descent and uses UE. HR/TR: able- discomfort with TR. Balance: WS but unable to SLS for greater than 3 seconds. Squat: (mini)- weight shift to the right and reports pain. Palpation: tender superior to medial joint line. ROM: 0-120 degrees. Strength: Ankle: 5/5, Knee: 4+/5 with pain, Hip: 4/5 Core: poor. Flexibility: HS: moderate, Gastroc: moderate. Observation: incision healing well no s/s of infection - Goals Goal 1:: Patient will be I with HEP and progression Goal Time Frame: 4-6 Weeks Goal 2:: Patient will asc/desc 8 stairs recip with 1 HR and good control Goal Time Frame: 4-6 Weeks Goal 3:: Patient will ambulate >300 feet with a normal gait pattern Goal Time Frame: 4-6 Weeks Goal 4:: Patient will demo 5/5 strength in LE where deficit Goal Time Frame: 4-6 Weeks - Rehabilitation Potential Physical Therapy Diagnosis: Patient presents with hypomobility s/p left knee scope. He has decreased strength and muscular endurance leading to pain with ADL's. Rehabilitation Potential: Good - Anticipated Interventions Patient/Client Instruction: Educate patient on: Benefits of Fitness Program For the Purpose of:: To increase tolerance to activity/condition/position Therapeutic Exercise to Include: Strength training, Endurance training, Balance training, Body mechanics, Postural training, Flexibilty training, Gait and locomotor training, Dynamic Lumbar Stabilization For the Purpose of:: To improve muscle performance and motor function TENS: Yes Cryotherapy (ice pack, ice massage): Yes Thermo therapy (hot pack): Yes Ultrasound (thermal/non thermal): Yes For the Purpose of:: To decrease pain Thank you for the opportunity to evaluate your patient. For Medicare and Medicare HMO plans, please review the plan of care and approve it. It will need to be FAXED BACK to us at [phone] for Medicare purposes. Please let me know if there are questions or concerns regarding this plan of care. Physician Signature: Date: <Electronically signed by Nadine Rudd DPT> 09/06/17 0845 CC: Elias Gibbs Jr.; Ryan Recinos DO ELR Signed For Medicare only, by signing this I certify the plan of care. Physicians Signature Date ALLERGIES ALLERGIES DATE TYPE / CODE NAME / CODE REACTION SEVERITY SOURCE 07/05/2018 Drug No Known Unknown [facility] Allergy/416 Allergies/U94032 Hospital 097377(SNOM 0388(RXNORM) Repository ED CT) Drug NO KNOWN [facility] Class/71260 ALLERGIES Other [place] 1003(SNOMED Repository CT) ENCOUNTERS ENCOUNTERS ADMIT/DISCHARGE ACCOUNT ADMITTING ENCOUNTER LOCATION SOURCE NUMBER CLASS 07/17/2018 [id number] [facility] ing:MRI Repository 07/05/2018 [id number] [facility] ing:HPRAD Repository 07/05/2018/07/05/19 [id number] Ambulatory BMSBuilding:B Lesly [facility] Repository 06/17/2018/06/17/20 [id number] Ambulatory [address] Main [place] Repository 04/02/2018/04/03/20 [id number] Ambulatory [address] Main [place] Repository 03/19/2018 [id number] [facility] ing:LAB Repository 03/05/2018/03/05/20 [id number] Ambulatory [address] [place] Repository 02/21/2018/02/23/20 [id number] Ambulatory [address] [place] Repository 12/18/2017/12/19/19 [id number] Ambulatory [address] [place] Repository 12/18/2017/12/19/19 [id number] Ambulatory [address] Main [place] Repository 11/30/2017/12/01/19 [id number] AARTI [address] Other [place] Repository 11/08/2017 [id number] Ambulatory [facility] Other [place] Repository 11/08/2017 [id number] Ambulatory [facility] Other [place] Repository 11/08/2017/11/09/19 [id number] Ambulatory [address] [place] Repository 10/18/2017/10/19/19 [id number] Ambulatory [address] [place] Repository 10/02/2017/10/03/19 [id number] Ambulatory [address] [place] Repository 10/02/2017/10/05/19 [id number] Ambulatory [address] Main [place] Repository 09/20/2017/09/21/19 [id number] Ambulatory [address] ing:PT Repository 09/20/2017 [id number] [facility] ing:HPRAD Repository PAYERS PAYERS ENCOUNTER GUARANTOR PAYER SUBSCRIBER SOURCE 07/17/2018 JUSTUS Parks JUSTUS Dey Lesly [id number] Insurance:OBWC PEABODYDOB: Community [facility] [id number] Number: Repository [address]Ypv: [phone] [id number] [phone] () Date:4743-14-89LS [address], [place] [address]KU: 07/17/2018 Secondary JUSTUS P Lesly Insurance:CIGNAPolicy PEABODYDOB: Community Number: [id number] [id number] Repository Date:9314-32-38OJ [address], [place] [address]ZQ: 07/17/2018 Tertiary NOT GIVENUNK [place] Insurance:SELF PAY [facility] Number: Effective Repository Date:2018-07-12 07/05/2018 JUSTUS Dey Primary JUSTUS P Lesly [id number] Insurance:CIGNAPolicy PEABODYDOB: [facility] Number: [id number] [id number] Repository [address]Uoz: [phone]) Date:8829-55-92ZG [phone] () [place]20[place]KHDQALTVPCH, [place] [address]MI: 07/05/2018 Secondary NOT GIVENUNK [place] Insurance:SELF PAY [facility] Number: Effective Repository Date:2018-07-05 07/05/2018 JUSTUS Dey Primary JUSTUS P Lesly [id number] Insurance:OBWC PEABODYDOB: [facility] [id number] Number: Repository [id number]: [phone] [id number] [phone] () Date:0869-02-72TF [address]YEHCZ[place], [place] [address]RV: 07/05/2018 Secondary NOT GIVENUNK Les[place] Insurance:SELF PAY [facility] Number: Effective Repository Date:2018-07-05 03/19/2018 JUSTUS Dey Primary JUSTUS Dey Lesly [id number] Insurance:CIGNAPolicy PEABODYDOB: Community [place] Number: [id number] [id number] Repository [address]Xcu: [phone]) Date:7153-86-75PW [phone] () 642[address]OIOAGRAPHXI, [place] [address]ZD: 03/19/2018 Secondary NOT GIVENUNK [place] Insurance:SELF PAY [facility] Number: Effective Repository Date:2018-03-19 09/20/2017 JUSTUS Dey Primary JUSTUS Dey Lesly [id number] Insurance:CIGNAPolicy PEABODYDOB: Community [place] Number: [id number], [place] [id number] Repository [address]Zes: [phone]) Date:1484-63-40WB [phone] () 367190OOBODZOGRRW, [place] [address]KJ: 09/20/2017 Secondary NOT GIVENUNK [place] Insurance:SELF PAY [facility]: Effective Repository Date:2017-08-29 09/20/2017 JUSTUS Dey Primary JUSTUS Horneroster [id number] Insurance:CIGNAPolicy PEABODYDOB: Community [place] Number: [id number], [place] [id number] Repository [address]Kia: [phone]) Date:5823-50-56MP [phone] () 637624VRJBODXYKTT, [place] [address]DC: 09/20/2017 Secondary NOT GIVENUNK Lesly Insurance:SELF PAY [facility] Number: Effective Repository Date:2017-09-20
--- OUTSIDE RECORDS SUMMARY | 2018-09-18 18:39 | XMS RPT_ITS ---
:1965 Author Organization OHIP Care Team Providers Name Role Phone FELICIA CROOKS (SUPERINTENDENT CONCRETE [employer]ING [employer]) Referring Unavailable AVTAR BUNCH (PA) Referring Unavailable MEAGHAN BROUSSARD Admitting Unavailable MEAGHAN BROUSSARD Attending Unavailable RHEA ANDERSON Consulting Unavailable KERMIT HIGH Attending Unavailable KERMIT HIGH Referring Unavailable KERMIT HIGH Attending Unavailable AVTAR BUNCH (PA) Attending Unavailable AVTAR BUNCH (PA) Referring Unavailable CEBUL III, ELIAS A Attending Unavailable CEBUL III, ELIAS A Referring Unavailable AVTAR BUNCH (PA) Referring Unavailable AVTAR BUNCH (PA) Attending Unavailable AVTAR BUNCH (PA) Referring Unavailable AARTI, MEAGHAN Lester Referring Unavailable AARTI, MEAGHAN M Referring Unavailable NAGAVTAR LILLY (PA) Referring Unavailable AARTI, MEAGHAN M Attending Unavailable Mitchel, William Attending Unavailable Cebul III, [...] TYPE CONDITION / CODE ATTENDING STATUS SOURCE 07/23/2018 Unknown S29.011A - Strain of William Grullon Active [facility] thorax, initial Repository encounter / S29.011A(ICD-10) 07/05/2018 Unknown S70.02XA - Contusion William Grullon Active [facility] of left hip, initial [facility] encounter / Hospital S70.02XA(ICD-10) Repository 07/05/2018 Unknown S70.12XA - Contusion William Grullon Active [facility] of left thigh, Community initial encounter / Hospital S70.12XA(ICD-10) Repository 03/05/2018 Active Unknown / JULIO C Active [place] UNK(Unknown) AVTAR Retana (PA) Clinic Main [place] Repository 11/30/2017 Active Unilateral primary AARTI MEAGHAN Active [place] osteoarthritis, left M Clinic Other knee / [place] M17.12(ICD-10) Repository 11/30/2017 Active Presence of MEAGHAN BROUSSARD Active [facility] unspecified M Clinic Other artificial knee [place] joint / Repository Z96.659(ICD-10) 09/15/2016 Active Hyperlipidemia, NA Active [facility] unspecified / Clinic Other E78.5(ICD-10) [place] Repository 09/15/2016 Active Morbid (severe) NA Active [facility] obesity due to Clinic Other excess calories / [place] E66.01(ICD-10) Repository 09/15/2016 Active Essential (primary) NA Active [facility] hypertension / Clinic Other I10(ICD-10) [place] Repository 09/01/2016 Active Obstructive sleep NA Active [facility] apnea (adult) Clinic Other (pediatric) / [place] G47.33(ICD-10) Repository 11/08/2017 Active Encounter for other NA Active [facility] preprocedural Clinic Other examination / [place] Z01.818(ICD-10) Repository 11/08/2017 Active Pain in left knee / NA Active [facility] M25.562(ICD-10) Clinic Other [place] Repository 11/08/2017 Active Gastro-esophageal NA Active [facility] reflux disease Clinic Other without esophagitis [place] / K21.9(ICD-10) Repository 10/18/2017 Active Unilateral NA Active [facility] post-traumatic Clinic Main osteoarthritis, left [place] knee / Repository M17.32(ICD-10) 10/18/2017 Active Anemia, unspecified NA [facility] / D64.9(ICD-10) Clinic Main [place] Repository 11/15/2017 Unknown Z98.890 - Other JorjeRyan Active [facility] specified [facility] postprocedural Hospital states / Repository Z98.890(ICD-10) 09/20/2017 Unknown M17.11 - Unilateral Ryan Recinos [facility] primary [facility] osteoarthritis, Hospital right knee / Repository M17.11(ICD-10) PROCEDURES PROCEDURES No Procedure Records FoundRESULTS RESULTS CHEST WITHOUT Observed: 07/17/2018 Status: F Source: [place] CONTRAST 4:27 PM [facility] REPOSITORY [facility] Imaging Services [address] [place] [address] Chest without Contrast MR#: [id number] Acct: [id number] Name: JUSTUS ERICKSON Rep #: [id number] : 1965 M 53 From: Kermit Michaels MD PCP: Elias Gibbs III, MD Status: REG CLI Study: Chest without Contrast Date of Exam: 07/17/18 Exam# [id number] Ordering Dr: William Grullon STUDY: MR CHEST [...] CC: William HUNG; Elias Gibbs III, MD External Auditor: Signed UPPER EXT JOINT Observed: 07/17/2018 Status: F Source: [place] ONLY(ROUTINE) 4:26 PM [facility] REPOSITORY [facility] Imaging Services [address] [place] [address] Upper Ext Joint Only(Routine) MR#: [id number] Acct: [id number] Name: JUSTUS ERICKSON Rep #: [id number] : 1965 M 53 From: Kermit Michaels MD PCP: Elias Gibbs III, MD Status: REG CLI Study: Upper Ext Joint Only(Routine) Date of Exam: 07/17/18 Exam# [id number] Ordering Dr: Mikhail Tejada STUDY: MRI RIGHT [...] , CC: Elias Gibbs III, MD; Mikhail HUNG External Auditor: Signed URGENT CARE VISIT Observed: 07/08/2018 Status: F Source: [place] REPORT 8:36 AM [facility] [place] [address] OFFICE VISIT Date of Service: 07/05/18 MR#: [id number] Acct: [id number] Name: DREROGERJUSTUS Tiburcio Rep #: [id number] : 1965 Provider: William HUNG Age/Sex: 53/M Location: [facility] Status: Signed Intake Vital Signs07/05/18 Body Mass [...] fatigue Exam Const General: cooperative, healthy appearing [facility] Head: normocephalic, atraumatic Ears: hearing grossly normal [...] MIN 2 Observed: 07/05/2018 Status: F Source: [place] VIEWS W/ PELVIS 3:00 PM [facility] REPOSITORY [facility] Imaging Services [address] [place] [address] Hips B/L min 2 views w/ Pelvis MR#: [id number] Acct: [id number] Name: JUSUTS ERICKSON Rep #: [id number] : 1965 53 From: Kermit Michaels MD PCP: Elias Gibbs III, MD Status: REG CLI Study: Hips B/L min 2 views w/ Pelvis Date of Exam: 07/05/18 Exam# [id number] Ordering Dr: William Grullon STUDY: X-RAY - [...] CC: William HUNG; Elias Gibbs III, MD External Auditor: Signed PROGRESS Observed: 06/21/2018 Status: COMPLETED Source: [place] 4:05 PM [facility] REPOSITORY HNO ID: [id number] Author: Kermit High V Service: (none) Author [...] DO PROGRESS Observed: 06/17/2018 Status: COMPLETED Source: [place] 10:05 AM [facility] [place] REPOSITORY O ID: [id number] Author: Kermit High V Service: (none) Author Type: Physician Type: Progress Notes Filed: 06/17/2018 10:09 AM Note Text: Patient presents with: left shoulder pain, follow up HPI: Justus is a 53 year old male who presents for evaluation of shoulder pain for 2 weeks. He received a [place] injection [place] 3 months ago, and had great symptom [...] DO PROGRESS Observed: 06/17/2018 Status: COMPLETED Source: [place] 9:38 AM [facility] REPOSITORY O ID: [id number] Author: Heather Nelson Ma Service: (none) Author [...] injection. CNOV Observed: 06/17/2018 Status: COMPLETED Source: [place] 9:[address] [facility] Office Visit ([facility]) JUSTUS ERICSKON III ([id number]) 1965 M EMP Date Time Provider Department [...] weeks. He received a [place] injection [place] 3 months ago, and had great symptom [...] High DO Referring Provider: KERMIT HIGH V [[id number]] Allergies As of Date: 06/17/2018 (No Known [...] tabletRfl: 0 MRI SHOULDER WO IVCON LT [[id number]] Order #: [id number] FUTURE Prescriptions as of 06/17/2018 Sig: AMLODIPINE [...] 06/17/18 PROGRESS Observed: 04/02/2018 Status: COMPLETED Source: [place] 4:27 PM [facility] [place] REPOSITORY [facility] ID: [id number] Author: Kermit High V Service: (none) Author [...] DO PROGRESS Observed: 04/02/2018 Status: COMPLETED Source: [place] 4:01 PM [facility] [place] REPOSITORY HNO ID: [id number] Author: Vanessa Pond RN Service: (none) Author [...] relief. CNOV Observed: 04/02/2018 Status: COMPLETED Source: [place] 4:00 PM [facility] REPOSITORY Office Visit ([facility]) DREJUSTUS Tiburcio LUBIN ([id number]) 1965 M [facility] Date Time Provider Department 04/02/18 4:00 [...] Status: F Source: [place] 7:53 AM [facility] REPOSITORY TYPE CODE TESTS RESULT OUT OF [...] 8 Performed By: #### L500.4050, L500.4100 #### [facility] [address] [place], [place], [address] LIPID PROFILE Collected: 03/19/2018 Status: F Source: [place] 7:53 AM [facility] REPOSITORY TYPE CODE TESTS RESULT OUT OF [...] 24 Performed By: #### L500.4050, L500.4100 #### [facility] [address] [place], [place], [address] PROGRESS Observed: 03/05/2018 Status: COMPLETED Source: [place] 3:45 PM [facility]IC MAIN CAMPUS REPOSITORY HNO ID: [id number] Author: Avtar Bunch (Pa) Service: (none) Author Type: Physician Manager Strategic Alliances Type: Progress Notes Filed: 03/06/2018 7:55 AM Note Text: Ortho Knee Follow Up Note Narrative Referring Provider: Avtar Bunch PA-C [address] [facility] [address] PCP: Elias Gibbs III MD IMPRESSION/PLAN: 52 [...] PA-C CNOV Observed: 03/05/2018 Status: COMPLETED Source: [place] 3:30 PM [facility] REPOSITORY Office Visit ([place]) JUSTUS ERICKSON III ([id number]) 1965 M [facility] Date Time Provider Department 03/05/18 3:30 PM AVTAR BUNCH (PA) During your visit today, we recorded the following information about you: Blood pressure 152/82 Avtar Bunch PA-C 03/06/2018 7:55 AM Signed Ortho Knee Follow Up Note Narrative Referring Provider: Avtar Bunch PA-C [address] [facility] [address] PCP: Elias Gibbs III MD IMPRESSION/PLAN: 52 [...] Bunch PA-C Referring Provider: AVTAR BUNCH (ANABELL) [[id number]] Allergies As of Date: 03/05/2018 (No Known [...] 03/06/18 PROGRESS Observed: 02/21/2018 Status: COMPLETED Source: [place] 5:10 PM [facility] [place] REPOSITORY HNO ID: [id number] Author: Elias Gibbs III Service: (none) Author [...] MD CNOV Observed: 02/21/2018 Status: COMPLETED Source: [place] 4:00 PM [facility] REPOSITORY Office Visit (FAMPWS) JUSTUS ERICKSON III ([id number]) 1965 M [facility] Date Time Provider Department 02/21/18 4:00 [...] III MD Referring Provider: ELIAS GIBBS III [[id number]] Allergies As of Date: 02/21/2018 (No Known Allergies) Date Reviewed: 02/21/2018 Reviewed by: Juliana ([facility]) ASHANTI Gaxiola - Fully Assessed Reason for Visit: Routine check up [Other] Primary Visit Diagnosis:Essential hypertension [I10] Other Visit Diagnoses:Morbid obesity due to excess calories (HCC) [E66.01] ABDON (obstructive sleep apnea) [G47.33] Benign colon polyp [K63.5] Order(s):losartan-hydrochlorothiazide (HYZAAR) 100-25 mg per tabletTake 1 tablet by mouth once daily.Disp: 30 tabletRfl: 11 CPAP DEVICE, WITH HUMIDIFIER [[id number]] Order #: [id number] Prescriptions as of 02/21/2018 Sig: AMLODIPINE 10 [...] 02/21/18 CNOV Observed: 12/18/2017 Status: COMPLETED Source: [place] 12:00 PM [facility] REPOSITORY Office Visit ([place]) JUSTUS ERICKSON III ([id number]) 1965 M [facility] Date Time Provider Department 12/18/17 12:00 PM AVTAR BUNCH (PA) During your visit today, we recorded the following information about you: Avtar Bunch PA-C 12/18/2017 11:38 AM Signed Ortho Knee Follow Up Note Narrative Referring Provider: Avtar Bunch PA-C [address] [facility] [address] PCP: Elias Gibbs III MD IMPRESSION/PLAN: 52 [...] Bunch PA-C Referring Provider: AVTAR BUNCH (ANABELL) [[id number]] Allergies As of Date: 12/18/2017 (No Known [...] 12/18/17 PROGRESS Observed: 12/18/2017 Status: COMPLETED Source: [place] 11:36 AM [facility] REPOSITORY O ID: [id number] Author: Avtar Bunch (Pa) Service: (none) Author Type: Physician Manager [employer] Type: Progress Notes Filed: 12/18/2017 11:38 AM Note Text: Ortho Knee Follow Up Note Narrative Referring Provider: Avtar Bunch PA-C [address] [facility] [address] PCP: Elias Gibbs III MD IMPRESSION/PLAN: 52 [...] 3V AP/LAT/MERCHANT Observed: 12/18/2017 Status: F Source: [facility] 10:49 AM [facility] REPOSITORY * * *Final Report* * [...] IMPRESSION: Normal left postoperative medial unicondylar arthroplasty. External Auditor: AIME Transcribe Date/Time: Dec 18 2017 10:57A Dictated by : RACH GUERRA MD This examination was interpreted and the report reviewed and electronically signed by: RACH GUERRA MD on Dec 18 2017 10:58AM EST [id number] PROGRESS Observed: 12/18/2017 Status: COMPLETED Source: [place] 10:46 AM [facility]AMP[facility] REPOSITORY HNO ID: [id number] Author: Bert Conteh (Rt) Service: (none) Author Type: Workforce Planning Analyst Type: Progress Notes Filed: 12/18/2017 10:47 AM [...] AM CONSULT Observed: 11/30/2017 Status: COMPLETED Source: [place] 4:45 PM [facility] OTHER CAMPUS REPOSITORY HNO ID: [id number] Author: Rhea Anderson Service: General Internal Medicine [...] NURSING PROG Observed: 11/30/2017 Status: COMPLETED Source: [place] 4:41 PM [facility] OTHER CAMPUS REPOSITORY HNO ID: [id number] Author: Jama Valles RN Service: Nursing Author Type: Registered Nurse Type: Nursing Progress Note Filed: 11/30/2017 4:42 PM Note Text: Nursing Progress Note Patient Name: Justus Erickson III Patient Location: [facility]525/[id number]- Cleared by medical dr. anderson PT, and Dr. Mcclellan. This note was completed by: Jama Valles RN CASE MANAGEM Observed: 11/30/2017 Status: COMPLETED Source: [place] 4:19 PM [facility] REPOSITORY HNO ID: [id number] Author: Mckenna Weiner (Sw) Service: Care Management Author Type: Back Stayer Type: Care Mgt Progress Note Filed: 11/30/2017 4:21 PM Note Text: CARE MANAGEMENT DISCHARGE NOTE SERVICE DATE: 11/30/2017 SERVICE TIME: 4:20pm LOS: 1 day Admission Date: 11/30/2017 DISCHARGE ARRANGEMENT (list agency and phone number) Home and Home care Provider: [facility] CAREGIVER ASSESSMENT: Caregiver is ready, willing and [...] #: PROGRESS Observed: 11/30/2017 Status: COMPLETED Source: [place] 3:33 PM [facility] OTHER [place] REPOSITORY HNO ID: [id number] Author: Ryan Maza Service: Orthopaedic Surgery Author Type: Nurse Practitioner Type: Progress Notes Filed: 11/30/2017 3:39 PM Note Text: 5D REFRIGERATOR CAR ICER Floor Coverage Note: Patient is seen POD [...] with more than 50% of the total nuvx-vx-zbph time of the visit in counseling / coordination of care. SIGNATURE: Ryan Maza APRN.NICOLASA PATIENT NAME: Justus Erickson III DATE: November 30, 2017 TIME: 3:35 PM PAGER/CONTACT #: [phone] THERAPY NT Observed: 11/30/2017 Status: COMPLETED Source: [place] 2:43 PM CLINIC OTHER CAMPUS REPOSITORY HNO ID: [id number] Author: Lito Maldonado (PtLinda Vergara Service: Physical Therapy Author Type: Physical Therapist Type: Therapy (PT/OT/Speech/Resp) Filed: 11/30/2017 2:55 PM Note Text: Physical Therapy Evaluation LUCKR by Dr. Broussard SERVICE DATE: 11/30/2017 SERVICE TIME: 1320 to 1435 ROOM: [place] [address] Recommended Discharge Disposition: Home PT Anticipated Discharge [...] be available to A as needed. Recommend [facility] To progress ROM and strength [...] Diagnosis: Difficulty walking-musculoskeletal Interventions Provided: Evaluation;Therapeutic Exercise (76352);Therapeutic Activity (57188);Gait Training (64103) $ Evaluation-Low (49147) Billed Units: 1 unit Therapeutic Exercise (00767) Treatment Minutes: 15 1 unit Skilled Intervention(s): Instruction in therapeutic exercise supine B LE ther ex 1 x 10: QS, AP, GS, SAQ, Hip ABD, SLR and seated LE there ex 1 x 10: LAQ, Seated knee flex, seated knee ext stretch Verbal and tactile cuing provided L LE Facilitation of muscle control, optimal recruitment and alignment L LE Therapeutic Activity (32736) Treatment Minutes: 25 2 units Skilled Intervention(s): Instructed patient in supine to and from sit pushing with upper extremities to sit up Instruction in sit to and from stand technique with proper hand placement and body positioning at edge of bed/chair Education with TKR precautions, car transfers, commode transfers, safety Gait Training (55143) Treatment Minutes: 15 1 unit Skilled Intervention(s): [...] Course: Chart reviewed; Pt. was admitted to [facility] for elective L UCKR by Dr. 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 and was I with ADLs and IADLs [...] 30, 2017 TIME: 2:44 PM PAGER/CONTACT #: [phone] CASE MGT INIT Observed: 11/30/2017 Status: COMPLETED Source: [facility] 1:45 PM CLINIC OTHER CAMPUS REPOSITORY HNO ID: [id number] Author: Mckenna Weiner (Sw) Service: Care Management Author Type: Back Stayer Type: Care Mgt Initial Assessment Filed: 11/30/2017 1:48 PM Note Text: CARE MANAGEMENT: ASSESSMENT AND DISCHARGE PLAN SERVICE DATE: 11/30/2017 SERVICE TIME: 1:30pm PRIMARY CARE PHYSICIAN: Elias Gibbs III MD ADMISSION STATUS: Extended Recovery Needs Prior to Discharge: To Be Determined;Discharge Prescriptions;OT/PT Evaluation;Discharge Transportation 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 No Advance Directive: Current Advance Directive: Health Care Power of Flux Mixer In Chart: Yes Up To Date and [...] None Has the Patient Been in a Usp Facility in the Past 30 days? No SOCIAL: Living Arrangement: Home Lives With: Spouse Financial Resources: Employed: yes Primary Contact: Extended Emergency Contact Information Primary Emergency Contact: Anastacia Spear Address: [address] [place] [address] [place] [address] Mobile Relation: Spouse Supportive: Yes Other Important [...] 0 I feel financially burdened by my swc-tn-cvlyzk expenses for my prescription medication: Disagree completely [...] Provider List: Home Care Preference: Lesly morataya [facility] POTENTIAL TRANSITION PLANS Home Home Longterm OT/PT SIGNATURE: ÓSCAR Au PATIENT NAME: Justus Erickson III DATE: November 30, 2017 TIME: 1:45 PM PAGER/CONTACT #: LON POST Observed: 11/30/2017 Status: COMPLETED Source: [place] 12:32 PM [facility] OTHER CAMPUS REPOSITORY HNO ID: [id number] Author: Jr Ji Service: Anesthesiology Author Type: [...] 30, 2017 TIME: 12:32 PM PAGER/CONTACT #: [phone] NURSING PROG Observed: 11/30/2017 Status: COMPLETED Source: [place] 10:26 AM [facility] REPOSITORY HNO ID: [id number] Author: Sharon Maldonado (Rn) ALFONSO Smith Service: (none) Author Type: Registered Nurse Type: Nursing Progress Note Filed: 11/30/2017 10:29 AM Note Text: Discharge Status: Patient is Awakening, and is no airway issues. Skin condition was warm and pink. Transported to recovery room via bed with siderails up. Accompanied by scanning tech and EUNICE/. OPERATIVE NO Observed: 11/30/2017 Status: COMPLETED Source: [place] 9:54 AM [facility] REPOSITORY HNO ID: [id number] Author: Meaghan Broussard Service: Orthopaedic Surgery Author Type: Physician Type: Operative Report Filed: 11/30/2017 9:59 AM Note Text: PATIENT NAME: Justus Erickson III LOG ID: [id number] Surgery Date: November 30, 2017 Surgeon(s) and Manager Strategic Alliances(s): Surgeon(s) and Role: * Meaghan Broussard - Primary * Marco Mata - Assisting There were no qualified residents available for this procedure. Please bill for Jace Mata as first officer and flight instructor Procedure(s): Procedure(s) (LRB): ROBOTIC ASSISTED UNI KNEE [...] Implant Name Type Inv. Item Serial No. Microfilm Duplicating Unit Supervisor Lot No. [id number] No. Used CEMENT SIMPLEX P BONE RADIOPAQUE FULL DOSE - [id number] Cement / Putty CEMENT SIMPLEX P BONE RADIOPAQUE FULL DOSE DELFINO [id number] Left 1 SWW-ES-S-KIND IMPLANT - Rancho tibial baseplate Implant LPK-MC-O-KIND IMPLANT DELFINO [id number] Left 1 HRY-XK-G-KIND IMPLANT -Rancho femoral component Implant SVE-YO-R-KIND IMPLANT DELFINO [id number] Left 1 ZXD-ID-A-KIND IMPLANT -RANCHO tibial insert Implant RSZ-BG-C-KIND IMPLANT DELFINO [id number] Left 1 Problem List: ACTIVE PROBLEM LIST [...] NURSING PROG Observed: 11/30/2017 Status: COMPLETED Source: [place] 7:43 AM [facility] REPOSITORY HNO ID: [id number] Author: Sharon Ngo) ALFONSO Smith Service: (none) Author Type: Registered Nurse Type: Nursing Progress Note Filed: 11/30/2017 8:30 AM Note Text: Body temperature maintained by maintaining OR room temperature between 68-72 degrees F, providing patient with warm bath blankets, limiting areas of exposure and providing warm irrigation fluid. NURSING PROG Observed: 11/30/2017 Status: COMPLETED Source: [place] 7:43 AM [facility] HNO ID: [id number] Author: Sharon Ngo) ALFONSO Smith Service: (none) [...] NURSING PROG Observed: 11/30/2017 Status: COMPLETED Source: [place] 7:09 AM [facility] HNO ID: [id number] Author: Natalee Ngo) ALFONSO Allison Service: (none) Author Type: Registered Nurse Type: Nursing Progress Note Filed: 11/30/2017 7:10 AM Note Text: Nursing Progress Note Patient Name: Justus Erickson III Patient Location: -OPERATING ROOM [place]/* Daily Note: Pt alert and oriented, aware of procedure. +2 dp and pt pulses to left knee, push/pull adequate. Tolerated IV well. This note was completed by: Natalee Allison RN CONFIRM BLOOD TYPE Collected: 11/30/2017 Status: F Source: [place] 7:05 AM [facility] OTHER [place] REPOSITORY TYPE CODE TESTS RESULT OUT OF REFERENCE UNITS RANGE LAB %ABR A ABO/RH(D) POSITIVE Performed By: #### CONABO #### [place] [id number] [place] [id number] ANES PREOP Observed: 11/30/2017 Status: COMPLETED Source: [place] 7:02 AM [facility] OTHER [place] REPOSITORY HNO ID: [id number] Author: Jr Ji Service: Anesthesiology Author Type: [...] November 30, 2017 TIME: 7:02 AM CSN: [id number] PT ED Observed: 11/30/2017 Status: COMPLETED Source: [place] 6:16 AM CLINIC OTHER CAMPUS REPOSITORY [facility] ID: [id number] Author: Mary Lou (Rn) ALFONSO Blevins Service: [...] NURSING PROG Observed: 11/09/2017 Status: COMPLETED Source: [place] 1:21 PM [facility] OTHER CAMPUS REPOSITORY HNO ID: [id number] Author: Colten LandRn) ALFONSO Shelby Service: (none) [...] swab positive. Prescription for mupirocin placed by [employer]PER[employer]. Patient called and notified. Reviewed instructions for use 5 days prior to surgery. Verbalized understanding. Pre-op Considerations: N/A Chart Check: IN PROGRESS-need confirmed EKG Colten Shelby RN November 09, 2017 1:21 PM PROGRESS Observed: 11/09/2017 Status: COMPLETED Source: [place] 6:29 AM [facility] [place] REPOSITORY HNO ID: [id number] Author: Felicia Crooks Service: (none) Author Type: Nurse Practitioner Type: Progress Notes Filed: 11/09/2017 6:29 AM Note Text: Nasal swab positive for staphylococcus aureus by PCR, negative for MRSA. Mupirocin (BACTROBAN) 2 % ointment E-scripted to patient's pharmacy. CT KNEE WO IVCON LT Observed: 11/08/2017 Status: F Source: [place] 9:29 AM [facility] REPOSITORY * * *Final Report* [...] joint effusion. IMPRESSION: Left knee osteoarthritis, preoperative [place] [employer] [facility] protocol for robotic assisted total joint replacement. External Auditor: PSCB Transcribe Date/Time: Nov 08 2017 9:33A Dictated by : Lainey ALY MD This examination was interpreted and the report reviewed and electronically signed by: Lainey ALY MD on Nov 08 2017 4:41PM EST [id number] COMP METABOLIC PANEL Collected: 11/08/2017 Status: F Source: [place] 8:30 AM [facility] OTHER CAMPUS REPOSITORY TYPE CODE TESTS RESULT [...] Races >60 Performed By: #### CMP #### [place] [address] TYPE AND SCR (30D) Collected: 11/08/2017 Status: F Source: [place] 8:29 AM [facility] REPOSITORY TYPE CODE TESTS RESULT OUT OF REFERENCE UNITS RANGE LAB %ABR A ABO/RH(D) POSITIVE LAB % Antibody NEG Screen Performed By: #### [id number] #### [place] [address] PROGRESS Observed: 11/08/2017 Status: COMPLETED Source: [facility] 8:13 AM [facility] REPOSITORY HNO ID: [id number] Author: Megan Doan LPN Service: (none) Author Type: (none) Type: Progress Notes Filed: 11/08/2017 8:44 AM Note Text: HCG wipes, instructions and demonstration provided this visit. Pt verbalized understanding. Information for joint replacement class with dates and times provided.Megan Doan LPN STAPH AUREUS PCR Collected: 11/08/2017 Status: F Source: [facility] 8:08 AM [facility] REPOSITORY TYPE CODE TESTS RESULT OUT OF RANGE REFERENCE UNITS LAB SASRC Nasal S aureus Spec Source LAB MRSRES Negative for MRSA MRSA by PCR. PCR LAB SARES Positive for Abnormal Staph Staphylococcus Alert aureus PCR aureus by PCR. Performed By: #### SAPCR #### [place] [address] [facility] [address] [place], [place] [address] HISTORY PHYSICAL Observed: 11/07/2017 Status: COMPLETED Source: [facility] 8:28 AM [facility] REPOSITORY HNO ID: [id number] Author: Felicia Crooks Service: (none) Author Type: [...] Laterality Date - COLONOSCOP W/ OR W/O RUST SPEC 06/10/2004 Colonoscopy - COLONOSCOP W/ OR [...] fevers. Neuro: No history of TIA's, stroke, BLOCKER AND SEWER tumor, impaired sensorium, hemiplegia, paraplegia or quadraplegia. [...] 07, 2017 TIME: 8:28 AM PAGER/CONTACT #: [phone] CBC AND DIFFERENTIAL Collected: 10/18/2017 Status: F Source: [facility] 9:52 AM [facility] REPOSITORY TYPE CODE TESTS RESULT [...] k/uL Abs Lymph 1.28 LAB AMONO % Wirt% 10.5 LAB AAMONO <0.87 k/uL Abs Wirt High 0.88 LAB AEOS % Eosin% 2.0 LAB AAEOS <0.46 k/uL Abs Eosin 0.17 LAB ABASO % Baso% 0.2 LAB AABASO <0.11 k/uL Abs Baso <0.03 LAB AUNRBC 0 /100 WBC NRBCs 0.0 LAB ABNRBC <0.01 k/uL Absolute nRBC <0.01 LAB DTYP DTYPE Auto Diff Performed By: #### CBCDIF, ALB, IRON, FERR #### [facility] [place] [address] [address] ALBUMIN Collected: 10/18/2017 Status: F Source: [facility] 9:52 [facility] REPOSITORY TYPE CODE TESTS RESULT OUT OF REFERENCE UNITS RANGE LAB ALB 3.9-4.9 g/dL Albumin 4.2 Performed By: #### CBCDIF, ALB, IRON, FERR #### [facility] [place] [address] [place], [place] [address] IRON AND TIBC Collected: 10/18/2017 Status: F Source: [facility] 9:52 AM [facility] REPOSITORY TYPE CODE TESTS RESULT OUT OF REFERENCE UNITS RANGE LAB IRN 41-186 ug/dL Iron 137 LAB TIBC 232-386 ug/dL TIBC 312 LAB SAT 15-57 % Transferrin Saturatn 44 Performed By: #### CBCDIF, ALB, IRON, FERR #### [facility] [place] [address] [place], [place] [address] FERRITIN Collected: 10/18/2017 Status: F Source: [facility] 9:52 AM [facility] REPOSITORY TYPE CODE TESTS RESULT OUT OF REFERENCE UNITS RANGE LAB FERR 30.3-565.7 ng/mL Ferritin 374.5 Performed By: #### CBCDIF, ALB, IRON, FERR #### [facility] [address] [place], [place] [address] PROGRESS Observed: 10/09/2017 Status: COMPLETED Source: [facility] 12:36 PM [facility] REPOSITORY HNO ID: [id number] Author: Yady (Rn) Estevan Sheldon RN Service: (none) Author Type: Registered Nurse Type: Progress Notes Filed: 10/09/2017 12:36 PM Note Text: Patient referred to Blood Management for pre-surgical optimization. Current and complete lab data unavailable. Unable to complete evaluation. HOSP Observed: 10/09/2017 Status: COMPLETED Source: [facility] 12:00 AM [facility] REPOSITORY Patient Update (ORAVON) JUSTUS ERICKSON ([id number]) 1965 M [facility] Date Time Provider Department 10/09/17 YADY [...] 10/09/17 PROGRESS Observed: 10/02/2017 Status: COMPLETED Source: [facility] 3:36 PM [facility] REPOSITORY HNO ID: [id number] Author: Avtar Padron) Julio C Service: (none) Author Type: Physician Manager [employer] Type: Progress Notes Filed: 10/02/2017 4:00 PM Note Text: The purpose of this encounter is to schedule L uni vs TKA at [facility] on November Kalpana Solitario RN XR KNEE SPECIFY 1V Observed: 10/02/2017 Status: F Source: [facility] 3:18 PM [facility] [place] REPOSITORY * * *Final Report* * * [...] RESULT: The outside examination weightbearing view demonstrates cgyf-ia-tghh contact of the medial articular surfaces. Under valgus stress the bony articular surfaces to reveal a normal joint space. No other significant abnormality. IMPRESSION: Normal medial joint space under valgus stress. External Auditor: PSCB Transcribe Date/Time: Oct 02 2017 4:26P Dictated by : RACH GUERRA MD This examination was interpreted and the report reviewed and electronically signed by: RACH GUERRA MD on Oct 02 2017 4:27PM EST [id number] PROGRESS Observed: 10/02/2017 Status: COMPLETED Source: [facility] 3:17 PM [facility] REPOSITORY HNO ID: [id number] Author: Makeda Peña (Rt) Service: (none) Author Type: Workforce Planning Analyst Type: Progress Notes Filed: 10/02/2017 3:18 PM [...] PM PROGRESS Observed: 10/02/2017 Status: COMPLETED Source: [facility] 2:41 PM [facility] REPOSITORY HNO ID: [id number] Author: Avtar Bunch (Pa) Service: (none) Author Type: Physician Manager [employer] Type: Progress Notes Filed: 10/02/2017 4:14 PM [...] with activities which include exercise, golfing, 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 If you would like, you can [...] us: If you are having surgery at [facility] or If you are having surgery at [place], [place], [facility], [place], [place], [facility], or [facility] Referring Provider: SELF [200] Allergies As of Date: 10/02/2017 (No Known Allergies) Date Reviewed: 10/02/2017 Reviewed by: Jessica Powers Cma - Fully Assessed Reason for Visit: surgical consult left knee pain [Other] Primary Visit Diagnosis:Post-traumatic osteoarthritis of left knee [M17.32] Other Visit Diagnosis:Anemia, unspecified type [D64.9] Order(s):XR KNEE SPECIFY 1V LT [[id number]] Order #: [id number] FUTURE XR KNEE SPECIFY 1V LT [[id number]] Order #: [id number]. #:[id number] ROLLING WALKER [[id number]] Order #: [id number] PATIENT PLACED ON [place] TKA CARE PATH [[id number]] Order #: [id number]: 1 ALBUMIN BLD [SQALB] Order #: [id number] FUTURE CBC + DIFF [SQCBCDIF] Order #: [id number] FUTURE IRON + TIBC [SQIRON] Order #: [id number] FUTURE FERRITIN BLD [SQFERR] Order #: [id number] FUTURE BLOOD MANAGEMENT REFERRAL [[id number]] Order #: [id number]: 3 TOTAL JOINT REPLACEMENT PRE-SURGERY EDUCATION CLASS [[id number]] Order #: [id number]: 1 Prescriptions as of 10/02/2017 Sig: LISINOPRIL [...] the next three days at the nearest [facility] lab. If you would like, you can [...] us: If you are having surgery at [facility] or If you are having surgery at [place], [facility], [facility], or [facility] Medications Discontinued During This Encounter ibuprofen 200 mg ORAL Tab 0 12/13/2006 10/02/2017 Class: Historical Med Route: ORAL Sig: Take 1-2 tablet's) every four(4) to six(6) hours as needed for pain. Disc: Reason for discontinue is not on file. Encounter Status:Closed by JULIO C DAWSON, AVTAR Retana on 10/02/17 HOSP Observed: 10/02/2017 Status: COMPLETED Source: [facility] 12:00 AM [facility] OTHER CAMPUS REPOSITORY Patient:Justus Erickson III MRN: <[id number]> Height:6' 0(1.829 m) Weight:302 lb (136.986 kg) [...] 11/08/2017 5.1 3.7 Progress Notes (PRE ANES CAODAISM): Felicia Crooks APRN.NICOLASA 11/09/2017 6:[address] Erickson's Nasal swab was positive for staphylococcus aureus by PCR, negative for MRSA. Mupirocin (BACTROBAN) 2 % ointment E-scripted to patient's pharmacy. Please provide patient instructions. Thank you! Ashlyn Crooks APRN, SUPERINTENDENT CONCRETE [employer] [facility], [facility] [phone] Previous Version Colten Shelby, RN, RN 11/09/2017 1:30 PM Signed Patient called and notified of positive nasal swab. Order for mupirocin ointment placed by NICOLASA. Reviewed with patient how to use for 5 days prior to surgery. Verbalized understanding. Progress Notes (PRE ANES CAODAISM): Felicia Crooks APRN.NICOLASA 11/08/2017 8:26 AM Signed Can we please have Anesthesia review Dr. Erickson's EKG. Today, his EKG showed a non-specific conduction delay, previous EKG: SR, with arrhythmia. Thanks so much! Ashlyn Crooks APRN, SUPERINTENDENT CONCRETE [employer] [facility], [facility] [phone] Colten Shelby RN, RN 11/09/2017 1:28 PM Signed Reviewed by Dr. Du. No further action needed. HOSP Observed: 10/02/2017 Status: COMPLETED Source: [facility] 12:00 AM [facility] REPOSITORY Patient Update (ORAVON) JUSTUS ERICKSON ([id number]) 1965 M [facility] Date Time Provider Department 10/02/17 KALPANA SOLITARIO (RN) RYLAN During your visit today, we recorded the following information about you: Avtar Bunch PA-C 10/02/2017 4:00 PM Signed The purpose of this encounter is to schedule L uni vs TKA at [facility] on November Kalpana Solitario RN Allergies As of Date: 10/02/2017 (No Known Allergies) Date Reviewed: 10/02/2017 Reviewed by: Jessica Powers Cma - Fully Assessed Reason for Visit: Schedule Surgery [1330] Cmt: L uni vs TKA at [facility] on 11/29/2017 [place] Primary Visit Diagnosis:Primary osteoarthritis of left knee [M17.12] Order(s):SURGICAL REQUEST - ELECTIVE [[id number]] Order #: [id number]: 1 PATIENT PLACED ON [place] TKA CARE PATH [[id number]] Order #: [id number]: 1 CT KNEE WO IVCON LT [[id number]] Order #: [id number] FUTURE XR KNEE POST OP 3V AP/LAT/MERCHANT LT [[id number]] Order #: [id number] FUTURE Prescriptions as of 10/02/2017 Sig: LISINOPRIL [...] OR MORE Observed: 09/20/2017 Status: F Source: [place] VIEWS 3:41 PM [facility] REPOSITORY [facility] Imaging Services [address] [place] [address] Knee 4 or More Views MR#: [id number] Acct: [id number] Name: JUSTUS ERICKSON Rep #: [id number] : 1965 M 52 From: Daiana Sherman MD PCP: Elias Gibsb Jr. Status: REG CLI Study: Knee 4 or More Views Date of Exam: 09/20/17 Exam# [id number] Ordering Dr: Ryan Recinos DO STUDY: X-RAY [...] CC: Elias Gibbs Jr.; Ryan Recinos DO External Auditor: Signed CR-KNEE 4 OR MORE Observed: 09/20/2017 Status: F Source: [facility] 12:00 AM [facility] REPOSITORY Images were obtained outside of [facility] [id number] INITAL EVALUATION (1) Observed: 09/06/2017 Status: F Source: [place] - PT 8:45 AM [facility] REPOSITORY [facility] Physical Therapy [facility] [address] [place] [address]. [address] [place] [address] Fax REHABILITATION SERVICES INITIAL EVALUATION MR#: [id number] Acct: [id number] Name: JUSTUS ERICKSON Rep #: [id number] : 1965 52 From: Nadine Rudd DPT [...] to be FAXED BACK to us at [phone] for Medicare purposes. Please let me know [...] SEVERITY SOURCE 07/05/2018 Drug No Known Unknown [facility] Allergy/416 Allergies/O05052 Hospital 709194(SNOM 0388(RXNORM) Repository ED CT) Drug NO KNOWN [facility] Class/78573 ALLERGIES Other [place] 1003(SNOMED Repository CT) ENCOUNTERS ENCOUNTERS ADMIT/DISCHARGE ACCOUNT ADMITTING ENCOUNTER LOCATION SOURCE NUMBER CLASS 07/17/2018 [id number] [facility] ing:MRI Repository 07/05/2018 [id number] [facility] ing:HPRAD Repository 07/05/2018/07/05/19 [id number] Ambulatory BMSBuilding:B Lesly 19 [facility] Repository 06/17/2018/06/17/20 [id number] Ambulatory [address] Main [place] Repository 04/02/2018/04/03/20 [id number] Ambulatory [address] [place] Repository 03/19/2018 [id number] [facility] ing:LAB Repository 03/05/2018/03/05/20 [id number] Ambulatory [address] [place] Repository 02/21/2018/02/23/20 [id number] Ambulatory [address] [place] Repository 12/18/2017/12/19/19 [id number] Ambulatory [address] [place] Repository 12/18/2017/12/19/19 [id number] Ambulatory [address] [place] Repository 11/30/2017/12/01/19 [id number] AARTI [address] Other [place] Repository 11/08/2017 [id number] Ambulatory [facility] Other [place] Repository 11/08/2017 [id number] Ambulatory [facility] Other [place] Repository 11/08/2017/11/09/19 [id number] Ambulatory [address] [place] Repository 10/18/2017/10/19/19 [id number] Ambulatory [address] [place] Repository 10/02/2017/10/03/19 [id number] Ambulatory [address] [place] Repository 10/02/2017/10/05/19 [id number] Ambulatory [address] [place] Repository 09/20/2017/09/21/19 [id number] Ambulatory [address] ing:PT Repository 09/20/2017 [id number] [facility] ing:HPRAD Repository PAYERS PAYERS ENCOUNTER GUARANTOR PAYER SUBSCRIBER SOURCE 07/17/2018 JUSTUS Parks JUTSUS Dey Lesly [id number] Insurance:OBWC PEABODYDOB: Community [facility] [id number] Number: Repository [address]Dro: [phone]) [id number] [phone] () Date:3849-11-59ZF [address], [place] [address]AY: 07/17/2018 Secondary JUSTUS P Lesly Insurance:CIGNAPolicy PEABODYDOB: Community Number: [id number] Hospital [id number] Repository Date:0785-71-46QF [address]EUZMPRBDJBS, [place] [address]LF: 07/17/2018 Tertiary NOT GIVENUNK [place] Insurance:SELF PAY [facility] Number: Effective Repository Date:2018-07-12 07/05/2018 JUSTUS Dey Primary JUSTUS P Lesly [id number] Insurance:CIGNAPolicy PEABODYDOB: [facility] Number: [id number], [place] [id number] Repository [address]Jbr: 330) Date:0054-62-21XB [phone] () [id number], [place] [address]DT: 07/05/2018 Secondary NOT GIVENUNK [place] Insurance:SELF PAY [facility] Number: Effective Repository Date:2018-07-05 07/05/2018 JUSTUS Dey Primary JUSTUS P Lesly [id number] Insurance:OBWC PEABODYDOB: [facility] [id number], [place] Number: Repository [address]Ykk: 330 [id number] [phone] () Date:0545-00-68IR [address]XUCRLUJ[place], [place] [address]DD: 07/05/2018 Secondary NOT GIVENUNK [place]ly Insurance:SELF PAY [facility] Number: Effective Repository Date:2018-07-05 03/19/2018 JUSTUS Dey Primary JUSTUS Dey Lesly [id number] Insurance:CIGNAPolicy PEABODYDOB: Community [facility] Number: [id number], [place] [id number] Repository [address]Ryk: ([phone]) Date:1300-14-78MG [phone] () 570[place]BYGRYVWLTVT, [place] [address]XA: 03/19/2018 Secondary NOT GIVENUNK [place] Insurance:SELF PAY [facility]: Effective Repository Date:2018-03-19 09/20/2017 JUSTUS Dey Primary JUSTUS Dey Lesly [id number] Insurance:CIGNAPolicy PEABODYDOB: Community [facility] Number: [id number] [place] [id number] Repository [address]Jfj: (330) Date:5637-26-27FG [phone] () 799172KCKWMKEVIYF, [place] [address]WO: 09/20/2017 Secondary NOT GIVENUNK [place] Insurance:SELF PAY [facility]: Effective Repository Date:2017-08-29 09/20/2017 JUSTUS Dey Primary JUSTUS Horneroster [id number] Insurance:CIGNAPolicy PEABODYDOB: Community [facility] Number: [id number] [place], [place] [id number] Repository [address]Rjb: (330) Date:5393-93-09YN [phone] () 213585QHRJQBXJJSA, [place] [address]WM: 09/20/2017 Secondary NOT GIVENUNK Lesly Insurance:SELF PAY [facility] Number: Effective Repository Date:2017-09-20
== END ==
PROVIDERS: Family Provider Family Medicine; PCP Family Medicine; Referring Provider Physician Assistant Surgical; Visit Provider Physician Assistant Surgical
DX: S29.011A Strain of muscle and tendon of front wall of thorax, initial encounter (principal); X58.XXXA Exposure to other specified factors, initial encounter; Y93.9 Activity, unspecified; Y92.9 Unspecified place or not applicable; Y99.9 Unspecified external cause status
CPT/HCPCS: 71550; 73221

== ENCOUNTER → 2018-09-13 16:54 | Outpatient (CLI) | payer OTHER, SELFPAY ==
[2018-09-13 16:48] VITALS: BMI 40.8
--- NOTE | 2018-09-13 16:57 | RAD_ITS ---
STUDY: X-RAY - LEFT KNEE REASON FOR EXAM: Male, 53 years old. Fall. Pain. TECHNIQUE: 4 view(s) of the knee. COMPARISON: None. FINDINGS: Normal visualized distal femur. Normal visualized proximal tibia and fibula. Normal proximal tibiofibular articulation. There is no demonstrated fracture. Satisfactory appearance of a medial compartment hemiarthroplasty. Normal lateral femorotibial compartment. Normal patellofemoral articulation. There is a moderate volume joint effusion. The soft tissue structures are unremarkable. RAD/Knee 4 or More Views IMPRESSION: Moderate knee effusion. No acute abnormalities of the bones or joints. Grossly satisfactory appearance of the medial compartment hemiarthroplasty. Electronically Signed: Otf Jean MD at 17:54 EDT , Service support ,
--- NOTE | 2018-09-13 16:57 | RAD_ITS ---
STUDY: X-RAY - LEFT SHOULDER REASON FOR EXAM: Male, 53 years old. Pain. Fall. TECHNIQUE: 4 view(s) of the shoulder. COMPARISON: None. FINDINGS: Normal glenohumeral articulation. Normal acromioclavicular joint. Normal acromion. Normal humeral head and visualized proximal humerus. The soft tissue structures are unremarkable. There is no demonstrated fracture. Normal visualized pulmonary apex. RAD/Shoulder min 2 Views IMPRESSION: Normal x-ray examination of the shoulder. Electronically Signed: Otf Jean MD at 17:49 EDT , Service support ,
== END ==
PROVIDERS: Family Provider Family Medicine; PCP Family Medicine; Referring Provider Nurse Practitioner Family; Visit Provider Nurse Practitioner Family
DX: R52 Pain, unspecified (principal)
CPT/HCPCS: 73030; 73564

== ENCOUNTER → 2018-10-03 15:52 | Outpatient (CLI) | payer OTHER, SELFPAY ==
[2018-09-20 06:09] VITALS: BMI 40.8
--- NOTE | 2018-10-03 15:53 | MRI_ITS ---
STUDY: MRI LEFT SHOULDER REASON FOR EXAM: Male, 53 years old. Left shoulder pain. Fall. TECHNIQUE: Standardized fat and water weighted pulse sequences were obtained in all 3 orthogonal planes. COMPARISON: X-ray dated September 13, 2018. FINDINGS: Full-thickness retracted infraspinatus tendon tear (axial image 5 series 2 and coronal image 6 series 4). Infraspinous tendon retracted beyond the level of the glenoid (sagittal image 6 series 6). Moderate infraspinatus tendinosis. Severe infraspinatus muscle atrophy. Mild supraspinatus tendinosis. Mild subscapularis tendinosis. Normal teres minor tendon. Remainder of the rotator cuff muscles unremarkable. Normal intracapsular long biceps tendon. Biceps labral anchor intact. Mild labral degeneration without discrete tear. Capsular ligaments intact. Normal rotator cuff interval. Moderate/severe acromioclavicular joint arthrosis. Narrowing of the acromiohumeral interval. No acute fracture line. No dislocation. No acute cortical destruction. Trace glenohumeral joint fluid. Glenohumeral fluid extends through tear into the subacromial subdeltoid bursa. Intact coracohumeral and coracoacromial ligaments. Normal quadrilateral space. Normal axillary space. Normal deltoid muscle. Normal trapezius muscle. MRI/Upper Ext Joint Only(Routine) IMPRESSION: Full-thickness retracted infraspinatus tendon tear with underlying tendinosis and severe muscle atrophy Additional rotator cuff tendinosis Labral degeneration (SLAP type I) Moderate AC joint arthrosis with anterior impingement Trace glenohumeral joint effusion extending through tear into the subacromial subdeltoid bursa Electronically Signed: Derrick Dominguez DO at 12:27 EDT Tel , Service support ,
== END ==
PROVIDERS: Family Provider Family Medicine; PCP Family Medicine; Referring Provider Physician Assistant Surgical; Visit Provider Physician Assistant Surgical
DX: S46.812A Strain of other muscles, fascia and tendons at shoulder and upper arm level, left arm, initial encounter (principal); X58.XXXA Exposure to other specified factors, initial encounter; Y93.9 Activity, unspecified; Y92.9 Unspecified place or not applicable; Y99.9 Unspecified external cause status
CPT/HCPCS: 73221

== ENCOUNTER 2018-10-09 16:00 | Outpatient (RCR) | payer OTHER, SELFPAY ==
[2018-08-23 11:05] VITALS: BMI 40.8
[2018-09-13 16:48] VITALS: BMI 40.8
--- NOTE | 2018-09-19 13:36 | HP.PTEVAL_ITS ---
Patient's Visit Information ERYN ERICKSON is a 53 year old M referred to Physical Therapy by Иван Abel DO with a diagnosis of CONSTUSION OF LEFT HIP AND THIGH,STAIN OF MUSCLE AND TENDON OF FRONT THORAX. Date of Evaluation: 09/18/18 Physical Therapist: Pete Jin, PT, Cert MDT, OCS - Visit Plan Frequency: 3x /Week Duration: 4 Weeks Plan: INTIATE INTERVENTION FLEXABILITY LEFT HIP,SHOULDER - PETORALIS,STRENGTHENING RIGHT SHOULDER/PECTORALIS,HIP,STICK TO HIP/GROIN,MODALITES NEEDED ,ENDURANCE - Subjective Findings: This 53 y/o male presents to physical therapy for right pectoralis torn and left hip pain. Patient slipped at work on wet floor twisted left hip causing pain hip flexors and grapped on to rail with right arm catching self from falling on floor caused partial tear pectoralis region on 07/05/18. patient went to [facility] and had MRI of right CHEST REGION whiched showed pectoralis partial tear region.Then eventually seen Dr Leigh recommended PT,prior want 2 months before PT.Denies parathesia /tingling. Patient sleeping good. Patient had x-rays of hip -. Agrrevating factors. putting on pants /underwear,hip flexion. Symptoms okay elevating from chair,stairs,standing,walking. Patient symptoms affect QOL and function. SOCIAL: . 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 PALAPTION: tender left groin hip flexors,unremarkable right pectoralis major. GAIT: normal radha reciprocal pattern mild foward posture mild foward posture. NEURO: intact. AROM SHOULDER: shoulder flexion 160 flexion,abduction,160 degrees ,ER 90 degrees ,IR 70 degrees OP no pain. MMT: RTC 4/5,DELTOID 4/5,pectoralis major 4/5,shoulder extension,adduction 4/5. PROM: hip flexion 110 degrees,ER 50 degrees,IR 45 degrees ,hip extension 10 degrees mild soreness,hip abd 40 degrees. FLEXABLITY: hams mild/mod tight,hip flexors mod tight. MMT: left hip flexion 3+/5 pain IR/ER ,4-/5,sarritouis 4-/5 pain,hip abduction 4-/5. STAIRS: alternating with rail. PROPRIOCEPTION: diminished left > right - Special Tests L Hip Scour: Negative L Hip Quadrant - Intraarticular Pathology: Negative L Hip MAINE - Intraarticular Pathology: Negative L Hip Trendelenberg - Glut Medius: Negative L Hip Joy - IT Band: Negative R Shoulder Neer - Impingement: Negative R Shoulder Moe Epi - Impingement: Negative - Goals Goal 1:: Patient to be Independant with HEP Goal Time Frame: 4-6 Weeks Goal 2:: Patient to be decrease pain left hip/pectoralis right by 70 % or greater to improve gait and function. Goal Time Frame: 4-6 Weeks Goal 3:: Patient to increase strength of hip by 4/5 without pain and right UE /pectoralis 5/5 with symptoms to improve function. Goal Time Frame: 4-6 Weeks Goal 4:: Patient to normailize gait with pain for function. Goal Time Frame: 4-6 Weeks Goal 5:: Patient to improve LFES SCORE by 10-15 points to improve QOL Goal Time Frame: 4-6 Weeks Goal 6:: Pateint to be able to ER hip to put on scocks shoes pants without pain and ADLS' Goal Time Frame: 4-6 Weeks - Rehabilitation Potential Physical Therapy Diagnosis: This patient slipped and fell at work on wet floor 07/05/18 twisted left hip and grapping on to rail to catch himself with right arm causing pectoralis to be over stretched causing partial tear of pectorails region with current impairments with weakness left hip,ROM loss pain,difiiculty lifting leg for ex puuting on pants ,socks and weakness of right pectoralis thus benifit from skilled PT Rehabilitation Potential: Good - Anticipated Interventions Patient/Client Instruction: Educate patient on: Condition, Plan of Care For the Purpose of:: To decrease pain, To increase ROM, To improve muscle performance and motor function, To improve ability to perform ADL's, To increase tolerance to activity/condition/position, To improve performance and independence with ADL's, To improve ability of physical actions for home/community/work/leisure, To improve gait and locomotor functions, To improve health of tissue, To decrease soft tissue restriction, To increase flexibility/ROM, To improve endurance, To improve ability to perform tasks related to life management Therapeutic Exercise to Include: Strength training, Endurance training, Balance training, Postural training, Flexibilty training, Passive ROM, Active ROM Comment: HIP/KNEE LEFT,SHOULDER For the Purpose of:: To decrease pain, To increase ROM, To improve muscle performance and motor function, To improve ability to perform ADL's, To increase tolerance to activity/condition/position, To improve performance and independence with ADL's, To improve ability of physical actions for home/community/work/leisure, To improve gait and locomotor functions, To improve health of tissue, To decrease soft tissue restriction, To increase flexibility/ROM, To improve endurance, To improve ability to perform tasks related to life management Manual Therapy Techniques to Include: Mobilization, Soft tissue mobilization Comment: STICK For the Purpose of:: To decrease pain, To increase ROM, To improve nutrient delivery to tissue, To increase oxygenation perfusion, To improve health of tissue, To decrease soft tissue restriction TENS: Yes IF ES: Yes Cryotherapy (ice pack, ice massage): Yes Thermo therapy (hot pack): Yes Ultrasound (thermal/non thermal): Yes For the Purpose of:: To decrease pain, To increase ROM, To improve nutrient delivery to tissue, To increase oxygenation perfusion, To improve health of tissue, To decrease soft tissue restriction Thank you for the opportunity to evaluate your patient. For Medicare and Medicare HMO plans, please review the plan of care and approve it. It will need to be FAXED BACK to us at [phone] for Medicare purposes. For Medicare only, by signing this I certify the plan of care. Please let me know if there are questions or concerns regarding this plan of care. Physician Signature : Date:
--- NOTE | 2018-12-02 10:18 | HP.PTDCNRP_ITS ---
HP - Discharge Summary (1) - Patient Information ERYN ERICKSON III was seen in my office for initial evaluation on 09/18/18. The following Plan of Care was established for this patient: Initial Frequency: 3x /Week Initial Duration: 4 Weeks - Anticipated Interventions Patient/Client Instruction: Educate patient on: Condition, Plan of Care For the Purpose of:: To decrease pain, To increase ROM, To improve muscle p erformance and motor function, To improve ability to perform ADL's, To increase tolerance to activity/condition/position, To improve performance and independence with ADL's, To improve ability of physical actions for home/community/work/leisure, To improve gait and locomotor functions, To improve health of tissue, To decrease soft tissue restriction, To increase flexibility/ROM, To improve endurance, To improve ability to perform tasks related to life management Therapeutic Exercise to Include: Strength training, Endurance training, Balance training, Postural training, Flexibilty training, Passive ROM, Active ROM For the Purpose of:: To decrease pain, To increase ROM, To improve muscle performance and motor function, To improve ability to perform ADL's, To increase tolerance to activity/condition/position, To improve performance and independence with ADL's, To improve ability of physical actions for home/community/work/leisure, To improve gait and locomotor functions, To improve health of tissue, To decrease soft tissue restriction, To increase flexibility/ROM, To improve endurance, To improve ability to perform tasks related to life management Manual Therapy Techniques to Include: Mobilization, Soft tissue mobilization Comment: STICK For the Purpose of:: To decrease pain, To increase ROM, To improve nutrient delivery to tissue, To increase oxygenation perfusion, To improve health of tissue, To decrease soft tissue restriction TENS: Yes IF ES: Yes Cryotherapy (ice pack, ice massage): Yes Thermo therapy (hot pack): Yes Ultrasound (thermal/non thermal): Yes For the Purpose of:: To decrease pain, To increase ROM, To improve nutrient delivery to tissue, To increase oxygenation perfusion, To improve health of tissue, To decrease soft tissue restriction This patient was last seen in our office . Pertinent comments regarding their Physical therapy will appear below: Patient seen for PT for right chest ,left hip strain with PT focusing on strengthening,ROM,stretching. Patient then seen DR for left shoulder thus have C9 for left shoulder and this current POC is d/c. At this point I will be discontinuing this patient from physical therapy. I would be happy to see this patient again in the future if found appropriate by the physician. Thank you! Pete Jin, PT, Cert MDT, OCS
== END 2018-10-09 19:00 | disposition home or self-care (01) ==
LOC: PT 16:00
PROVIDERS: Family Provider Family Medicine; PCP Family Medicine; Referring Provider Orthopaedic Surgery; Visit Provider Orthopaedic Surgery
DX: S46.911D Strain of unspecified muscle, fascia and tendon at shoulder and upper arm level, right arm, subsequent encounter (principal); S70.02XD Contusion of left hip, subsequent encounter
CPT/HCPCS: 97110; 97162

== ENCOUNTER → 2018-11-13 11:00 | Outpatient (CLI) | payer OTHER, SELFPAY ==
[2018-11-13 10:55] VITALS: BMI 40.8
--- NOTE | 2018-11-13 11:02 | RAD_ITS ---
STUDY: X-RAY - RIGHT KNEE REASON FOR EXAM: Male, 53 years old. Knee pain. TECHNIQUE: 5 view(s) of the knee. COMPARISON: None. FINDINGS: Normal visualized distal femur. Normal visualized proximal tibia and fibula. Normal proximal tibiofibular articulation. There is moderate degenerative arthrosis of the medial femorotibial compartment with moderate joint space narrowing. There is moderate degenerative arthrosis of the lateral femorotibial compartment with moderate joint space narrowing. There is moderate degenerative arthrosis of the patellofemoral articulation. There is a moderate volume joint effusion. Calcifications in medial lateral meniscus are noted are consistent with chondrocalcinosis. The soft tissue structures are unremarkable. RAD/Knee 4 or More Views IMPRESSION: Degenerative arthrosis. Chondrocalcinosis. Electronically Signed: Melody Long, at 8:09 EDT Tel , Service support ,
== END ==
PROVIDERS: Family Provider Family Medicine; PCP Family Medicine; Referring Provider Orthopaedic Surgery; Visit Provider Orthopaedic Surgery
DX: M25.561 Pain in right knee (principal)
CPT/HCPCS: 73564

== ENCOUNTER → 2018-11-20 16:33 | Outpatient (CLI) | payer OTHER, SELFPAY ==
[2018-11-13 10:55] VITALS: BMI 40.8
--- NOTE | 2018-11-20 16:34 | MRI_ITS ---
STUDY: MRI RIGHT KNEE REASON FOR EXAM: Male, 53 years old. Osteoarthritis. Previous surgery 35 years ago. TECHNIQUE: Standardized fat and water weighted pulse sequences were obtained in all 3 orthogonal planes. COMPARISON: X-ray November 13, 2018. FINDINGS: There is tunneling of the distal femur and proximal tibia with previous anterior cruciate ligament reconstruction. There is adjacent susceptibility artifact at the distal femur. There is medial meniscus tear of the posterior horn, series 7 images 46 through . There is focal, full thickness articular cartilage loss of the medial femorotibial compartment. There is mild osteoarthritic spur formation of the medial knee compartment. There is a partial sprain of the MCL with interstitial and periligamentous edema. Normal distal semimembranosus, gracilis and semitendinosus tendons. There is lateral meniscus tear of the posterior horn, series 7 images through . Normal hyaline cartilage of the lateral femorotibial compartment. Normal lateral femoral condyle and tibial plateau. Normal proximal tibiofibular articulation. Normal lateral collateral (fibular) ligament. Normal popliteus tendon. Normal biceps femoris tendon. Postoperative changes with reconstruction of the anterior cruciate ligament (ACL). Normal posterior cruciate ligament (PCL). There is arthrosis of the patellofemoral articulation. There is diffuse, less than 50% thickness articular cartilage loss of the patellofemoral compartment. Normal medial and lateral patellar retinaculum. There is quadriceps tendinosis with thickening and partial tear of the tendon. Normal patellar tendon. Normal Hoffa's fat pad. There is a moderate volume joint effusion. There is subcutaneous edema. The otherwise visualized osseous structures are unremarkable. MRI/Lower Ext Joint Only (Routine) IMPRESSION: Medial meniscus tear. Lateral meniscus tear. Medial collateral ligament sprain. Quadriceps tendinosis and partial tearing. Prior anterior cruciate ligament reconstruction. Degenerative change. Joint effusion. Electronically Signed: Jose Devlin MD at 19:35 EDT , Service support ,
== END ==
PROVIDERS: Family Provider Family Medicine; PCP Family Medicine; Referring Provider Orthopaedic Surgery; Visit Provider Orthopaedic Surgery
DX: M17.11 Unilateral primary osteoarthritis, right knee (principal)
CPT/HCPCS: 73721

== ENCOUNTER 2019-03-03 16:30 | Outpatient (RCR) | payer OTHER, SELFPAY ==
[2018-11-13 10:55] VITALS: BMI 40.8
--- NOTE | 2018-12-02 14:17 | HP.PTEVAL ---
Patient's Visit Information ERYN ERICKSON III is a 53 year old M referred to Physical Therapy by MARIANELA ANTHONY with a diagnosis of STRAIN OF MUSCLE ND TENDON OF THE ROTATOR CUFF OF LEFT SHOULDER,SPRAIN LEFT. Date of Evaluation: 12/02/18 Physical Therapist: Pete Jin, PT, Cert MDT, OCS - Visit Plan Frequency: 2x /Week Duration: 8weeks Plan: RTC/SCAPULAR EX'S,POSTURAL EX'S,MODALTIES NEEDED - Subjective Findings: This 53 y/o male presents to physical therapy with left shoulder infraspinatous tear. Patient injuried left shoulder September 13 2018 ,slipped and fell with left arm grabbing onto scrubb sink. Patient had immediate pain . Patient had MRI showed torn infraspinatous . Recommended to See Dr Anthony . At this point ,recommended PT for strengthening for RTC /deltoid/scapular scapular stabilizers.Patient symptoms more global sensation ,occassional posterior joint.Patient has difficulty sleeping on left side with parathesia. Patient has difficulty with job demands and housework tasks. Has difficulty lifting [place] for function. SOCAIL: . VOCATION: [employer] - Objective POSTURE: rounded shoulders posture. NEURO: intact. PALAPTION: unremarkbale. AROM: flexion 155 degrees ,abduction 155,ER 90 degrees,IR 80 degrees. FUNCTIONAL TEST: behind cervical C7,IR L1. MMT: infraspinatous 3+/5,subscapularis 4/5,supraspinatous 4-/5,deltoid 4-/5 anterior /lateral ,middle traps 3+/5,lower traps 3-/5 - Special Tests R Shoulder External Rotation Lag Test - RC Tear: Positive R Shoulder Supine Impingement Test - RC Tear: Negative R Shoulder Lift Off Test - Subscapular Tear: Negative R Shoulder Drop Sign - IS Test: Negative R Shoulder Empty Can - SS: Negative R Shoulder Belly Press - SupScap: Negative R Shoulder Neer - Impingement: Negative R Shoulder Moe Epi - Impingement: Negative - Goals Goal 1:: Independant with HEP Goal Time Frame: 6-8 Weeks Goal 2:: Improve postural awarness with functional activities. Goal Time Frame: 6-8 Weeks Goal 3:: Patient To decrease episodes of pain with job demands by 75% > to improve function. Goal Time Frame: 6-8 Weeks Goal 4:: Patient increase strength right shoulder by 1/2 grade to improve function. Goal Time Frame: 6-8 Weeks Goal 5:: Patient to improve quick dash score by 5 points or greater to imptrove function. Goal Time Frame: 6-8 Weeks - Rehabilitation Potential Physical Therapy Diagnosis: This patient has left shoulder infraspinatous tear with weskness,some pain with actiity impairs job demnads and ADL's thus benifit from skilled PT Rehabilitation Potential: Good - Anticipated Interventions Patient/Client Instruction: Educate patient on: Condition, Plan of Care For the Purpose of:: To decrease pain, To improve muscle performance and motor function, To improve ability to perform ADL's, To increase tolerance to activity/condition/position, To improve ability of physical actions for home/community/work/leisure, To improve health of tissue, To decrease soft tissue restriction, To improve ability to perform tasks related to life management Therapeutic Exercise to Include: Strength training, Postural training, Flexibilty training, Active ROM, Scapular Strength/Stabilization Comment: RTC For the Purpose of:: To decrease pain, To increase ROM, To improve muscle performance and motor function, To increase tolerance to activity/condition/position, To improve performance and independence with ADL's, To improve ability of physical actions for home/community/work/leisure, To improve health of tissue, To decrease soft tissue restriction, To increase flexibility/ROM, To improve ability to perform tasks related to life management TENS: Yes IF ES: Yes Cryotherapy (ice pack, ice massage): Yes Thermo therapy (hot pack): Yes Ultrasound (thermal/non thermal): Yes For the Purpose of:: To decrease pain, To increase ROM, To improve nutrient delivery to tissue, To increase oxygenation perfusion, To improve health of tissue, To decrease soft tissue restriction Thank you for the opportunity to evaluate your patient. For Medicare and Medicare HMO plans, please review the plan of care and approve it. It will need to be FAXED BACK to us at [phone] for Medicare purposes. For Medicare only, by signing this I certify the plan of care. Please let me know if there are questions or concerns regarding this plan of care. Physician Signature: Date:
--- NOTE | 2019-04-24 17:06 | HP.PT.NRP ---
HP - Discharge Summary (1) - Patient Information ERYN ERICKSON III was seen in my office for initial evaluation on 12/02/18. The following Plan of Care was established for this patient: Initial Frequency: 2x /Week Initial Duration: 8weeks - Anticipated Interventions Patient/Client Instruction: Educate patient on: Condition, Plan of Care For the Purpose of:: To decrease pain, To improve muscle performance and motor function, To improve ability to perform ADL's, To increase tolerance to activity/condition/position, To improve ability of physical actions for home/community/work/leisure, To improve health of tissue, To decrease soft tissue restriction, To improve ability to perform tasks related to life management Therapeutic Exercise to Include: Strength training, Postural training, Flexibilty training, Active ROM, Scapular Strength/Stabilization For the Purpose of:: To decrease pain, To increase ROM, To improve muscle performance and motor function, To increase tolerance to activity/condition/position, To improve performance and independence with ADL's, To improve ability of physical actions for home/community/work/leisure, To improve health of tissue, To decrease soft tissue restriction, To increase flexibility/ROM, To improve ability to perform tasks related to life management TENS: Yes IF ES: Yes Cryotherapy (ice pack, ice massage): Yes Thermo therapy (hot pack): Yes Ultrasound (thermal/non thermal): Yes For the Purpose of:: To decrease pain, To increase ROM, To improve nutrient delivery to tissue, To increase oxygenation perfusion, To improve health of tissue, To decrease soft tissue restriction This patient was last seen in our office 03/03/19. Pertinent comments regarding their Physical therapy will appear below: Patient was seen for PT for left shoulder pain with RTC tear with PT tx focusing on strengthening /postural ex's with patient doing very well mild to no pain. At this point I will be discontinuing this patient from physical therapy. I would be happy to see this patient again in the future if found appropriate by the physician. Thank you! Pete Jin, PT, Cert MDT, OCS
== END 2019-03-03 19:00 | disposition home or self-care (01) ==
LOC: PT 16:30
PROVIDERS: Family Provider Family Medicine; PCP Family Medicine
DX: S46.912D Strain of unspecified muscle, fascia and tendon at shoulder and upper arm level, left arm, subsequent encounter (principal)
CPT/HCPCS: 97110; 97162

== ENCOUNTER 2019-08-15 12:00 | Outpatient (RCR) | payer OTHER, SELFPAY ==
[2019-04-02 08:07] VITALS: BMI 40.8
--- NOTE | 2019-07-01 09:36 | HP.PTEVAL_ITS ---
Patient's Visit Information ERYN ERICKSON III is a 54 year old M referred to Physical Therapy by Bear Martinez with a diagnosis of Right Total Knee Replacement. Date of Evaluation: 07/01/19 Physical Therapist: Nadine Rudd DPT - Visit Plan Frequency: 2x /Week Duration: 4 Weeks Plan: Focus on LE ROM and Strength. Limitations: Hams 10# limit Quads 10-15# limit - Subjective Findings: Right TKR by Dr. Manriquez Jun 05, 2019. Had home therapy and is now discharged- hematoma drained 8 days post op- suture and wound vac- nearly all the way healed at this point. Pain leve is mostly at 4-5 mostly after work out he will swing to an 8/10. Ices after workout and it makes it feel better. Does have hip issues since surgery- hopes to have a cortisone injection as he has had this before and it went away with that. Sleep: can't sleep on that side so he is on his back, belly and the left side. No N/T. Describes the pain as dull and achy. Does know s/s of infection and has none. 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 No loss of bowel and bladder. Is not currently doing stairs- does have them at home. Does the ones going in.out of the home and does non recip. No AD currently. Unsure of ROM after home health left. PMHx: HTN, Left Maxwell 2018 Meds: amolodepine, and another BP med- no change since last. Needs to get compression socks and return to work. - Objective Posture: FH, RS- can correct but does not maintain- overweight. Gait: slightly antalgic- decreased stance on the right LE with poor heel/toe pattern due to decreased extension. Palpation: tender along lateral joint line. Observation: incision healing well- no s/s of infection- mild edema on the lateral aspect of the knee. SLS: 3 sec then LOB. HR/TR: able without pain. ROM: 20-108 with pain at end range. Strength: Ankle: 5/5, Knee: 4+/5 SLR: mild lag, Hip: 4+/5. Flex: HS: severe, Gastroc: moderate - Goals Goal 1:: Patient will be I with HEP and progression Goal Time Frame: 4-6 Weeks Goal 2:: Patient will ambulate >300 feet with a normalized gait pattern Goal Time Frame: 4-6 Weeks Goal 3:: Patient will asc/desc 8 recip with 1 HR and good control Goal Time Frame: 4-6 Weeks Goal 4:: Patient will demo 0-120 degrees of ROM in the right knee Goal Time Frame: 4-6 Weeks - Rehabilitation Potential Physical Therapy Diagnosis: Patient presents s/p Right TKR- he has decreased ROM, strength, flex and muscular endurance leading to abnormal gait and decreased particpation in ADL's and work related tasks Rehabilitation Potential: Good - Anticipated Interventions Patient/Client Instruction: Educate patient on: Benefits of Fitness Program Therapeutic Exercise to Include: Strength training, Endurance training, Balance training, Body mechanics, Postural training, Flexibilty training, Gait and locomotor training, Passive ROM, Active ROM, Dynamic Lumbar Stabilization, Scapular Strength/Stabilization For the Purpose of:: To improve muscle performance and motor function TENS: Yes Cryotherapy (ice pack, ice massage): Yes Thermo therapy (hot pack): Yes Ultrasound (thermal/non thermal): No Vasopneumatic device: Yes For the Purpose of:: To improve muscle performance and motor function Thank you for the opportunity to evaluate your patient. For Medicare and Medicare HMO plans, please review the plan of care and approve it. It will need to be FAXED BACK to us at [phone] for Medicare purposes. For Medicare only, by signing this I certify the plan of care. Please let me know if there are questions or concerns regarding this plan of care. Physician Signature: Date:
--- NOTE | 2019-08-15 12:56 | HP.PTDCSUM ---
HP - PT D/C Summary It has been my pleasure to treat ERYN ERICKSON III under orders from Bear Martinez, for the diagnosis of Right Total Knee Replacement for a total of 13 visit(s). Discharge Date: Please see the following information for a summary of their discharge status. - Subjective Subjective: Patient reports that today is his last day. he is happy with progress just back to work and feels I with HEP - Overall Improvement % Improvement: 60 - Objective Objective/Function: Patient was able to complete without incidence. ROM 0-115 degrees of flexion with overpressure. Patient is able to asc/desc 8 stairs recip and his gait pattern is only slightly antalgic. Strength in 5/5 throughout - Goals Goal 1:: Patient will be I with HEP and progression Goal 2:: Patient will ambulate >300 feet with a normalized gait pattern Goal 3:: Patient will asc/desc 8 recip with 1 HR and good control Goal 4:: Patient will demo 0-120 degrees of ROM in the right knee - Plan Plan: Discharge to HEP - D/C Information If there are questions or concerns regarding this patient's physical therapy, please feel free to call me at [phone]. Thank you for the referral of this patient. Sincerely, Nadine Rudd DPT
== END 2019-08-15 13:12 | disposition home or self-care (01) ==
LOC: PT 12:00
PROVIDERS: Family Provider Family Medicine; PCP Family Medicine; Referring Provider Orthopaedic Surgery; Visit Provider Orthopaedic Surgery
DX: Z96.651 Presence of right artificial knee joint (principal); G89.18 Other acute postprocedural pain; M25.561 Pain in right knee
CPT/HCPCS: 97014; 97110; 97161; 97530; G0283